=== PATIENT | male | born 1950 | race Hispanic/Latino ===

== ENCOUNTER 2016-10-18 23:03 | Emergency (ER) | payer OTHER, MEDICARE ==
[~2016-10-18] VITALS: Ht 180.3 cm; Wt 93.0 kg
[2016-10-18 23:08] VITALS: BP 147/73
--- NOTE | 2016-10-18 23:53 | RADIOLOGY REPORT ---
EXAMINATION: XR ANKLE, RIGHT CLINICAL INFORMATION: Pain. COMPARISON: None TECHNIQUE: AP, lateral, and mortise views of the right ankle. FINDINGS: There is a transverse fracture at the medial malleolus. There is no significant overlying soft tissue swelling at this location and the margins appear somewhat sclerotic, suggesting this is chronic. There is also a chronic healed fibular diaphyseal fracture noted. Ankle mortise is congruent. Significant degenerative changes are seen along the talar dome and ankle mortise with osteophyte formation. There is a prominent plantar heel spur. The soft tissues appear unremarkable. No ankle joint effusion. IMPRESSION: No definite acute fracture. Transverse fracture line of the medial malleolus has a chronic appearance. Degenerative changes along the ankle mortise. Plantar heel spur.
[2016-10-19] MEDS ORDERED: PERCOCET 5-3251 EACH PO (00:16)
--- NOTE | 2016-10-19 00:17 | ED ANKLE/FOOT INJURY COMPLAINT ---
History of Present Illness General Chief Complaint: Foot or Ankle Injury Stated Complaint: RIGHT ANKLE PAIN, Source: patient Exam Limitations: no limitations Vital Signs & Intake/Output Vital Signs & Intake/Output Vital Signs Date Time Temp Pulse Resp B/P B/P Pulse O2 O2 Flow FiO2 Mean Ox Delivery Rate 10/18 2308 98.5 82 20 147/73 97 Room Air ED Intake and Output 10/19 0000 10/18 1200 Intake Total Output Total Balance Patient 205 lb Weight Weight Reported by Patient Measurement Method Allergies Coded Allergies: No Known Allergies (10/18/16) Reconcile Medications Oxycodone HCl/Acetaminophen (Percocet 5-325 MG Tablet) 5 MG-325 MG TABLET 1-2 TAB PO Q6P PRN PAIN Triage Note: TRIAGE: PT TO ER C/C R ANKLE PAIN, ONSET THURSDAY S/P TWISTING INJURY. HAS TRIED ALEVE AND EXCEDRIN. Triage Nurses Notes Reviewed? yes Duration: day(s): (1), constant, continues in ED Timing: recent history Severity: moderate, severe Pain/Injury Location: Right: Ankle. No Modifying Factors: none HPI: 66-year-old male comes into emergency room with complaints of right ankle pain. Patient reports that the symptoms of a going on for the past day. Patient reports she slipped and twisted his ankle yesterday. History of previous fractures when he was younger and this ankle. Denies any trauma anywhere else on his body. Denies any other associated symptoms. (FCO [place]) Past History Travel History Traveled to [place] past 21 day No Medical History Any Pertinent Medical History? 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 No (FCO [place]) Review of Systems Review of Systems Constitutional: Reports: no symptoms. EENTM: Reports: no symptoms. Respiratory: Reports: no symptoms. Cardiovascular: Reports: no symptoms. GI: Reports: no symptoms. Genitourinary: Reports: no symptoms. Musculoskeletal: Reports: see HPI. Skin: Reports: no symptoms. Neurological/Psychological: Reports: no symptoms. Hematologic/Endocrine: Reports: no symptoms. Immunologic/Allergic: Reports: no symptoms. All Other Systems: Reviewed and Negative (FCO [place]) Physical Exam Physical Exam General Appearance: well developed/nourished, mild distress Head: atraumatic Eyes: Bilateral: normal appearance, EOMI. Ears, Nose, Throat: normal ENT inspection, hearing grossly normal Neck: normal inspection Cardiovascular/Respiratory: no respiratory distress Back: normal inspection Leg/Knee/Thigh Left: normal range of motion Leg/Knee/Thigh Right: normal range of motion Ankle Right: soft tissue tenderness, swelling, tenderness, limited range of motion Neuro/Vascular: normal motor function, normal sensation Psychiatric: awake, alert, oriented x 3 Skin: intact, normal color, warm/dry (FCO [place]) Progress Differential Diagnosis: fracture, dislocation, sprain, contusion, compartmental syndrome Plan of Care: 10/19/2016 12:22:53 AM Patient clinically looks well. Nontoxic-appearing. No evidence of fracture. Follow-up with orthopedic doctor. Return if any other concerns. Diagnostic Imaging: Viewed by Me: Radiology Read. Discussed w/RAD: Radiology Read. Radiology Impression: SERVICE DATE: 10/18/16 EXAM TYPE: RAD - XRY-ANKLE 3 OR MORE VIEWS R EXAMINATION: XR ANKLE, RIGHT CLINICAL INFORMATION: Pain. COMPARISON: None TECHNIQUE: AP, lateral, and mortise views of the right ankle. FINDINGS: There is a transverse fracture at the medial malleolus. There is no significant overlying soft tissue swelling at this location and the margins appear somewhat sclerotic, suggesting this is chronic. There is also a chronic healed fibular diaphyseal fracture noted. Ankle mortise is congruent. Significant degenerative changes are seen along the talar dome and ankle mortise with osteophyte formation. There is a prominent plantar heel spur. The soft tissues appear unremarkable. No ankle joint effusion. IMPRESSION: No definite acute fracture. Transverse fracture line of the medial malleolus has a chronic appearance. Degenerative changes along the ankle mortise. Plantar heel spur. DICTATED BY: FROYLAN BORJAS,KATHIE DATE/TIME DICTATED:10/18/162347 PRELOAD SUPERVISOR:ARMIN DATE/TIME TRANSCRIBED:10/18/162347 (FCO [place]) Departure Departure Disposition: HOME OR SELF CARE Condition: Stable Clinical Impression Primary Impression: Right ankle sprain Referrals: UNKNOWN (PCP/Family) Additional Instructions: Ice. Rest. Motrin for pain. Elevation. Follow-up with orthopedic doctor provided if not better in 3-5 days. If symptoms do not improve you'll require further evaluation with possible repeat x-rays as well as evaluation by automotive alignment specialist. Sprains can last anywhere from days to weeks. No high impact running or jumping if you have an ankle sprain or any type of lower extremity sprain. Return to normal activity only after symptoms have resolved. Departure Forms: Customer Survey General Discharge Information Prescriptions: Current Visit Scripts Oxycodone HCl/Acetaminophen (Percocet 5-325 MG Tablet) 1-2 TAB PO Q6P PRN PAIN #15 TAB (FCO [place]) PA/SEQUINS STRINGER Co-Sign Statement Statement: ED Attending supervision documentation- [] I saw and evaluated the patient. I have also reviewed all the pertinent lab results and diagnostic results. I agree with the findings and the plan of care as documented in the PA's/SEQUINS STRINGER's documentation. [X] I have reviewed the ED Record and agree with the PA's/SEQUINS STRINGER's documentation. [] Additions or exceptions (if any) to the PAs/SEQUINS STRINGER's note and plan are summarized below: [] (BOSTON BORJAS,SHELLEY Shine) Procedures Splinting Location: right ankle Pre-Made Type: pneumatic blue Splint Applied By: splint applied by me Pre-Proc Neuro Vasc Exam: normal Post-Proc Neuro Vasc Exam: normal (FCO [place])
== END 2016-10-19 00:42 ==
LOC: ERH 23:03
DX: S93.401A Sprain of unspecified ligament of right ankle, initial encounter (principal); W01.0XXA Fall on same level from slipping, tripping and stumbling without subsequent striking against object, initial encounter; Y92.9 Unspecified place or not applicable; Y93.9 Activity, unspecified
CPT/HCPCS: 73610-RT

== ENCOUNTER 2016-10-27 11:45 | Inpatient (IN) | payer OTHER, MEDICARE ==
[~2016-10-27] VITALS: Ht 180.3 cm; Wt 93.0 kg
[~2016-10-27 11:45] MED LIST: PERCOCET 5-3251 EACH PO
--- NOTE | 2016-10-27 11:50 | NUR ---
PT SENT IN BY . PT STATES HE SLIPPED AND HIS RIGHT ANKLE TURNED BLUE/RED/ PT WAS SENT FROM [facility] FOR EVAL TO R/O INFECTION VS GOUT. PT STATES HE WAS HERE A WEEK AGO THURSDAY AND WAS DISCHARGED WITH [facility].
[2016-10-27] MEDS ORDERED: LISINOPRIL-HCT1 EAC1 PO (12:50)
--- NOTE | 2016-10-27 13:30 | NUR ---
USMAN COATES AT BEDSIDE FOR EVAL.
--- NOTE | 2016-10-27 13:32 | ED ANKLE/FOOT INJURY COMPLAINT ---
History of Present Illness General Chief Complaint: Foot or Ankle Injury Stated Complaint: R FOOT ?INFECTED Source: patient Exam Limitations: no limitations Vital Signs & Intake/Output Vital Signs & Intake/Output Vital Signs Date Time Temp Pulse Resp B/P B/P Pulse O2 O2 Flow FiO2 Mean Ox Delivery Rate 10/27 1510 96.3 77 20 120/57 98 Room Air 10/27 1150 96.7 74 16 100/65 97 Room Air Allergies Coded Allergies: No Known Allergies (10/18/16) Reconcile Medications Amoxicillin 875 MG TABLET 1 TAB PO BID cellulitis Lisinopril/Hydrochlorothiazide (Lisinopril-Hctz 20-25 MG Tab) 20 MG-25 MG TABLET 1 TAB PO DAILY HEART (Reported) Oxycodone HCl/Acetaminophen (Percocet 5-325 MG Tablet) 5 MG-325 MG TABLET 1-2 TAB PO BID pain Sulfamethoxazole/Trimethoprim (Bactrim Ds Tablet) 800 MG-160 MG TABLET 1 TAB PO BID cellulitis Triage Note: PT SENT IN BY . PT STATES HE SLIPPED AND HIS RIGHT ANKLE TURNED BLUE/RED/ PT WAS SENT FROM [facility] FOR EVAL TO R/O INFECTION VS GOUT. Triage Nurses Notes Reviewed? yes Occurred: last week Duration: week(s): (1), constant, getting worse Timing: recent history Pain/Injury Location: Right: Ankle. Method of Injury: stubbed, twisted HPI: 66-year-old male comes into emergency room for further evaluation of swelling and pain to his right ankle. Patient was seen here week ago. Patient was given a boot and crutches and told to stay nonweightbearing to follow-up with orthopedic doctor. Patient ran out of his pain medication. Patient reports that a few days later he started to get some redness and pain to his ankle. Patient saw orthopedic doctor today who wanted to come in for further evaluation with blood work. [facility] across the street. Denies any fever chills. Complains of persistent sharp throbbing pain. (FCO [place]) Past History Travel History Traveled to [place] past 21 day No Medical History Any Pertinent Medical History? 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 No (FCO [place]) Review of Systems Review of Systems Constitutional: Reports: no symptoms. EENTM: Reports: no symptoms. Respiratory: Reports: no symptoms. Cardiovascular: Reports: no symptoms. GI: Reports: no symptoms. Genitourinary: Reports: no symptoms. Musculoskeletal: Reports: see HPI. Skin: Reports: see HPI. Neurological/Psychological: Reports: no symptoms. Hematologic/Endocrine: Reports: no symptoms. Immunologic/Allergic: Reports: no symptoms. All Other Systems: Reviewed and Negative (FCO [place]) Physical Exam Physical Exam General Appearance: well developed/nourished, mild distress Head: atraumatic Eyes: Bilateral: normal appearance. Ears, Nose, Throat: normal ENT inspection, hearing grossly normal Neck: normal inspection Cardiovascular/Respiratory: no respiratory distress Back: normal inspection Leg/Knee/Thigh Left: normal inspection Ankle Right: erythema, swelling, warm to touch, area approximately 6 cm in diameter Neuro/Vascular: normal motor function, normal sensation Psychiatric: awake, alert, oriented x 3 Skin: intact, normal color, warm/dry (FCO [place]) Progress Differential Diagnosis: DVT, CHF, arterial insufficiency, cellulitis, septic arthritis, gout, fracture, dislocation, sprain, contusion, compartmental syndrome Plan of Care: Orders Procedure Date/time Status Heart Healthy Diet 10/28 B Active Admit to inpatient 10/27 1628 Active Vital Signs 10/27 1628 Active Code Status 10/27 1628 Active Patient Data 10/27 1611 Active BLOOD CULTURE 10/27 1541 Active C-REACTIVE PROTEIN 10/27 1338 Complete CBC WITHOUT DIFFERENTIAL 10/27 1338 Complete BASIC METABOLIC PANEL 10/27 1338 Complete Current Medications Sig/Rajeev Start time Last Medication Dose Stop Time Status Admin Amoxicillin 500 MG ONCE ONE 10/27 1515 CAN (Amoxil) 10/27 1516 Trimethoprim/ 1 TAB ONCE ONE 10/27 1515 CAN Sulfamethoxazole 10/27 1516 (Bactrim DS) Laboratory Tests 10/27/16 1338: Anion Gap 18 H, Estimated GFR 38 L, BUN/Creatinine Ratio 28.3 H, Glucose 98, Calcium 9.9, C-Reactive Prot, Quant > 9.0 H, CBC w Diff NO MAN DIFF REQ, RBC 4.01 L, MCV 85.5, MCH 28.8, RDW 14.3, MPV 7.2 L, Gran % 78.4 H, Lymphocytes % 11.6 L, Monocytes % 7.7, Eosinophils % 2.1, Basophils % 0.2, Absolute Granulocytes 11.7 H, Absolute Lymphocytes 1.7, Absolute Monocytes 1.1 H, Absolute Eosinophils 0.3, Absolute Basophils 0, PUBS MCHC 33.6 Microbiology 10/27 1630 BLOOD: Blood Culture - RECD 10/27 1620 BLOOD: Blood Culture - RECD Departure Departure Disposition: HOME OR SELF CARE Condition: Stable Clinical Impression Primary Impression: Cellulitis of right ankle Referrals: ROSALIA HE APRN (PCP/Family) Departure Forms: Customer Survey General Discharge Information Prescriptions: Current Visit Scripts Sulfamethoxazole/Trimethoprim (Bactrim Ds Tablet) 1 TAB PO BID #14 TAB Amoxicillin 1 TAB PO BID #14 TAB Oxycodone HCl/Acetaminophen (Percocet 5-325 MG Tablet) 1-2 TAB PO BID #15 TAB Admission Note Spoke With: CADEN SCHULER MD Documentation of Exam: Documentation of any treatments & extenuating circumstances including Concerns Regarding Discharge (functional status, medication knowledge or non-compliance, living conditions, etc.) that warrant an admission rather than observation: Patient will require IV Unasyn. Patient has a significant cellulitis to right lower leg that will require IV meds. Orthopedic consultation. (FCO [place]) PA/COMPOSITION MOLDER Co-Sign Statement Statement: ED Attending supervision documentation- [X] I saw and evaluated the patient. I have also reviewed all the pertinent lab results and diagnostic results. I agree with the findings and the plan of care as documented in the PA's/COMPOSITION MOLDER's documentation. [] I have reviewed the ED Record and agree with the PA's/COMPOSITION MOLDER's documentation. [] Additions or exceptions (if any) to the PAs/COMPOSITION MOLDER's note and plan are summarized below: [] (MICHAEL PARMAR DO) ED Attending Observation Initial Observation Note: I have seen and personally examined ALLENANDREW ENRIQUEZ on 10/27/16 at 1352. I agree with the current emergency department documentation. The disposition (admission or discharge) is uncertain at this time, he needs a period of observation for the following reason(s): The ED Nurse caring for this patient has been personally informed as to what the patient is being observed for. (JAXON MARY,FCO)
[2016-10-27] MEDS ORDERED: BACTRIM DS TAB1 EACH PO (13:33)
[2016-10-27] MEDS ORDERED: AMOXICILLIN875 M1 PO (13:33)
[2016-10-27] MEDS ORDERED: PERCOCET 5-3251 EACH PO (13:33)
--- NOTE | 2016-10-27 14:13 | NUR ---
LABS DRAWN AND SENT BLUE, SST, LAV
[2016-10-27 14:20] LABS: ABSOLUTE BASOPHIL COUNT 0 /CUMM (0.0-0.2); ABSOLUTE EOSINOPHIL COUNT 0.3 /CUMM (0.0-0.7); ABSOLUTE GRANULOCYTE CT 11.7 /CUMM (1.4-6.5); ABSOLUTE LYMPH COUNT 1.7 /CUMM (1.2-3.4); ABSOLUTE MONOCYTE COUNT 1.1 /CUMM (0.10-0.60); BASOPHIL % 0.2 % (0.0-2.0); EOSINOPHIL % 2.1 % (0-5); HEMATOCRIT 34.3 % (42-52); MEAN CORPUSCULAR HGB 28.8 PG (27.0-31.0); MEAN CORPUSCULAR HGB CONC 33.6 G/DL (33.0-37.0); MEAN CORPUSCULAR VOLUME 85.5 FL (80.0-94.0); MEAN PLATELET VOLUME 7.2 FL (7.4-10.4); PLATELET COUNT 625 /CUMM (130-400); RBC DISTRIBUTION WIDTH 14.3 % (11.5-14.5); RED BLOOD CELL CT 4.01 /CUMM (4.70-6.10)
[2016-10-27 14:23] LABS: GRANULOCYTE % 78.4 % (42.2-75.2)
--- NOTE | 2016-10-27 16:30 | NUR ---
SECOND SET OF BLOOD CULTURES DONE AND SENT TO LAB.
--- NOTE | 2016-10-27 16:54 | History & Physical ---
LE RICO MD 10/27/16 0892: General Information and HPI MD Statement: I have seen and personally examined ANDREW ALLEN and documented this H&P. The patient is a 66 year old M who presented with a patient stated chief complaint of [right ankle pain]. Source of Information: patient Exam Limitations: agitation History of Present Illness: 66-year-old male with PMH of HTN, and right ankle fracture, came in for persistent right ankle pain, redness, and swelling. He was rather agitated during our interview (because he felt that he has been repeating himself, and being in pain - pt denies having pain meds although morphine has been given) and at times seem to be a poor historian. He reported that he slipped at work on October 17, and presented to the ER on October 18 around 1030 pm, with chief complaint of pain. No fracture was found at imaging at that time. He denies getting abx since then. He also was prescribed 15 pills of percocet which he filled on 10/19/16. Patient was given a boot and crutches and told to stay nonweightbearing to follow-up with orthopedic doctor. Patient ran out of his pain medication. He has tried aleve, excedrin, and ibuprofen, without significant relief in pain. He has seen his PCP, and orthopedic doctor, Dr. Juárez, at [facility], and he was asked to present here for gout workup. He continues to endorse 10/10 sharp pain localized to the right ankle, especially with movement, with associated redness, swelling, and warmth (area marked). Could not find his baseline labs (today's lab significant for bun/cr 51/1.8); pt reports having multiple workup done for his kidneys but he is unable to elaborate. Allergies/Medications Allergies: Coded Allergies: No Known Allergies (10/18/16) Home Med list Amoxicillin 875 MG TABLET 1 TAB PO BID cellulitis Lisinopril/Hydrochlorothiazide (Lisinopril-Hctz 20-25 MG Tab) 20 MG-25 MG TABLET 1 TAB PO DAILY HEART (Reported) Oxycodone HCl/Acetaminophen (Percocet 5-325 MG Tablet) 5 MG-325 MG TABLET 1-2 TAB PO BID pain Sulfamethoxazole/Trimethoprim (Bactrim Ds Tablet) 800 MG-160 MG TABLET 1 TAB PO BID cellulitis Past History Travel History Traveled to [place] past 21 day No Medical History Neurological: NONE EENT: NONE Cardiovascular: hypertension Respiratory: NONE Gastrointestinal: NONE Hepatic: NONE Renal: NONE Musculoskeletal: R LEG FX R ANKLE FX Psychiatric: NONE Endocrine: NONE Blood Disorders: NONE Cancer(s): NONE 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 Home Smoking Status: Former Smoker ETOH Use: occasional use Illicit Drug Use: denies illicit drug use Functional Ability ADLs Independent: dressing, eating, toileting, bathing. Ambulation: independent IADLs Independent: shopping, housework, finances, food prep, telephone, transportation , medication admin. Review of Systems Review of Systems Constitutional: Reports: chills. EENTM: Denies: visual changes. Cardiovascular: Denies: chest pain. Respiratory: Denies: cough, short of breath. GI: Denies: abdominal pain, bloating, constipation, diarrhea. Genitourinary: Denies: dysuria. Musculoskeletal: Reports: joint pain, joint swelling. Exam & Diagnostic Data Last 24 Hrs of Vital Signs/I&O Vital Signs Date Time Temp Pulse Resp B/P B/P Pulse O2 O2 Flow FiO2 Mean Ox Delivery Rate 10/27 1845 98.4 79 15 128/65 97 Room Air Room Air 10/27 1726 Room Air Room Air 10/27 1510 96.3 77 20 120/57 98 Room Air 10/27 1150 96.7 74 16 100/65 97 Room Air Intake & Output 10/27 1600 10/27 0800 10/27 0000 Intake Total Output Total Balance Patient 92.986 kg Weight Weight Reported by Patient Measurement Method Physical Exam General Appearance Alert, Oriented X3, slightly agitated Cardiovascular Regular Rate, Normal S1, Normal S2, No Murmurs Lungs Clear to Auscultation, Normal Air Movement Abdomen Normal Bowel Sounds, Soft, No Tenderness Neurological Normal Speech Extremities redness, warmth, swelling, over medial right ankle, from base of the heel up to 20 cm Vascular Normal Pulses Body Front and Back (Adult) 1) warm, red, edematous Last 24 Hrs of Labs/Delroy: Laboratory Tests 10/27/16 1338: Anion Gap 18 H, Estimated GFR 38 L, BUN/Creatinine Ratio 28.3 H, Glucose 98, Calcium 9.9, C-Reactive Prot, Quant > 9.0 H, CBC w Diff NO MAN DIFF REQ, RBC 4.01 L, MCV 85.5, MCH 28.8, RDW 14.3, MPV 7.2 L, Gran % 78.4 H, Lymphocytes % 11.6 L, Monocytes % 7.7, Eosinophils % 2.1, Basophils % 0.2, Absolute Granulocytes 11.7 H, Absolute Lymphocytes 1.7, Absolute Monocytes 1.1 H, Absolute Eosinophils 0.3, Absolute Basophils 0, PUBS MCHC 33.6 Microbiology 10/27 1630 BLOOD: Blood Culture - RECD 10/27 162 BLOOD: Blood Culture - RECD Assessment/Plan Assessment: 66-year-old male with PMH of HTN, ankle fracture, presented for persistent pain, redness, and swelling s/p trauma. # Right medial ankle cellulitis vs septic arthritis * Ortho consulted for arthrocentesis * F/U right ankle xray * f/u BCX2 * Continue unasyn * Pain control with morphine 2q4p, Percocet 2q6p, Roxicodone 5q6, acetaminophen # HTN * Continue lisinopril/hctz Diet: heart healthy DVT ppx: mech and pharm DNR/DNI As Ranked By This Provider Problem List: 1. Cellulitis of right ankle Core Measures/Miscellaneous Acute Coronary Syndrome ACS Diagnosis: No Cerebrovascular Accident CVA/TIA Diagnosis: No Congestive Heart Failure CHF Diagnosis: No Venous Thromboembolism VTE Risk Factors: Acute medical illness, Age > 40 No Mech VTE prophylaxis d/t: No contraindications No VTE Pharm Prophylaxis d/t: No contraindications VTE Diagnosis: No VTE Type: NONE VTE Confirmed by (Test): NONE Severe Sepsis Severe Sepsis Present: No Septic Shock Septic Shock Present: No Miscellaneous Documentation Attending Case Discussed With: CADEN SCHULER MD Primary Care Physician: ROSALIA HE APRN Patient sees these Specialists N/A Level of Patient Care: General Medicine Consults Needed: Consulting Specialty: Orthopedics Consulting Physician: Dr. Abbott Reason for Consult: arthrocentesis AGGIE BURNS 10/27/16 3968: Resident Review Statement Resident Statement: examined this patient, discussed with analysis internship, agreed with analysis internship Other Findings: This is a 66-year-old male with past medical history of hypertension, CKD, intermittent smoker, nonalcoholic, no illicit drug abuse, was seen on 10/18/2016 having a mechanical fall and tripping over the right ankle, at which point x-ray in the emergency department did not show any acute fracture, showed old malunioned medial mallelar fracture comes in today from home with chief complaint of persistent worsening right ankle pain and swelling. He describes the pain as sharp in nature, with restricted mobility, severe pain 10 out of 10, intermittent, does not radiate anywhere,no other joints involved.He was prescribed ibuprofen initially by the PCP which did not help. Subsequently was also prescribed Percocet but did not help either. The swelling and the redness has been there all this while, as per the patient does not seem to be worsening but constant and is in severe pain. Patient was seen by the orthopedic on 10/19, was given important crutches, asked to continue nonweightbearing, he has not been going to work since then. Vitals at the emergency department noted to be temperature of 98.4, pulse of 79, respiration 15, blood pressure 128/65, he was 95% saturating on . Room air. On physical exam he was alert oriented and in moderate distress secondary to the pain. CVS regular rate, normal S1-S2 no murmurs. Lungs clear to auscultation bilateral air entry present. Abdomen normal bowel sounds soft nontender. Neurological exam was nonfocal. Extremities the left lower extremity was completely normal however the right lower extremity had redness and warmth swelling periankle area, it was soft to hard in consistency, it was warm to touch, extremely limited range of motion at the ankle, patient could wiggle the toes fine, pulses were palpable. She was found to have a white count of 15, H/H of 11.5/34.3, platelet of 625. BUN and creatinine 51/1.8 which as per the patient he has baseline chronic kidney disease for more than 20 years now. He was found to have an anion gap of 18, C-reactive protein was greater than 9.0. Blood cultures were sent from the emergency department. He received one time of Bactrim, and amoxicillin Problem list along with assessment and plan Problem #1 right medial ankle swelling, rule out septic arthritis versus cellulitis versus severe degeneration of the ankle status post prior fracture. * Continue monitor vitals every shift. * Repeat x-ray of the right ankle. * Cultures were already sent, continue to follow blood cultures. * Continue IV antibiotics. * ortho consult * Consider medrol pack id worsening swelling * need to wear boot all the time. * leg elevation , rest and ice. Problem # 2 HTN * Ct home medications * monitor BP closely. Mild moderate and severe pain Patient is DNR/DNI. Regular diet. DVT prophylaxis with SC heparin. CADEN SCHULER MD 10/27/161811: Attending MD Review Statement Attending Statement Attending MD Statement: examined this patient, discuss w/resident/PA/READING INTERVENTION TEACHER, agreed w/resident/PA/READING INTERVENTION TEACHER, reviewed EMR data (avail), discussed with nursing, reviewed images, amended to note Attending Assessment/Plan: 66-year-old male with past medical history significant for hypertension, CAD stage III, who slipped at his workplace about 10 days ago. He came into the emergency room and was given boots, crutches and was discharged on pain medications. Pain did not improve and symptoms continued to get worse. He started noticing some redness and swelling to the right ankle. He went to his primary care doctor and was referred to an orthopedic doctor. He does not remember the name of the orthopedic doctor but due to worsening of symptoms, redness and swelling of the right ankle he has been sent back to the emergency room. In the emergency room he was diagnosed with possible cellulitis therefore medicine was called for admission. Patient complain of excruciating pain in the right ankle. He has very limited, almost 0 range of motion at the right ankle. He is able to wiggle his toes. He has good pulses. He does have leukocytosis. He does not have a fever. Vital Signs Date Time Temp Pulse Resp B/P B/P Pulse O2 O2 Flow FiO2 Mean Ox Delivery Rate 10/27 1726 Room Air Room Air 10/27 1510 96.3 77 20 120/57 98 Room Air 10/27 1150 96.7 74 16 100/65 97 Room Air on exam; aox3, nad cv; s1,s2, rrr resp; clear bad; soft, nt, bs+ ext; positive edema right ankle. skin; positive erythema and swelling on the right ankle. Muscular skeletal pain almost zero range of motion of the right ankle Laboratory Tests 10/27 1338 Chemistry Sodium (137 - 145 mmol/L) 143 Potassium (3.5 - 5.1 mmol/L) 4.1 Chloride (98 - 107 mmol/L) 101 Carbon Dioxide (22 - 30 mmol/L) 24 Anion Gap (5 - 16) 18 H BUN (9 - 20 mg/dL) 51 H Creatinine (0.7 - 1.2 mg/dL) 1.8 H Estimated GFR (>60 ml/min) 38 L BUN/Creatinine Ratio (7 - 25 %) 28.3 H Glucose (65 - 99 mg/dL) 98 Calcium (8.4 - 10.2 mg/dL) 9.9 C-Reactive Prot, Quant (<1.0 mg/dL) > 9.0 H Hematology CBC w Diff NO MAN DIFF REQ WBC (4.8 - 10.8 /CUMM) 15.0 H RBC (4.70 - 6.10 /CUMM) 4.01 L Hgb (14.0 - 18.0 G/DL) 11.5 L Hct (42 - 52 %) 34.3 L MCV (80.0 - 94.0 FL) 85.5 MCH (27.0 - 31.0 PG) 28.8 RDW (11.5 - 14.5 %) 14.3 Plt Count (130 - 400 /CUMM) 625 H MPV (7.4 - 10.4 FL) 7.2 L Gran % (42.2 - 75.2 %) 78.4 H Lymphocytes % (20.5 - 51.1 %) 11.6 L Monocytes % (1.7 - 9.3 %) 7.7 Eosinophils % (0 - 5 %) 2.1 Basophils % (0.0 - 2.0 %) 0.2 Absolute Granulocytes (1.4 - 6.5 /CUMM) 11.7 H Absolute Lymphocytes (1.2 - 3.4 /CUMM) 1.7 Absolute Monocytes (0.10 - 0.60 /CUMM) 1.1 H Absolute Eosinophils (0.0 - 0.7 /CUMM) 0.3 Absolute Basophils (0.0 - 0.2 /CUMM) 0 PUBS MCHC (33.0 - 37.0 G/DL) 33.6 A/P; 66-year-old male with history significant for hypertension, CAD stage III, recent ankle injury now getting admitted with cellulitis of the right ankle/ right lower extremity, need to rule out septic joint. Patient will be admitted to medicine floor. Please obtain right ankle x-ray. Please repeat his right ankle x-ray as the previous one was 10 days ago which did not show any definite acute fractures fractures. We will continue the antibiotics. Please obtain blood cultures. Please consult orthopedic for today. Patient does need arthrocentesis for the right ankle to rule out septic joint. Patient should be on pain pathway. DVT prophylaxis: Heparin subcutaneous.
--- NOTE | 2016-10-27 18:55 | NUR ---
PT MEDICATED PER EMAR. TOLERATED WELL.
--- NOTE | 2016-10-27 18:55 | NUR ---
PT TO ROOM 205 BED 1
--- NOTE | 2016-10-27 19:12 | NUR ---
UNABLE TO GIVE REPORT AT THIS TIME.
--- NOTE | 2016-10-27 19:50 | Cons- Orthopedic ---
General Information and HPI Consulting Request Date of Consult: 10/27/16 Requested By: CADEN SCHULER MD Reason for Consult: PAIN LEFT ANKLE History of Present Illness: PATIENT A 66 YEAR OLD MALE IN HIS USUAL STATE OF HEALTH UNTIL A SLIP AND FALL INVOLVING THE RIGHT ANKLE. HAD A PREVIOUS MEDIAL MALLEOLAR FRACTURE WITH HIGH FIBULA FRACTURE YEARS AGO NEVER TREATED WITH OPEN REDUCTION INTERNAL FIXATION . HE AT THAT TIME ALSO HAD A SYNDESMOTTIC INJURY WITH AN UNSTABLE ANKLE. HIS ANKLE SUBSEQUENTLY SHIFTED LATERALLY AND THIS HAS LED TO NONUNION OF THE MEDIAL MALLEOLUS AND END STAGE ANKLE ARTHRITIS. THIS WAS FLARED UP BY RECENT INJURY AND PROGRESSION OF HIS ARTHRITIS.HE DENIES GOUT,DIABETES. NO PRIOR INFECTIOUS HISTORY. Allergies/Medications Allergies: Coded Allergies: No Known Allergies (10/18/16) Home Med List: Amoxicillin 875 MG TABLET 1 TAB PO BID cellulitis Lisinopril/Hydrochlorothiazide (Lisinopril-Hctz 20-25 MG Tab) 20 MG-25 MG TABLET 1 TAB PO DAILY HEART (Reported) Oxycodone HCl/Acetaminophen (Percocet 5-325 MG Tablet) 5 MG-325 MG TABLET 1-2 TAB PO BID pain Sulfamethoxazole/Trimethoprim (Bactrim Ds Tablet) 800 MG-160 MG TABLET 1 TAB PO BID cellulitis Past History Medical History Neurological: NONE EENT: NONE Cardiovascular: hypertension Respiratory: NONE Gastrointestinal: NONE Hepatic: NONE Renal: NONE Musculoskeletal: R LEG FX R ANKLE FX Psychiatric: NONE Endocrine: NONE Blood Disorders: NONE Cancer(s): NONE 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 Home Smoking Status: Former Smoker ETOH Use: occasional use Illicit Drug Use: denies illicit drug use Functional Ability ADLs Independent: dressing, eating, toileting, bathing. Ambulation: independent IADLs Independent: shopping, housework, finances, food prep, telephone, transportation , medication admin. Exam & Diagnostic Data Vital Signs and I&O Vital Signs Date Time Temp Pulse Resp B/P B/P Pulse O2 O2 Flow FiO2 Mean Ox Delivery Rate 10/27 1845 98.4 79 15 128/65 97 Room Air Room Air 10/27 1726 Room Air Room Air 10/27 1510 96.3 77 20 120/57 98 Room Air 10/27 1150 96.7 74 16 100/65 97 Room Air Intake & Output 10/27 1600 10/27 0800 10/27 0000 10/26 1600 10/26 0800 10/26 0000 Intake Total Output Total Balance Patient 205 lb Weight Weight Reported by Patient Measurement Method Physical Exam General Appearance: well developed/nourished, alert, awake Head: normal appearance Extremities: normal inspection (HAS SOME ERYTHEMA MEDIAL SIDE ), normal capillary refill, inflammation, swelling, tenderness Other Physical Findings: ON PHYSICAL EXAM HAS SIGNIFICANT INFLAMMATION OVER THE MEDIAL ASPECT OF HIS ANKLE OVER THE NON UNION. PULSES NORMAL MILD INCREASED TEMP DUE TO INFLAMMATION DUE TO INSTABILITY OF ANKLE. Imaging Results: XRAYS SHOW MEDIAL MALLEOLAR NONUNION WITH LATERAL SHIFT OF ANKLE HEALED HIGH FIBULAR FRACTURE END STAGE ARTHRITIS IF ANKLE JOINT INFLAMMED DUE TO INSTABILITY AND FLARE OF END STAGE ARTHRITIS Assessment/Plan Assessment/Plan PATIENT WITH RIGHT ANKLE END STAGE ARTHRITIS CURRENTLY VERY INFLAMMED NEEDS NSAIDS ICE ELEVATION TOE TOUCH WEIGHTBEARING WITH CRUTCHES MIGHT TRY MEDROL PACK NEEDS BOOT ON AT ALL TIMES WHEN OUT OF BED WILL NEED SHORT COURSE OF PAIN MEDS. WILL REQUIRE ANKLE FUSION IN THE FUTURE. NO NEED TO TAP THE JOINT CURRENLY HAVE HIM SEE US IN OFFICE WHEN DISCHARGED. SHOULD BE AT HOME ELEVATING AND ICING UNTIL SWELLING DOWN. Consult Acknowledgment - Thank you for your consult request. Attending MD Review Statement Attending Statement Attending MD Statement: examined this patient
--- NOTE | 2016-10-27 20:34 | NUR ---
PT A/O. RESP UNLABORED. PT SEEMS TO BE RESTING COMFORTABLY.
--- NOTE | 2016-10-27 22:10 | NUR ---
PT UP TO FLOOR AT 2140. PT A/O X3,. C/O SEVERE PAIN TO R INNER ANKLE. PAIN MED GIVEN PER EMAR. ANKLE RED WARM TO TOUCH AND EDEMATOUS. NO BREAKDOWN NOTED. PT OOB W DE W APPROPRIATE TECHNIQUE. PT REFUSED BED ALARM. IV PATENT TO [facility]. WILL MONITOR
[2016-10-27 22:39] VITALS: BP 130/64
[2016-10-28 06:13] VITALS: BP 126/62
--- NOTE | 2016-10-28 07:12 | PN- Housestaff ---
TRISHA BORJAS,LE 10/28/16 0712: Subjective Follow-up For: cellulitis Subjective: pt continues to endorse 7/10 pain on the right foot. no significant improvement noted in redness and swelling. he wants the pain to be 0. orthopedic recc OP f/u for ankle fusion surgery in the future. his leukocytosis improved from 15 to 13.4 . hb 11.5 to 10, pl 625 to 574. esr pending. bun/cr 51/1.8 to 55/1.8. pain score 0-7, he received 5mg roxicodone, 2 tabs of percocet, and 8mg morphine in total since admission. ankle xray read Prominent soft tissue swelling is consistent with clinical history of cellulitis. In addition, narrowing of the tibiotalar joint has progressed since 10/18/2016 which may be an indicator of septic arthritis as questioned clinically. Consider further evaluation with MRI. A joint aspiration may be necessary to exclude a septic joint. We don't have MRI today, will re-consult ortho Review of Systems Constitutional: Reports: see HPI. Objective Last 24 Hrs of Vital Signs/I&O Vital Signs Date Time Temp Pulse Resp B/P B/P Pulse O2 O2 Flow FiO2 Mean Ox Delivery Rate 10/28 0613 98.7 75 20 126/62 96 Room Air 10/27 2239 99.6 74 20 130/64 97 Room Air 10/27 2115 98.6 82 18 134/85 95 Room Air 10/27 1845 98.4 79 15 128/65 97 Room Air Room Air 10/27 1726 Room Air Room Air 10/27 1510 96.3 77 20 120/57 98 Room Air 10/27 1150 96.7 74 16 100/65 97 Room Air Intake & Output 10/28 1600 10/28 0800 10/28 0000 Intake Total 350 100 Output Total 800 300 Balance -450 -200 Intake, IV 100 100 Intake, Oral 250 0 Output, Urine 800 300 Patient 92.986 kg Weight Weight Reported by Patient Measurement Method Physical Exam General Appearance: Alert, Oriented X3, Cooperative, No Acute Distress Cardiovascular: Regular Rate, Normal S1, Normal S2 Lungs: Clear to Auscultation, Normal Air Movement Abdomen: Normal Bowel Sounds, Soft, No Tenderness Extremities: no improvement in redness and swelling of the medial right foot Current Medications: Current Medications Sig/Rajeev Start time Last Medication Dose Route Stop Time Status Admin Acetaminophen 650 MG Q6P PRN 10/27 1730 AC PO Amoxicillin 0 .STK-MED ONE 10/27 1544 DC PO Amoxicillin 500 MG ONCE ONE 10/27 1515 CAN PO 10/27 1516 Ampicillin Sodium/ 3,000 MG Q6 10/28 1200 AC Sulbactam Sodium IV Sodium Chloride 100 ML Ampicillin Sodium/ 1,500 MG Q6 10/28 0600 DC 10/28 Sulbactam Sodium IV 0522 Sodium Chloride 100 ML Ampicillin Sodium/ 0 .STK-MED ONE 10/27 1623 DC Sulbactam Sodium .ROUTE Ampicillin Sodium/ 3,000 MG ONCE ONE 10/27 1545 DC 10/27 Sulbactam Sodium IV 10/27 1614 1630 Sodium Chloride 100 ML Ceftriaxone Sodium 1,000 MG DAILY 10/28 1000 CAN IV Heparin Sodium 0 .STK-MED ONE 10/27 1843 DC (Porcine) .ROUTE Heparin Sodium 5,000 UNIT Q8 10/27 1723 AC 10/28 (Porcine) SC 0522 Morphine Sulfate 0 .STK-MED ONE 10/27 1844 DC .ROUTE Morphine Sulfate 2 MG Q4P PRN 10/27 1815 AC 10/28 IV 0153 Morphine Sulfate 4 MG ONCE ONE 10/27 1630 DC 05 IV 10/27 1631 1852 Oxycodone HCl 5 MG Q6H 10/27 1730 DC 10/28 PO 0521 Oxycodone/ 2 TAB Q6P PRN 10/28 0930 AC 10/28 Acetaminophen PO 1008 Oxycodone/ 2 TAB Q6P PRN 10/27 1730 DC Acetaminophen PO Trimethoprim/ 0 .STK-MED ONE 10/27 1543 DC Sulfamethoxazole PO Trimethoprim/ 1 TAB ONCE ONE 10/27 1515 CAN Sulfamethoxazole PO 10/27 1516 Vancomycin HCl 1,250 MG DAILY 10/28 1000 CAN Sodium Chloride 250 ML IV Assessment/Plan Assessment: 66-year-old male with PMH of HTN, ankle fracture, presented for persistent pain, redness, and swelling s/p trauma. # Right medial ankle cellulitis vs septic arthritis - Right ankle xray: Prominent soft tissue swelling is consistent with clinical history of cellulitis. In addition, narrowing of the tibiotalar joint has progressed since 10/18/2016 which may be an indicator of septic arthritis as questioned clinically. Consider further evaluation with MRI. A joint aspiration may be necessary to exclude a septic joint. * Ortho consulted: recc NSAIDs, ice, elevation, ambulate with boot, consider medrol pack, f/u with Dr. Abbott for ankle fusion surgery. No plan for arthrocentesis * f/u BCX2 * Continue unasyn * Pain control with morphine 2q4p, Percocet 2q6p, acetaminophen. Given his CKD, would avoid NSAIDs. # HTN * Continue lisinopril/hctz Diet: heart healthy DVT ppx: mech and pharm DNR/DNI Problem List: 1. Cellulitis of right ankle Pain Ratin Pain Location: right foot Pain Goal: Pain 4 or less Pain Plan: morphine and percocet Tomorrow's Labs & Rationales: cbc for leukocytosis, cellulitis bep for ckd vs solo DVT/Prophylaxis: mechanical, pharmacological Consulting Request: Consulting Specialty: Orthopedics Consulting Physician: Dr. Abbott Reason for Consult: arthrocentesis PADDY SCHWAB 10/28/16 1232: Attending MD Review Statement Attending Statement Attending MD Statement: examined this patient, discuss w/resident/PA/CITY MAINTENANCE MANAGER, agreed w/resident/PA/CITY MAINTENANCE MANAGER, discussed with family, reviewed EMR data (avail), discussed with nursing, discussed with case mgmt, reviewed images, amended to note Attending Assessment/Plan: 66-year-old male with history significant for hypertension, CKD stage III, recent ankle injury now getting admitted with cellulitis of the right ankle/ right lower extremity, need to rule out septic joint. Patient admitted to medicine floor. xray ankle reviewed by orthopedics, doubt septic arthritis, no planned arthrocentesis as per ortho. c/w abx, f/u cultures. pain control. DVT prophylaxis: Heparin subcutaneous.
[2016-10-28 08:12] LABS: ABSOLUTE BASOPHIL COUNT 0 /CUMM (0.0-0.2); ABSOLUTE EOSINOPHIL COUNT 0.6 /CUMM (0.0-0.7); ABSOLUTE GRANULOCYTE CT 9.3 /CUMM (1.4-6.5); ABSOLUTE LYMPH COUNT 1.9 /CUMM (1.2-3.4); ABSOLUTE MONOCYTE COUNT 1.6 /CUMM (0.10-0.60); BASOPHIL % 0.4 % (0.0-2.0); EOSINOPHIL % 4.2 % (0-5); GRANULOCYTE % 69.6 % (42.2-75.2); MEAN CORPUSCULAR HGB 28.8 PG (27.0-31.0); MEAN CORPUSCULAR HGB CONC 33.2 G/DL (33.0-37.0); MEAN CORPUSCULAR VOLUME 86.6 FL (80.0-94.0); MEAN PLATELET VOLUME 7.3 FL (7.4-10.4); PLATELET COUNT 574 /CUMM (130-400); RBC DISTRIBUTION WIDTH 14.3 % (11.5-14.5); RED BLOOD CELL CT 3.47 /CUMM (4.70-6.10); WHITE BLOOD CELL COUNT 13.4 /CUMM (4.8-10.8)
--- NOTE | 2016-10-28 09:41 | NUR ---
NURSING NOTE" PT LEFT FLOOR VIA STRETCHER WITH DISTIRBUTION FOR ANKLE XRAY PT AWAKE, A/OX3, ROOM AIR, DENIES PAIN, TICKET TO RIDE COMPLETE, AWAIT RETURN TO FLOOR/
--- NOTE | 2016-10-28 10:06 | NUR ---
NURSING NOTE: PT BACK TO FLOOR VIA STRETCHER WITH DISTRIBUTION FROM Joanne MYERS/NESTOR, SETTLED INTO BED, WILL MEDICATE FOR PAIN, CONT TO MONITOR.
--- NOTE | 2016-10-28 10:20 | RADIOLOGY REPORT ---
EXAMINATION: XR ANKLE, RIGHT CLINICAL INFORMATION: Right ankle pain, cellulitis. Evaluate for septic arthritis. COMPARISON: 10/18/2016 TECHNIQUE: AP, lateral, and mortise views of the right ankle. FINDINGS: Again demonstrated is a chronic, ununited fracture of the medial malleolus. There is diffuse soft tissue swelling, prominent superficial to the medial malleolus, which is new and could represent cellulitis. In addition, tibiotalar joint space narrowing has progressed raising the suspicion of a septic joint as questioned. There is a lucency of the lateral talar dome compatible with a subchondral cyst/osteochondral lesion. There is a chronic appearing articular erosion/remodeling at the lateral aspect of the distal tibia. Remote, healed fracture of the fibula. Large heel spur. IMPRESSION: Prominent soft tissue swelling is consistent with clinical history of cellulitis. In addition, narrowing of the tibiotalar joint has progressed since 10/18/2016 which may be an indicator of septic arthritis as questioned clinically. Consider further evaluation with MRI. A joint aspiration may be necessary to exclude a septic joint.
[2016-10-28] MEDS ORDERED: AUGMENTIN 875-1 EACH PO (10:22)
[2016-10-28] MEDS ORDERED: PERCOCET 5-3251 EACH PO (10:22)
--- NOTE | 2016-10-28 10:46 | Event Note ---
Event Note Event Note: Spoke to Dr. Colton Abbott.I reviewed with him the ankle xray findings and suspicion of spetic arthritis. He still believes that its not spetic arthritis and recommended against the MRI and furthetr imaging. Also no plan of doing arthrocentesis.
--- NOTE | 2016-10-28 13:15 | Patient Discharge Instructions ---
Discharge Instructions General Discharge Information You were seen/treated for: reddness and swelling of the right foot Special Instructions: please do not put any weight on the right foot. please f/u with orthopedics in1 week Acute Coronary Syndrome Inclusion Criteria At DC or during hospital stay patient has or had the following: ACS DIAGNOSIS No Discharge Core Measures Meds if any: Prescribed or Continued at Discharge Meds if any: NOT Prescribed or Continued at Discharge Congestive Heart Failure Inclusion Criteria At DC or during hospital stay patient has or had the following: CHF DIAGNOSIS No Discharge Core Measures Meds if any: Prescribed or Continued at Discharge Meds if any: NOT Prescribed or Continued at Discharge Cerebrovascular accident Inclusion Criteria At DC or during hospital stay patient has or had the following: CVA/TIA Diagnosis No Discharge Core Measures Meds if any: Prescribed or Continued at Discharge Meds if any: NOT Prescribed or Continued at Discharge Venous thromboembolism Inclusion Criteria VTE Diagnosis No VTE Type NONE VTE Confirmed by (Test) NONE Discharge Core Measures - Per Current guidelines, there needs to be overlap - treatment for the first 5 days of Warfarin therapy. - If discharged on Warfarin prior to 5 days of - overlap therapy, the patient will need to be - assessed for post discharge needs including - *Post discharge parental anticoagulation - *Warfarin and/or parental anticoagulation education - *Follow up date to check INR post discharge At least 5 days overlap therapy as Inpatient No Meds if any: Prescribed or Continued at Discharge Note: Overlap Therapy is Warfarin and Anticoagulant Meds if any: NOT Prescribed or Continued at Discharge
[2016-10-28 14:19] VITALS: BP 110/60
[2016-10-28 22:15] VITALS: BP 106/60
--- NOTE | 2016-10-29 06:54 | PN- Housestaff ---
TRISHA BORJAS,LE 10/29/16 0654: Subjective Follow-up For: cellulitis Subjective: pt was comfortably laying in bed when seen this morning, he reports 5-6/10 pain, with sore big toe. redness seems improved, swelling persists. he does not want to go home today because he feels that no one will prescribe him percocet once he gets out of the hospital. we prescribed him 20 pills of percocet and will have him follow up with Dr. Abbott. will also dc on augmentin as unasyn seems to be effective for his cellulitis. case management will figure out his ride situation as he drove to the hospital himself and he is supposed to be non weight bearing on the right foot. Review of Systems Constitutional: Reports: see HPI. Objective Last 24 Hrs of Vital Signs/I&O Vital Signs Date Time Temp Pulse Resp B/P B/P Pulse O2 O2 Flow FiO2 Mean Ox Delivery Rate 10/29 0658 98.3 74 20 110/62 94 Room Air 10/28 2215 97.6 68 20 106/60 95 Room Air 10/28 1419 98.0 65 20 110/60 96 Room Air Intake & Output 10/29 1600 10/29 0800 10/29 0000 Intake Total 500 800 Output Total 1020 300 Balance -520 500 Intake, IV 260 Intake, Oral 240 800 Output, Urine 1020 300 Patient 92.986 kg Weight Physical Exam General Appearance: Alert, Oriented X3, Cooperative, No Acute Distress Skin: persistent swelling of medial right ankle. redness improved. Cardiovascular: Regular Rate, Normal S1, Normal S2 Lungs: Clear to Auscultation, Normal Air Movement Abdomen: Normal Bowel Sounds, Soft, No Tenderness Neurological: Normal Speech Current Medications: Current Medications Sig/Rajeev Start time Last Medication Dose Route Stop Time Status Admin Acetaminophen 650 MG Q6P PRN 10/27 1730 AC PO Ampicillin Sodium/ 3,000 MG Q6 10/28 1200 AC 10/29 Sulbactam Sodium IV 1111 Sodium Chloride 100 ML Heparin Sodium 5,000 UNIT Q8 10/27 1723 AC 10/29 (Porcine) SC 0627 Hydrochlorothiazide 25 MG DAILY 10/28 1030 AC 10/29 PO 0924 Lisinopril 20 MG DAILY 10/28 1017 AC 10/29 PO 0926 Morphine Sulfate 2 MG Q4P PRN 10/27 1815 AC 10/28 IV 0153 Oxycodone/ 2 TAB Q4P PRN 10/29 1045 AC 10/29 Acetaminophen PO 1107 Oxycodone/ 2 TAB Q6P PRN 10/28 0930 DC 10/29 Acetaminophen PO 0626 Last 24 Hrs of Lab/Delroy Results Last 24 Hrs of Labs/Mics: Laboratory Tests 10/29/16 0635: Anion Gap 13, Estimated GFR 43 L, BUN/Creatinine Ratio 35.0 H, CBC w Diff NO MAN DIFF REQ, RBC 3.48 L, MCV 86.5, MCH 28.6, RDW 14.2, MPV 7.2 L, Gran % 67.3 , Lymphocytes % 17.0 L, Monocytes % 10.9 H, Eosinophils % 4.4, Basophils % 0.4 , Absolute Granulocytes 8.3 H, Absolute Lymphocytes 2.1, Absolute Monocytes 1.3 H, Absolute Eosinophils 0.5, Absolute Basophils 0, PUBS MCHC 33.0 Assessment/Plan Assessment: 66-year-old male with PMH of HTN, ankle fracture, presented for persistent pain, redness, and swelling s/p trauma. # Right medial ankle cellulitis vs septic arthritis - Right ankle xray: Prominent soft tissue swelling is consistent with clinical history of cellulitis. In addition, narrowing of the tibiotalar joint has progressed since 10/18/2016 which may be an indicator of septic arthritis as questioned clinically. Consider further evaluation with MRI. A joint aspiration may be necessary to exclude a septic joint. * Ortho consulted: recc NSAIDs, ice, elevation, ambulate with boot, consider medrol pack, f/u with Dr. Abbott for ankle fusion surgery. No plan for arthrocentesis * f/u BCX2 * Received unasyn inpatient, discharged on augmentin to complete 7 days of abx. * Pain control with morphine 2q4p, Percocet 2q6p, acetaminophen. Given his CKD, would avoid NSAIDs. * discharged on 20 pills of percocet with walking boot, f/u with Dr. Abbott in 1 week. # HTN * Continue lisinopril/hctz Diet: heart healthy DVT ppx: mech and pharm DNR/DNI Problem List: 1. Cellulitis of right ankle Pain Ratin Pain Location: right ankle Pain Goal: Pain 7 or less Pain Plan: percocet Tomorrow's Labs & Rationales: none DVT/Prophylaxis: mechanical, pharmacological Consulting Request: Consulting Specialty: Orthopedics Consulting Physician: Dr. Abbott Reason for Consult: arthrocentesis PADDY SCHWAB 10/29/16 1118: Attending MD Review Statement Attending Statement Attending MD Statement: examined this patient, discuss w/resident/PA/RADIATOR REPAIRER, agreed w/resident/PA/RADIATOR REPAIRER, discussed with family, reviewed EMR data (avail), discussed with nursing, discussed with case mgmt, reviewed images, amended to note Attending Assessment/Plan: 66-year-old male with history significant for hypertension, CKD stage III, recent ankle injury now getting admitted with cellulitis of the right ankle/ right lower extremity, need to rule out septic joint. Patient admitted to medicine floor. xray ankle reviewed by orthopedics, doubt septic arthritis, no planned arthrocentesis as per ortho. c/w abx, f/u cultures. pain control. DVT prophylaxis: Heparin subcutaneous, conuslt case management, anticipate d/c soon.
[2016-10-29 06:58] VITALS: BP 110/62
[2016-10-29 07:40] LABS: ABSOLUTE BASOPHIL COUNT 0 /CUMM (0.0-0.2); ABSOLUTE EOSINOPHIL COUNT 0.5 /CUMM (0.0-0.7); ABSOLUTE GRANULOCYTE CT 8.3 /CUMM (1.4-6.5); ABSOLUTE LYMPH COUNT 2.1 /CUMM (1.2-3.4); ABSOLUTE MONOCYTE COUNT 1.3 /CUMM (0.10-0.60); BASOPHIL % 0.4 % (0.0-2.0); EOSINOPHIL % 4.4 % (0-5); GRANULOCYTE % 67.3 % (42.2-75.2); HEMATOCRIT 30.1 % (42-52); MEAN CORPUSCULAR HGB 28.6 PG (27.0-31.0); MEAN CORPUSCULAR VOLUME 86.5 FL (80.0-94.0); MEAN PLATELET VOLUME 7.2 FL (7.4-10.4); PLATELET COUNT 588 /CUMM (130-400); RBC DISTRIBUTION WIDTH 14.2 % (11.5-14.5); RED BLOOD CELL CT 3.48 /CUMM (4.70-6.10); WHITE BLOOD CELL COUNT 12.3 /CUMM (4.8-10.8)
[2016-10-29] MEDS ORDERED: PERCOCET 5-3251 EACH PO (09:23)
--- NOTE | 2016-10-29 10:32 | NUR ---
NURSING NOTE: DISCHARGE ORDER PLACED BY . PT WITH R ANKLE SWELLING. NWB TO RLE; HAS OWN CRUTCHES. 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
[2016-10-29] MEDS ORDERED: AUGMENTIN 875-1 EACH PO (10:55)
--- NOTE | 2016-10-29 10:56 | Discharge Summary ---
Visit Information Visit Dates Admission Date: 10/27/16 Discharge Date: 10/29/16 Hospital Course Course Attending Physician: Dr. España Primary Care Physician: ROSALIA HE APRN Consulting Request: Consulting Specialty: Orthopedics Consulting Physician: Dr. Abbott Reason for Consult: arthrocentesis Hospital Course: 66-year-old male with PMH of HTN, ankle fracture, presented for persistent pain, redness, and swelling of the medial right ankle s/p trauma. He reported that he slipped at work on October 17, and presented to the ER on October 18 around 1030 pm, with chief complaint of pain. No fracture was found at imaging at that time. He denies getting abx since then. He also was prescribed 15 pills of percocet which he filled on 10/19/16. Patient was given a boot and crutches and told to stay nonweightbearing to follow-up with orthopedic doctor. Patient ran out of his pain medication. He has tried aleve, excedrin, and ibuprofen, without significant relief in pain. He has seen his PCP, and orthopedic doctor, Dr. Juárez, at [facility], and he was asked to present to the ED for further workup. His main concern was pain. He reports that his PCP refused to refill his percocet. Due to concerns for septic arthritis, we consulted orthopedic surgery, Dr. Abbott. He does not feel that patient has septic arthritis despite having ESR of 130 and repeat right ankle xray reading of possible septic arthritis. He feels strongly that he has poorly healed old fracture that is exacerbating his recent trauma, and no arthrocentesis was indicated. Recommended walking boot, non weightbearing on the right, follow up as outpatient for ankle fusion in the future. The pain was relatively controlled on percocet. Pt was dicharged on 20 pills of percocet. Pt was reluctant to be discharged because he is afraid that he will not be getting his pain meds refilled. Pt was told to follow up with Dr. Abbott within 1 week. There was improvement noted with unasyn, so patient was discharged on augmentin to complete a total course of 7 days. Allergies: Coded Allergies: No Known Allergies (10/18/16) Pertinent Lab Results: Ankle xray: Prominent soft tissue swelling is consistent with clinical history of cellulitis. In addition, narrowing of the tibiotalar joint has progressed since 10/18/2016 which may be an indicator of septic arthritis as questioned clinically. Consider further evaluation with MRI. A joint aspiration may be necessary to exclude a septic joint. Disposition Summary Disposition Principal Diagnosis: Cellulitis of medial right ankle Additional Diagnosis: Old right ankle fracture Discharge Disposition: home or self care Discharge Instructions General Discharge Information Code Status: Do Not Resucitate/Intubat Patient's Diet: Heart healthy Patient's Activity: Non weighbearing on the right Walk with crutches and walking boot Follow-Up Instructions/Appts: General Discharge Information You were seen/treated for: reddness and swelling of the right foot Special Instructions: please do not put any weight on the right foot. please f/u with orthopedics in1 week Medications at Discharge Discharge Medications: Stop taking the following medications: Sulfamethoxazole/Trimethoprim (Bactrim Ds Tablet) 800 MG-160 MG TABLET ORAL TWICE DAILY Qty = 14 Amoxicillin (Amoxicillin) 875 MG TABLET ORAL TWICE DAILY Qty = 14 Oxycodone HCl/Acetaminophen (Percocet 5-325 MG Tablet) 5 MG-325 MG TABLET ORAL TWICE DAILY Qty = 15 Continue taking these medications: Lisinopril/Hydrochlorothiazide (Lisinopril-Hctz 20-25 MG Tab) 20 MG-25 MG TABLET 1 Tablet ORAL DAILY Qty = 90 Comments: Last Taken:10/29/16 Time: 0930AM Amoxicillin/Potassium Clav (Augmentin 875-125 Tablet) 875 MG-125 MG TABLET 1 Tablet ORAL TWICE DAILY Days = 5 Comments: NOT GIVEN IN HOSPITAL; IV ANTIBX GIVEN This prescription has been renewed Start taking the following new medications: Oxycodone HCl/Acetaminophen (Percocet 5-325 MG Tablet) 5 MG-325 MG TABLET 1 Tablet ORAL EVERY 8 HOURS NEEDED as needed for severe pain Qty = 20 No Refills Instructions: Please follow up with PCP for refill Comments: Last Taken: 10/29/16 Time: 1115AM (2 TABS GIVEN) Amoxicillin/Potassium Clav (Augmentin 875-125 Tablet) 875 MG-125 MG TABLET 1 Tablet ORAL TWICE DAILY Qty = 14 No Refills Copies To: SHAMEKA HE APRN, MD,AVELINA Campos MD Review Statement Documenting Attending: PADDY ESPAÑA MD
[2016-10-29 14:34] VITALS: BP 126/62
--- NOTE | 2016-10-30 01:32 | NUR ---
1613 PATIENT DISCHARGED. ALERT AND ORIENTED X 3. VITAL SIGNS STABLE. DENIES CHEST PAIN. + PULSES ON ROOM AIR. NO DISTRESS NOTED. IV REMOVED VERBALIZED UNDERSTANDING OF DISCHARGE INSTRUCTIONS.
== END 2016-10-29 16:13 | disposition home health service (06) | DRG 603 ==
LOC: ERH 11:45 → 2NB 16:28 → ERHI 16:28 → 2NB 16:28 → ENRESERV 18:51 → 2NB 21:29 → ENPENDDIS 10-29 09:31 → 2NB 10-29 16:13
PROVIDERS: Internal Medicine Nephrology; Physician Assistant Medical; Radiology Diagnostic Radiology; ADMIT Hospitalist
DX: L03.115 Cellulitis of right lower limb (principal); N18.3 Chronic kidney disease, stage 3 (moderate); I12.9 Hypertensive chronic kidney disease with stage 1 through stage 4 chronic kidney disease, or unspecified chronic kidney disease
CPT/HCPCS: 2NBP; 73610-RT; 82436; 87040; 96374; 96375; 97116-GO; 97161-GP; 97530-GO; J0696; J1644; J3370; J7040

== ENCOUNTER 2016-11-06 14:24 | Observation (INO) | payer OTHER, MEDICARE ==
[~2016-11-06] VITALS: Ht 180.3 cm; Wt 93.0 kg
[~2016-11-06 14:24] MED LIST changes: +AMOXICILLIN875 M1 PO; +AUGMENTIN 875-1 EACH PO; +BACTRIM DS TAB1 EACH PO; +LISINOPRIL-HCT1 EAC1 PO
--- NOTE | 2016-11-06 14:45 | NUR ---
PT STATES HE HAS NOT HAD SURGERY. HE WAS ON THE WAY TO THE DOCTOR TO FIND OUT WHAT IS WRONG WITH HIS FOOT. PT STATES HE FEELS TIRED AND WEAK. WAITING FOR MD MADDOX.
--- NOTE | 2016-11-06 14:45 | NUR ---
IV ESTABLISHED AND LABS DRAWN AND SENT (BLUE, SST X2, LAV, HERNANDEZ, PINK)
--- NOTE | 2016-11-06 14:45 | NUR ---
PT PAYTON AFTER HE BECAME WEAK WITH HIS TRANSPORTED TO PHYSIAL THERAPY. PT WAS ATTEMPTING TO GET IN THE CAR WHEN HE C/O WEAKNESS. BLOCK SEALER CALLED FOR EMS. PT STATES HE FELT WEAK AFTER GOING DOWN THE STAIRS
[2016-11-06 14:46] LABS: ABSOLUTE BASOPHIL COUNT 0.1 /CUMM (0.0-0.2); ABSOLUTE EOSINOPHIL COUNT 0.3 /CUMM (0.0-0.7); ABSOLUTE GRANULOCYTE CT 9.9 /CUMM (1.4-6.5); ABSOLUTE LYMPH COUNT 1.8 /CUMM (1.2-3.4); ABSOLUTE MONOCYTE COUNT 0.9 /CUMM (0.10-0.60); BASOPHIL % 0.5 % (0.0-2.0); EOSINOPHIL % 2.3 % (0-5); GRANULOCYTE % 76.3 % (42.2-75.2); MEAN CORPUSCULAR HGB 28.3 PG (27.0-31.0); MEAN CORPUSCULAR VOLUME 85.7 FL (80.0-94.0); MEAN PLATELET VOLUME 7.3 FL (7.4-10.4); PLATELET COUNT 830 /CUMM (130-400); RBC DISTRIBUTION WIDTH 13.8 % (11.5-14.5); RED BLOOD CELL CT 3.85 /CUMM (4.70-6.10)
--- NOTE | 2016-11-06 15:31 | NUR ---
ORTHOS DONE AND PROVIDER AWARE. PT'S NS LITER BOLUS INFUSING NOW.
--- NOTE | 2016-11-06 16:04 | NUR ---
FLUIDS COMPLETE. REMAINS STABLE AND ASYMPTOMATIC AT THIS TIME. BP 136/62 AND SINUS RATE 60'S WITHOUT ECTOPY. OFFERS NO COMPLAINTS AT THIS TIME
--- NOTE | 2016-11-06 17:00 | ED SYNCOPE COMPLAINT ---
History of Present Illness General Chief Complaint: Syncope and Near-Syncope Stated Complaint: BIBA, NEAR SYNCOPE Source: patient Exam Limitations: no limitations Vital Signs & Intake/Output Vital Signs & Intake/Output ED Intake and Output 11/09 0000 11/08 1200 Intake Total 200 Output Total 400 Balance -200 Intake, Oral 200 Output, Urine 400 Allergies Coded Allergies: No Known Allergies (10/18/16) Triage Note: PT BIBA AFTER HE BECAME WEAK WITH HIS TRANSPORTED TO PHYSIAL THERAPY. PT WAS ATTEMPTING TO GET IN THE CAR WHEN HE C/O WEAKNESS. CRYSTALIZER TENDER CALLED FOR EMS. PT STATES HE FELT WEAK AFTER GOING DOWN THE STAIRS Triage Nurses Notes Reviewed? yes Timing: single episode today Precipitating Factors: blurred vision HPI: 66-year-old male comes into emergency room for further evaluation of feeling lightheaded and dizzy like he is going to pass out. Patient was recently seen here and admitted for cellulitis to his right ankle. He was on his way to see orthopedic doctor as an outpatient today. Denies any vomiting. Denies any fever or chills. Denies any chest pain shortness of breath. Nothing seems to make symptoms better or worse. Denies any other associated symptoms. (JAXON MARY,FCO) Reconcile Medications Lisinopril/Hydrochlorothiazide (Lisinopril-Hctz 20-25 MG Tab) 20 MG-25 MG TABLET 1 TAB PO DAILY HEART (Reported) Oxycodone HCl/Acetaminophen (Percocet 5-325 MG Tablet) 5 MG-325 MG TABLET 1 TAB PO Q8P PRN severe pain Please follow up with PCP for refill (AMANDO BORJAS,MICHAEL Douglas) Past History Travel History Traveled to [place] past 21 day No Medical History Any Pertinent Medical History? see below for history Neurological: NONE EENT: NONE Cardiovascular: hypertension Respiratory: NONE Gastrointestinal: NONE Hepatic: NONE Renal: NONE Musculoskeletal: R LEG FX R ANKLE FX Psychiatric: NONE Endocrine: NONE Blood Disorders: NONE Cancer(s): NONE HAND HEEL SEAT FITTER/Reproductive: NONE History of MRSA: No History of VRE: No History of CDIFF: No Surgical History Surgical History: non-contributory Psychosocial History Who do you live with Patient/Self Services at Home None What is your primary language Azeri Tobacco Use: Quit >30 days ago ETOH Use: occasional use Illicit Drug Use: denies illicit drug use Family History Family History, If Any: Relation not specified for: *No pertinent family history Hx Contributory? No (FCO [place]) Review of Systems Review of Systems Constitutional: Reports: no symptoms. EENTM: Reports: no symptoms. Respiratory: Reports: no symptoms. Cardiovascular: Reports: see HPI. GI: Reports: no symptoms. Genitourinary: Reports: no symptoms. Musculoskeletal: Reports: no symptoms. Skin: Reports: no symptoms. Neurological/Psychological: Reports: no symptoms. All Other Systems: Reviewed and Negative (FCO [place]) Physical Exam Physical Exam General Appearance: well developed/nourished, alert, awake Head: atraumatic, normal appearance Eyes: Bilateral: normal appearance, EOMI. Ears, Nose, Throat: normal pharynx, hearing grossly normal Neck: normal inspection Respiratory: normal breath sounds, no respiratory distress Cardiovascular: regular rate/rhythm Gastrointestinal: soft, non-tender Back: normal inspection Extremities: normal inspection, normal range of motion Psychiatric: awake, alert, oriented x 3 Cranial Nerves: normal hearing, normal speech, PERRL Coordination/Gait: normal gait Motor/Sensory: no motor/sensory deficits Skin: intact, normal color Core Measures ACS in differential dx? No CVA/TIA Diagnosis: No Severe Sepsis Present: No Septic Shock Present: No (FCO [place]) Progress Differential Diagnosis: AMI, aortic dissection, aortic valve, drug induced syncope, hyperventilation, orthostatic syncope, other valvular disease, pacemaker malfunction, pericardial tamponade, pulmonary embolus, seizure, sick sinus syndrome, subarachnoid hem., TIA/CVA, vasodepressor syncope, ventricular tach/fib Plan of Care: Orders Procedure Date/time Status Heart Healthy Diet 11/[address] in observation 11/06 1706 Active Telemetry/Care Advocate 11/06 1435 Active TROPONIN LEVEL 11/06 1434 Complete COMPREHENSIVE METABOLIC PANEL 11/06 1434 Complete CBC WITHOUT DIFFERENTIAL 11/06 1434 Complete EKG 11/06 1425 Active Laboratory Tests 11/06/16 1435: Anion Gap 17 H, Estimated GFR 29 L, BUN/Creatinine Ratio 23.5, Glucose 130 H, Calcium 10.7 H, Total Bilirubin 0.6, AST 22, ALT 50, Alkaline Phosphatase 104, Troponin I < 0.01, Total Protein 7.5, Albumin 3.6, Globulin 3.9, Albumin/ Globulin Ratio 0.9 L, CBC w Diff NO MAN DIFF REQ, RBC 3.85 L, MCV 85.7, MCH 28.3, RDW 13.8, MPV 7.3 L, Gran % 76.3 H, Lymphocytes % 14.1 L, Monocytes % 6.8, Eosinophils % 2.3, Basophils % 0.5, Absolute Granulocytes 9.9 H, Absolute Lymphocytes 1.8, Absolute Monocytes 0.9 H, Absolute Eosinophils 0.3, Absolute Basophils 0.1, PUBS MCHC 33.0 Initial ED EKG: normal intervals, normal p-waves, normal QRS complex, normal sinus rhythm, rate (68), nonspecific ST T wave chg (FCO [place]) Departure Departure Disposition: STILL A PATIENT Condition: Stable Clinical Impression Primary Impression: Acute kidney injury Secondary Impressions: Near syncope Referrals: ROSALIA HE APRN (PCP/Family) Departure Forms: Customer Survey General Discharge Information Observation Note Spoke With: STEPHANIE RICHMOND MD Physician Advisor Notified: BRENDEN BORJAS,MELVIN [facility] [address] Patient In: Non-ED OBS Care Area Rationale for Observation: My rational for observation is as follows . Patient will require cardiac telemetry. IV hydration. Repeat labs. Consider orthopedic consultation. Consider nephrology consultation. (FCO [place]) Departure Prescriptions: Current Visit Scripts Oxycodone HCl/Acetaminophen (Percocet 5-325 MG Tablet) 1 TAB PO Q8P PRN severe pain #15 TAB Please follow up with PCP for refill PA/GUIDE DELEGATE Co-Sign Statement Statement: ED Attending supervision documentation- [] I saw and evaluated the patient. I have also reviewed all the pertinent lab results and diagnostic results. I agree with the findings and the plan of care as documented in the PA's/GUIDE DELEGATE's documentation. [] I have reviewed the ED Record and agree with the PA's/GUIDE DELEGATE's documentation. [] Additions or exceptions (if any) to the PAs/GUIDE DELEGATE's note and plan are summarized below: [] (AMANDO BORJAS,MICHAEL Douglas)
--- NOTE | 2016-11-06 18:27 | NUR ---
FOOD TRAY ORDERED
--- NOTE | 2016-11-06 19:42 | NUR ---
HOUSE STAFF IN TO EVAL
--- NOTE | 2016-11-06 19:51 | NUR ---
PT AWAITING INPTOBS ADMISSION. PT DENIES CP,SOB,DIZZINESS AT THIS TIME. OFFERS NO COMPLAINTS. VSS. WILL CTM.
--- NOTE | 2016-11-06 20:17 | NUR ---
PT TO ROOM 185 BED 1
--- NOTE | 2016-11-06 20:38 | NUR ---
REPORT GIVEN TO CRUZ DALE
[2016-11-06 21:00] VITALS: BP 116/58
--- NOTE | 2016-11-06 21:00 | NUR ---
REPORT RECIEVED FROM RAE ARROYO IN ED. PT ARRIVE TO FLOOR VIA DISTRIBUTION. ON ROOM AIR. DENIES PAIN AT THIS TIME. R ANKLE SLIGHTLY RED, BRUISED, AND EDEMATOUS, OUTLINED IN MARKER FROM PREVIOUS ED VISIT ON 10/27, REDNESS DOES NOT EXTEND OUTSIDE MARKER BORDER. PT IN NO APPARENT DISTRESS AT THIS TIME. REFUSES ALPS. ORIENTED TO ROOM AND CALL BUTTON. WILL CONTINUE TO MONITOR. 23 HOUR OBS.
--- NOTE | 2016-11-06 21:27 | History & Physical ---
NOELRACHIDJOSEFINACELE 11/06/162124: General Information and HPI MD Statement: I have seen and personally examined ANDREW ALLEN and documented this H&P. The patient is a 66 year old M who presented with a patient stated chief complaint of [lightheadeness, near syncope]. Source of Information: patient, old records Exam Limitations: no limitations History of Present Illness: This is a 66-year-old male with past medical history of hypertension, chronic kidney disease, intermittent smoker, nonalcoholic, no illicit drug abuse, previously seen 10/18/16 after having a mechanical fall and tripping over the right ankle, at which point right ankle did not show any acute fracture, seen again on 10/27/2016 with chief complain of right ankle swelling and severe pain with limited mobility of right ankle joint, seen by orthopedic Dr. Abbott, found to have right ankle end-stage arthritis, with severe inflammation and associated cellulitis ( r/o septic arthritis), discharged on 10/29/2016 after being treated for associated cellulitis with IV Unasyn and discharged on Augmentin for a total of 7 days with plans to follow up with orthopedic doctor as outpatient after being prescribed walking boot, non-weight bearing until further plan for ankle fusion as outpatient comes in back again today 11/06/2016 with chief complain of lightheadedness and near syncope around 1 PM on the day of admission. Apparently the patient's right ankle swelling had improved, he continued taking Percocet for pain and continued to take by mouth Augmentin, his swelling and redness reduced and he was going for his orthopedic appointment with Dr. Fu today when he got out of his house and walked into his car while using the crutches. He drove up to [place], however he continued to have severe pain in the right ankle. It was difficult for him to get out of the car in order to get in to [employer] [facility] therefore the concrete mixer truck driver of [employer] was helping him out.She noticed that the patient was very lightheaded and was very tired, and therefore she called the EMS. Patient said that he was very tired after walking out of the house into the car and felt lightheaded when he was trying to get outside from the car into [place] [facility]. He denied any chest pain, palpitations, fall, seizure like activity, loss of bowel or bladder control, weakness, recent illness, fever. He did not have any actual fall of loss of consciousness however he felt lightheaded while sitting in the car and therefore EMS CALLED. Upon arrival of the EMS he was found to be hypotensive and therefore was sent in to [facility]. At the emergency department the patient is in mild distress because of the right ankle pain however he does not feel lightheaded or dizzy. The only thing bothering him right now is his right ankle pain and he cannot bear any weight, no mobility at the right ankle, can wiggle his right toes fine. I saw the patient and admitted him on last visit 1 week ago, the redness and the swelling in the right ankle is definitely much lesser compared to 1 week ago however his significant reduction in mobility is the same. He says that he has been drinking water normally, hasn't had much of an appetite, Percocet is controlling his pain very well. He denied any urinary complaints or any diarrhea or constipation. Allergies/Medications Allergies: Coded Allergies: No Known Allergies (10/18/16) Home Med list Lisinopril/Hydrochlorothiazide (Lisinopril-Hctz 20-25 MG Tab) 20 MG-25 MG TABLET 1 TAB PO DAILY HEART (Reported) Oxycodone HCl/Acetaminophen (Percocet 5-325 MG Tablet) 5 MG-325 MG TABLET 1 TAB PO Q8P PRN severe pain Please follow up with PCP for refill Compliance With Home Meds: FAIR Past History Travel History Traveled to [place] past 21 day No Medical History Neurological: NONE EENT: NONE Cardiovascular: hypertension Respiratory: NONE Gastrointestinal: NONE Hepatic: NONE Renal: NONE Musculoskeletal: R LEG FX R ANKLE FX Psychiatric: NONE Endocrine: NONE Blood Disorders: NONE Cancer(s): NONE 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 Home Services at Home: None Smoking Status: Light Tobacco Smoker ETOH Use: occasional use Illicit Drug Use: denies illicit drug use Functional Ability ADLs Independent: dressing, eating, toileting, bathing. Ambulation: independent IADLs Independent: shopping, housework, finances, food prep, telephone, transportation , medication admin. Review of Systems Review of Systems Constitutional: Denies: chills, diaphoresis, fever, malaise, weakness, unexplained weight loss. EENTM: Denies: blurred vision, double vision, visual changes, eye pain, eye drainage. Cardiovascular: Denies: chest pain, edema, orthopena, palpitations, peripheral edema. Respiratory: Denies: cough, hemoptysis, orthopnea, short of breath, sputum production, stridor, wheezing. GI: Denies: abdominal pain, bloating, constipation, diarrhea, distention. Genitourinary: Denies: discharge, dysuria, frequency, hematuria, hesitation. Musculoskeletal: Reports: joint pain, joint swelling, muscle pain. Denies: back pain, gout, muscle stiffness, neck pain. Skin: Reports: no symptoms. Neurological/Psychological: Reports: no symptoms. Hematologic/Endocrine: Reports: no symptoms. Immunologic/Allergic: Reports: no symptoms. All Other Systems: Reviewed and Negative Exam & Diagnostic Data Last 24 Hrs of Vital Signs/I&O Vital Signs Date Time Temp Pulse Resp B/P B/P Pulse O2 O2 Flow FiO2 Mean Ox Delivery Rate 11/06 1950 96.4 75 18 111/57 96 Room Air 11/06 1803 96.0 74 12 130/73 98 Room Air 11/06 1604 97.0 68 16 136/62 96 Room Air 11/06 1505 96.7 11/06 1428 74 18 114/57 97 Room Air Intake & Output 11/06 1600 11/06 0800 11/06 0000 Intake Total 400 Output Total Balance 400 Intake, IV 400 Patient 92.986 kg Weight Weight Reported by Patient Measurement Method Physical Exam General Appearance Alert, Oriented X3, Cooperative, No Acute Distress Skin mild swelling around right ankle, no redness Skin Temp/Moisture Exam: Warm/Dry Sepsis Skin Exam (color): Normal for Ethnicity HEENT Atraumatic, PERRLA, EOMI Neck Supple, No JVD Lymphatic no lad Cardiovascular Regular Rate, Normal S1, Normal S2, No Murmurs Lungs Clear to Auscultation, Normal Air Movement Abdomen Normal Bowel Sounds, Soft, No Tenderness Neurological Normal Speech, Sensation Intact, Cranial Nerves 3-12 NL, Reflexes 2 + Extremities No Clubbing, No Cyanosis, right ankle no movement at ankle joint, can wiggle toes, sensation intact, pulses palpable. Vascular Normal Pulses Last 24 Hrs of Labs/Delroy: Laboratory Tests 11/06/16 1435: Anion Gap 17 H, Estimated GFR 29 L, BUN/Creatinine Ratio 23.5, Glucose 130 H, Calcium 10.7 H, Total Bilirubin 0.6, AST 22, ALT 50, Alkaline Phosphatase 104, Troponin I < 0.01, Total Protein 7.5, Albumin 3.6, Globulin 3.9, Albumin/ Globulin Ratio 0.9 L, CBC w Diff NO MAN DIFF REQ, RBC 3.85 L, MCV 85.7, MCH 28.3, RDW 13.8, MPV 7.3 L, Gran % 76.3 H, Lymphocytes % 14.1 L, Monocytes % 6.8, Eosinophils % 2.3, Basophils % 0.5, Absolute Granulocytes 9.9 H, Absolute Lymphocytes 1.8, Absolute Monocytes 0.9 H, Absolute Eosinophils 0.3, Absolute Basophils 0.1, PUBS MCHC 33.0 Diagnostic Data EKG Results normal Sinus rhythm, rate of 68, ND of 156, QTC of 409, incomplete right bundle branch block present on the old EKG, no acute ST-T wave changes. Assessment/Plan Assessment: In summary this is a 66-year-old male with past medical history of hypertension, chronic kidney disease, intermittent smoker, nonalcoholic, no illicit drug abuse previously seen 10/18/2016 after having a mechanical fall and pain over the right ankle with no acute ankle fracture seen again 10/27/2016 with right ankle swelling and severe pain my evaluated by orthopedic Dr. Abbott found to have endstage right ankle arthritis, discharge on IV Unasyn for associated cellulitis to follow up as outpatient for ankle fusion surgery comes back today with chief complain of lightheadedness and near syncope in the afternoon on the day of admission while he was going to see orthopedic doctor alessio. Vitals on admission : temperature of 97.0, pulse of 68 up to 75, respiration of 16-18, blood pressure of 130/73, he was 98% saturating on room air. Na 138, potassium 4.9, BUN and creatinine 54/2.3 (baseline creatinine 1.8), glucose of 130. Ca 10.7, troponin < 0.01. We Will observe that patient in tele for 24 hours. Problem #1 Dizziness/lightheadedness/near syncope. * The dizziness/lightheadedness most likely was secondary to weakness and tiredness after walking on the foot did extremely painful, he denied any chest pain, shortness of breath, loss of consciousness, any seizure like activity or any weakness. * Continue to trend troponins and EKG to rule out ACS. * Continue telemetry monitoring. * Continue IV hydration. * We'll hydrate with 1 litre of normal saline for now. * Continue to monitor intakes and outputs. * Continue to monitor vital signs. Problem #2 End-stage arthritis of the right ankle. * Patient was supposed to follow up with Dr. Fu/Dr. Abbott as outpatient. * On previous admission he was asked to follow up as outpatient for further evaluation of end-stage ankle arthritis and possible ankle fusion surgery. * We will get ortho on board as the patient is admitted inpatient now. * He was prescribed IV Augmentin for cellulitis along with the worsening ankle arthritis. * He has 1-1/2 days of total of seven-day course of Augmentin still pending. * Will give 3 more doses and complete entire course. * His ankle swelling has improved much. * Continue nonweightbearing on the ankle. * PT/OT consult. #3 history of hypertension. * Continue lisinopril daily from am , will hold for now. * Continue to monitor blood pressure closely. #4 Right ankle pain. * 2/2 to end stage arthritis. * Continue oxycodone every 12 by mouth. * If pain severe can give extra Percocet. * Tylenol for mild to moderate pain. * Patient does complain of excruciating pain in the right ankle, continue to monitor. #5 Acute on chronic renal failure. * Creatinine has bumped up to 2.3 from baseline of 1.8.,EGFR reduced, * Will get ultrasound of the kidney to rule out obstruction. * Patient did have baseline renal dysfunction since he was young, was worked up before did not find a cause. * However as his creatinine is worsening, we will get a UA. * Continue to follow urine cultures, no urinary symptoms. * Nephrology consult in a.m. * Avoid nephrotoxic drugs. * Bun/protein creatinine ratio,urine lytes. * Please hold lisinopril and HCTZ. #6 Thrombocytosis * Most likely 2/2 to inflammation * will check serum iron, tibc and ferritin * consider heme consult if needed Patient is DNR/DNI. DVT prophylaxis with heparin Heart healthy diet As Ranked By This Provider Problem List: 1. Acute kidney injury 2. Arthritis of ankle, right 3. Near syncope 4. Cellulitis of right ankle Core Measures/Miscellaneous Acute Coronary Syndrome ACS Diagnosis: No Cerebrovascular Accident CVA/TIA Diagnosis: No Congestive Heart Failure CHF Diagnosis: No Venous Thromboembolism VTE Risk Factors: Age > 40 [facility] prophylaxis d/t: No contraindications No VTE Pharm Prophylaxis d/t: No contraindications VTE Diagnosis: No VTE Type: NONE VTE Confirmed by (Test): NONE Severe Sepsis Severe Sepsis Present: No Septic Shock Septic Shock Present: No Miscellaneous Documentation Attending Case Discussed With: THUY RICHMOND [facility] Primary Care Physician: ROSALIA HE APRN Patient sees these Specialists Dr Fu Level of Patient Care: Telemetry Resident Review Statement Resident Statement: admitted by resident THUY RICHMOND MD 11/07/16 0403: Attending MD Review Statement Attending Statement Attending MD Statement: examined this patient, discuss w/resident/PA/BRANCH GENERAL MANAGER, agreed w/resident/PA/BRANCH GENERAL MANAGER Attending Assessment/Plan: 66 yo M with h/o HTN, CKD stage 3B, previous untreated right medial malleolar fracture with high fibular fracture followed by a syndesmotic injury with an unstable ankle, ankle shift laterally leading to nonunion of medial malleolus and end stage ankle arthritis. He was admitted to [facility] (October 27) for right ankle cellulitis after trauma at work. He was treated for cellulitis with Augmentin, Ortho consult was sought for concerns of septic arthritis and ?osteo given ESR > 130, however Dr. Abbott was of the opinion that this is a flare up of his arthritis and there was no concern for septic arthritis or osteo. Patient may require ankle fusion per Ortho. He uses a walking boot and crutches. Today, patient had an appointment with Dr. Fu, however, was very tired and lightheaded prompting the ER visit. Upon EMS arrival, he was noted to have a low BP (?). He denies headache, chest pain, palpitations, syncope, fall or head strike. Appetite good. No diarrhea or urinary s/s. VSS. Exam: right ankle deformed, no signs of inflammation. Pulses well felt. Labs: WBC 13, H/H 10.9/33, Plt 830, ESR > 130 (10/28), AG 17, BUN 54, creat 2.3 (Baseline 1.6 1.8), glucose 130, Ca 10.7, trop neg. EKG: SR, RBBB. Orthostats negative. 1. Lightheadedness in the setting of dehydration and pain, probable near syncope. 23 Obs on Tele, monitor for arrhythmias, serial EKG and troponin, no need for echo or cardio consult. Gentle IV hydration, recehck orthostats. 2. Acute on CKD stage 3B. Patient reports he was evaluated by nephrology at [facility] many years ago. 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 Creatinine increased from 1.6 to 2.3 Will hydrate and recheck renal functions. Check UA, urine protein-creatinine ratio, urine lytes, renal ultrasound and nephro consult. Hold lisinopril and HCTZ. 3. Thrombocytosis of unclear etiology. No evidence of bleeding or hemolysis. Check for iron deficiency, B12, check CRP ?2/2 chronic underlying infection. Essential thrombocytosis could cause vasomotor symptoms. Consider Hematology consult. 4. Chronic right ankle arthritis in the setting of previous injury and nonunion. Continue pain management, non weight bearing, complete Augmentin course, Ortho consult, eventual plan is ankle fusion surgery. Dr. Abbott did not think patient has underlying septic arthritis or osteomyelitis as assessed during previous admission. DVT ppx Hep SC. DNR/I.
[2016-11-07 00:59] VITALS: BP 104/56
[2016-11-07 05:47] LABS: ABSOLUTE BASOPHIL COUNT 0 /CUMM (0.0-0.2); ABSOLUTE EOSINOPHIL COUNT 0.4 /CUMM (0.0-0.7); ABSOLUTE GRANULOCYTE CT 7.9 /CUMM (1.4-6.5); ABSOLUTE LYMPH COUNT 2.6 /CUMM (1.2-3.4); ABSOLUTE MONOCYTE COUNT 0.8 /CUMM (0.10-0.60); BASOPHIL % 0.4 % (0.0-2.0); EOSINOPHIL % 3.5 % (0-5); GRANULOCYTE % 67.3 % (42.2-75.2); HEMATOCRIT 31.1 % (42-52); MEAN CORPUSCULAR HGB 28.2 PG (27.0-31.0); MEAN CORPUSCULAR HGB CONC 32.8 G/DL (33.0-37.0); MEAN CORPUSCULAR VOLUME 86.2 FL (80.0-94.0); MEAN PLATELET VOLUME 7.3 FL (7.4-10.4); RBC DISTRIBUTION WIDTH 14.2 % (11.5-14.5); RED BLOOD CELL CT 3.61 /CUMM (4.70-6.10); WHITE BLOOD CELL COUNT 11.7 /CUMM (4.8-10.8)
[2016-11-07 06:16] LABS: PLATELET COUNT 727 /CUMM (130-400)
[2016-11-07 08:37] VITALS: BP 118/66
--- NOTE | 2016-11-07 09:58 | PN- Housestaff ---
Subjective Follow-up For: SETH dizziness Subjective: Pt is seen and examined at bedside. He still endorses pain on his affected ankle , but reports that the medication seem to have relieved his pain. Denies any sob ,cp/palpitaiton,fever/chills,nausea/vomiting, abdominal pain or dysuria. No acute o/n event reported by nursing staff. Review of Systems Constitutional: Reports: see HPI. Objective Last 24 Hrs of Vital Signs/I&O Vital Signs Date Time Temp Pulse Resp B/P B/P Pulse O2 O2 Flow FiO2 Mean Ox Delivery Rate 11/07 0837 98.8 72 20 118/66 96 11/07 0059 98.0 76 20 104/56 94 Room Air 11/06 2100 Room Air 11/06 2100 98.3 78 16 116/58 96 Room Air 11/06 1950 96.4 75 18 111/57 96 Room Air Intake & Output 11/07 1600 11/07 0800 11/07 0000 Intake Total 1090 800 580 Output Total 600 Balance 1090 200 580 Intake, IV 450 600 100 Intake, Oral 640 200 480 Number 1 Bowel Movements Output, Urine 600 Patient 92.986 kg Weight Physical Exam General Appearance: Alert, Oriented X3, Cooperative Skin: mild erythema on right middle malleous area. Cardiovascular: Regular Rate, Normal S1, Normal S2 Lungs: Clear to Auscultation, Normal Air Movement Abdomen: Normal Bowel Sounds, Soft, No Tenderness Neurological: Normal Speech, Normal Tone, Sensation Intact Extremities: mildly erythematous swollwen medial malleoulus of right ankle. Tender to palaption, not warm to touch. decreased ROM DUE TO PAIN Vascular: Normal Pulses, Pulses Symmetrical Assessment/Plan Assessment: This is a 66 yo gentleman with a PMHX of CKD, HTN, chronic malleola/tibial fracture not reduced by surgery,chronic ankle arthritis, and a recent hospitalization for cellulitis treated with 10 day Augmentin presents for evaluation of dizziness/near syncope. Pt is also noted to have acute rise of creatine from his baseline. He is placed on 23 hr obs for cardiac montoring and evaluation of his presyncope. Impression and Plan Presyncope/dizziness. Dizziness in a patient without any chest pain/palpitation, exertional triggers, no heart valvular/conduction abnormalities or any cardiac disease is very likely to be of cardiac etiology. The unremarkable trops/ekg and no acute telemtry events further makes cardiac etiology to be less likely. As a diagnosis of exclusion, it is possible patient had a vasovagal event, he does present with clinical features suggestive of hypotension. Will await echo results and if unremarkable, then will discharge patient. #Acute on Chronic Kidney injury Acute elevation of creatine in a patinet with extensive history of CKD. Patient creatinine improved s/p hydration making prerenal azotemia most likely etiology. Obstructive componet is a possible of elevated creatinine, however patient did not report change in uronary frequency and renal U/S was unremarkable. #Swollen ankle Patient has right chronic talofibular and malleolar fractures that were not surgically reduced. He experiences acute worsening of his pain 2/2 to arthritis flare up. Eventhoug Xray suggested a narrowing of ankle joint (talo-fibular) with septic arthritis one of the possible etiology, his WBC, decreased warmth and patient report that swelling has decreased in the past few day, there is no need for aspiration as septic arthris is clinical less likely. He is s/p 10 day ABx use for cellulitis and he reports improvement in the swelling, therefore no need for ABX. Pt was able to undergo P/T with toe touch weightbearing on crutches. COnsulted with ortho who agree on our plan to discharge patient with instruction to continue boot wearing,elevation/ice and toe touch weightbearing with crutches. He is to f/u with Dr Marcial as planned prior to admission (for assesment of possible surgical repair). Problem List: 1. Acute kidney injury 2. Near syncope 3. Arthritis of ankle, right Pain Ratin Pain Location: right ankle Pain Goal: Pain 4 or less Pain Plan: per pain pathway Tomorrow's Labs & Rationales: none-discharge
--- NOTE | 2016-11-07 11:25 | Cons- Nephrology ---
General Information and HPI Consulting Request Date of Consult: 11/07/16 Requested By: CADEN SCHULER MD Reason for Consult: CKD/SETH History of Present Illness: I been asked to see this 66-year-old man because of an elevated serum creatinine. Patient has a history of kidney problems since he was a teenager. He does not remember if he underwent a kidney biopsy but apparently has not wanted any renal follow-up over the course of these many years. He knows that his kidney function is abnormal and in reviewing the data from earlier this year his baseline creatinine has been 1.8. Prior to that the only data is from 2003 through 2006 at which time his serum creatinine has generally ranged from 1.3- 1.6. He now comes in with lightheadedness (which resolved by the time he came to the emergency room) and persistent pain and swelling in his right ankle. He has been evaluated for his right ankle earlier this month with negative x-rays. Orthopedic consult of the time felt that this was related to arthritis with severe inflammation of the time associated cellulitis which was treated with antibiotics. Patient denies taking any NSAIDs or being exposed to parenteral contrast. His creatinine on admission was 2.3 prompting this consultation request but has already come down to his baseline of 1.8 with IV saline which has since been discontinued. A spot urine for protein to creatinine ratio and this admission was normal at 0.2. I am not aware of any other renal workup at this time. Past medical history is positive primarily for hypertension and his ankle problem is noted Medications: See below Allergies: No known drug allergies Family history: Negative for any known kidney disease in his parents or other family members Social history: , lives alone, stop smoking in 2013, denies history of alcohol or drug abuse. Allergies/Medications Allergies: Coded Allergies: No Known Allergies (10/18/16) Home Med List: Amoxicillin/Potassium Clav (Augmentin 875-125 Tablet) 875 MG-125 MG TABLET 1 TAB PO BID cellulitis Amoxicillin/Potassium Clav (Augmentin 875-125 Tablet) 875 MG-125 MG TABLET 1 TAB PO BID cellulitis Lisinopril/Hydrochlorothiazide (Lisinopril-Hctz 20-25 MG Tab) 20 MG-25 MG TABLET 1 TAB PO DAILY HEART (Reported) Oxycodone HCl/Acetaminophen (Percocet 5-325 MG Tablet) 5 MG-325 MG TABLET 1 TAB PO Q8P PRN severe pain Please follow up with PCP for refill Review of Systems Review of Systems: Constitutional: Denies: chills, diaphoresis, fever, malaise, weakness, unexplained weight loss. EENTM: Denies: blurred vision, double vision, visual changes, eye pain, eye drainage. Cardiovascular: Denies: chest pain, edema, orthopena, palpitations, peripheral edema. Respiratory: Denies: cough, hemoptysis, orthopnea, short of breath, sputum production, stridor, wheezing. GI: Denies: abdominal pain, bloating, constipation, diarrhea, distention. Genitourinary: Denies: discharge, dysuria, frequency, hematuria, hesitation. Musculoskeletal: Reports: joint pain, joint swelling, muscle pain. Denies: back pain, gout, muscle stiffness, neck pain. Skin: Reports: no symptoms. Neurological/Psychological: Reports: no symptoms. Hematologic/Endocrine: Reports: no symptoms. Immunologic/Allergic: Reports: no symptoms. 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 Home Services at Home: None Smoking Status: Light Tobacco Smoker ETOH Use: occasional use Illicit Drug Use: denies illicit drug use Functional Ability ADLs Independent: dressing, eating, toileting, bathing. Ambulation: independent IADLs Independent: shopping, housework, finances, food prep, telephone, transportation , medication admin. Exam & Diagnostic Data Vital Signs and I&O Vital Signs Date Time Temp Pulse Resp B/P B/P Pulse O2 O2 Flow FiO2 Mean Ox Delivery Rate 11/07 0837 98.8 72 20 118/66 96 11/07 0059 98.0 76 20 104/56 94 Room Air 11/06 2100 Room Air 11/06 2100 98.3 78 16 116/58 96 Room Air 11/06 1950 96.4 75 18 111/57 96 Room Air 11/06 1803 96.0 74 12 130/73 98 Room Air 11/06 1604 97.0 68 16 136/62 96 Room Air 11/06 1505 96.7 11/06 1428 74 18 114/57 97 Room Air Intake & Output 11/07 1600 11/07 0400 11/06 1600 11/06 0400 11/05 0400 Intake Total 800 580 400 Output Total 600 Balance 200 580 400 Intake, IV 600 100 400 Intake, Oral 200 480 Number 1 Bowel Movements Output, Urine 600 Patient 205 lb 205 lb Weight Weight Reported by Patient Measurement Method Physical Exam: General: Well-developed white male appearing to be annoyed but no acute distress Skin: No rash or jaundice HEENT: Conjunctivae pink, sclerae anicteric, mucous membranes moist Neck: Without masses or thyromegaly, no supraclavicular or cervical adenopathy Chest: Clear to P&A Heart: Regular rate and rhythm without S3 or rub Abdomen: Soft and nontender without palpable masses or organomegaly Extremities: Without cyanosis or edema; the right ankle is swollen especially over the medial malleolus, tender with no significant erythema Neuro: No focal findings, no asterixis or myoclonus Assessment/Plan Assessment/Recommendations Assessment: 66-year-old man with long-standing chronic kidney disease apparently first diagnosed when he was a teenager. Details of his evaluation at that time are not available. At this time he was admitted with a serum creatinine that was above his baseline but which rapidly return to his previous levels with some fluid suggesting an element of dehydration. Unfortunately, the patient does not appear to be interested in pursuing any further renal evaluation. He does not have a protein losing nephropathy based on his spot urine for protein to creatinine ratio. I think a renal ultrasound is indicated to get a baseline look at his renal anatomy and to be certain that there is no obstructive component. Other than that, no other evaluation indicated at this time. Recommendations: 1. Renal ultrasound 2. No other renal evaluation 3. Maintain good hydration Thank you for asking us to see Mr. Taylor.
--- NOTE | 2016-11-07 12:05 | PN- Att Addend ---
Attending Addendum Attending Brief Note Patient seen and examined, feels okay. Denies any worsening of pain in his right ankle. Denies feeling dizzy. Patient did walk the physical therapist this morning on nonweightbearing status on right ankle and denies feeling dizzy at that time. Vital Signs Date Time Temp Pulse Resp B/P B/P Pulse O2 O2 Flow FiO2 Mean Ox Delivery Rate 11/07 0837 98.8 72 20 118/66 96 11/07 0059 98.0 76 20 104/56 94 Room Air 11/06 2100 Room Air 11/06 2100 98.3 78 16 116/58 96 Room Air 11/06 1950 96.4 75 18 111/57 96 Room Air 11/06 1803 96.0 74 12 130/73 98 Room Air 11/06 1604 97.0 68 16 136/62 96 Room Air 11/06 1505 96.7 11/06 1428 74 18 114/57 97 Room Air on exam; aox3, nad. cv; s1,s2, rrr resp; clear abd; soft, nt, bs+ ext; no edema. ms: + swelling of right ankle which is chronic. Laboratory Tests 11/07 11/07 11/07 1000 0910 0910 Chemistry Troponin I (<0.11 ng/ml) < 0.01 Urines Urine Color (YEL,AMB,STR) YEL Urine Clarity (CLEAR) CLEAR Urine pH (5.0 - 8.0) 7.5 Ur Specific [place] (1.001 - 1.035) 1.015 Urine Protein (NEG,<30 MG/DL) NEG Urine Ketones (NEG) NEG Urine Nitrite (NEG) NEG Urine Bilirubin (NEG) NEG Urine Urobilinogen (0.1 - 1.0 EU/dl) 0.2 Ur Leukocyte Esterase (NEG) NEG Ur Microscopic SEDIMENT EXAMINED Urine RBC (0 - 5 /HPF) 3-5 Urine WBC (0 - 2 /HPF) 1-3 H Ur Epithelial Cells (NONE,FEW) FEW Urine Crystals 1+ TRIP PHOS H Hyaline Casts (0/LPF) RARE H Urine Hemoglobin (NEG) TRACE-INTACT H Ur Random Creatinine (mg/dL) 66.9 U Random Total Protein (0 - 12 mg/dL) 14 H Protein/Creatinin Ratio (< 0.2) 0.2 Urine Glucose (N MG/DL) NEG 11/07 11/07 11/07 0600 0600 0500 Chemistry Sodium (137 - 145 mmol/L) Cancelled 138 Potassium (3.5 - 5.1 mmol/L) Cancelled 4.9 Chloride (98 - 107 mmol/L) Cancelled 97 L Carbon Dioxide (22 - 30 mmol/L) Cancelled 29 Anion Gap (5 - 16) Cancelled 12 BUN (9 - 20 mg/dL) Cancelled 46 H Creatinine (0.7 - 1.2 mg/dL) Cancelled 1.8 H Estimated GFR (>60 ml/min) 38 L BUN/Creatinine Ratio (7 - 25 %) Cancelled 25.6 H Troponin I (<0.11 ng/ml) 0.02 Vitamin B12 Cancelled Hematology CBC w Diff Cancelled NO MAN DIFF REQ WBC (4.8 - 10.8 /CUMM) Cancelled 11.7 H RBC (4.70 - 6.10 /CUMM) Cancelled 3.61 L Hgb (14.0 - 18.0 G/DL) Cancelled 10.2 L Hct (42 - 52 %) Cancelled 31.1 L MCV (80.0 - 94.0 FL) Cancelled 86.2 MCH (27.0 - 31.0 PG) Cancelled 28.2 RDW (11.5 - 14.5 %) Cancelled 14.2 Plt Count (130 - 400 /CUMM) Cancelled 727 H MPV (7.4 - 10.4 FL) Cancelled 7.3 L Gran % (42.2 - 75.2 %) 67.3 Lymphocytes % (20.5 - 51.1 %) 22.0 Monocytes % (1.7 - 9.3 %) 6.8 Eosinophils % (0 - 5 %) 3.5 Basophils % (0.0 - 2.0 %) 0.4 Absolute Granulocytes (1.4 - 6.5 /CUMM) 7.9 H Absolute Lymphocytes (1.2 - 3.4 /CUMM) 2.6 Absolute Monocytes (0.10 - 0.60 /CUMM) 0.8 H Absolute Eosinophils (0.0 - 0.7 /CUMM) 0.4 Absolute Basophils (0.0 - 0.2 /CUMM) 0 PUBS MCHC (33.0 - 37.0 G/DL) Cancelled 32.8 L 05/11 1435 Chemistry Sodium (137 - 145 mmol/L) 138 Potassium (3.5 - 5.1 mmol/L) 4.9 Chloride (98 - 107 mmol/L) 97 L Carbon Dioxide (22 - 30 mmol/L) 25 Anion Gap (5 - 16) 17 H BUN (9 - 20 mg/dL) 54 H Creatinine (0.7 - 1.2 mg/dL) 2.3 H Estimated GFR (>60 ml/min) 29 L BUN/Creatinine Ratio (7 - 25 %) 23.5 Glucose (65 - 99 mg/dL) 130 H Calcium (8.4 - 10.2 mg/dL) 10.7 H Iron (49 - 181 ug/dL) 34 L TIBC (261 - 462 ug/dL) 259 L Ferritin (17.9 - 464 ng/mL) 196.0 Total Bilirubin (0.2 - 1.3 mg/dL) 0.6 AST (17 - 59 U/L) 22 ALT (21 - 72 U/L) 50 Alkaline Phosphatase (< 127 U/L) 104 Troponin I (<0.11 ng/ml) < 0.01 C-Reactive Prot, Quant (<1.0 mg/dL) 6.7 H Total Protein (6.3 - 8.2 g/dL) 7.5 Albumin (3.5 - 5.0 g/dL) 3.6 Globulin (1.9 - 4.2 gm/dL) 3.9 Albumin/Globulin Ratio (1.1 - 2.2 %) 0.9 L Vitamin B12 (239 - 931 pg/mL) > 1000 H Hematology CBC w Diff NO MAN DIFF REQ WBC (4.8 - 10.8 /CUMM) 13.0 H RBC (4.70 - 6.10 /CUMM) 3.85 L Hgb (14.0 - 18.0 G/DL) 10.9 L Hct (42 - 52 %) 33.0 L MCV (80.0 - 94.0 FL) 85.7 MCH (27.0 - 31.0 PG) 28.3 RDW (11.5 - 14.5 %) 13.8 Plt Count (130 - 400 /CUMM) 830 H MPV (7.4 - 10.4 FL) 7.3 L Gran % (42.2 - 75.2 %) 76.3 H Lymphocytes % (20.5 - 51.1 %) 14.1 L Monocytes % (1.7 - 9.3 %) 6.8 Eosinophils % (0 - 5 %) 2.3 Basophils % (0.0 - 2.0 %) 0.5 Absolute Granulocytes (1.4 - 6.5 /CUMM) 9.9 H Absolute Lymphocytes (1.2 - 3.4 /CUMM) 1.8 Absolute Monocytes (0.10 - 0.60 /CUMM) 0.9 H Absolute Eosinophils (0.0 - 0.7 /CUMM) 0.3 Absolute Basophils (0.0 - 0.2 /CUMM) 0.1 PUBS MCHC (33.0 - 37.0 G/DL) 33.0 A/P; 66 y/o M with pmh sig for hypertension, chronic kidney disease, recent admission for cellulitis and also has malfunctioning right ankle which needs orthopedic evaluation who is placed on telemetry observation with some dizziness and near syncope. Patient also had mild acute kidney injury. This could be related to vasovagal or dehydration. Patient has received IV fluids. Creatinine has improved. Patient did walk with physical therapy today and dizziness has improved significantly. Renal ultrasound is pending as recommended by nephrology. Echocardiogram pending. Once those studies are done and they're okay, patient can be discharged today. He does not need any further course of antibiotics as he has just finished the abx. He can see orthopedic as an outpatient. DVT px; hep sq.
--- NOTE | 2016-11-07 14:04 | Patient Discharge Instructions ---
Discharge Instructions General Discharge Information Special Instructions: Please seek medical attention if you develope more dizziness spells If ankle has increased swelling/redness or you develop fevers, please seek medical attention Please follow up with your primary care within 1 week WEAR BOOT ON AT ALL TIMES WHEN OUT OF BED Ice and elavate affected foot as needed. Please ambulate with crutches using toe touch weight bearing on the affected foot Pleae follow up with Dr Marcial (Orthopedics) as directed please follow up with nephrology within one week Diet Continue normal diet: Yes Acute Coronary Syndrome Inclusion Criteria At DC or during hospital stay patient has or had the following: ACS DIAGNOSIS No Discharge Core Measures Meds if any: Prescribed or Continued at Discharge Meds if any: NOT Prescribed or Continued at Discharge Congestive Heart Failure Inclusion Criteria At DC or during hospital stay patient has or had the following: CHF DIAGNOSIS No Discharge Core Measures Meds if any: Prescribed or Continued at Discharge Meds if any: NOT Prescribed or Continued at Discharge Cerebrovascular accident Inclusion Criteria At DC or during hospital stay patient has or had the following: CVA/TIA Diagnosis No Discharge Core Measures Meds if any: Prescribed or Continued at Discharge Meds if any: NOT Prescribed or Continued at Discharge Venous thromboembolism Inclusion Criteria VTE Diagnosis No VTE Type NONE VTE Confirmed by (Test) NONE Discharge Core Measures - Per Current guidelines, there needs to be overlap - treatment for the first 5 days of Warfarin therapy. - If discharged on Warfarin prior to 5 days of - overlap therapy, the patient will need to be - assessed for post discharge needs including - *Post discharge parental anticoagulation - *Warfarin and/or parental anticoagulation education - *Follow up date to check INR post discharge At least 5 days overlap therapy as Inpatient No Meds if any: Prescribed or Continued at Discharge Note: Overlap Therapy is Warfarin and Anticoagulant Meds if any: NOT Prescribed or Continued at Discharge
--- NOTE | 2016-11-07 17:23 | ULTRASOUND REPORT ---
EXAMINATION: US RETROPERITONEAL COMPLETE (RENAL) CLINICAL INFORMATION: Acute on chronic renal failure. Evaluate for obstruction. COMPARISON: Ultrasound abdomen dated 09/05/2005 TECHNIQUE: Real-time imaging of the kidneys and bladder. FINDINGS: RIGHT KIDNEY: 10.5 x 5.1 x 5.6 cm (SAG x AP x TRV). No suspicious cortical abnormality. No calculi or focal parenchymal lesions. No hydronephrosis. LEFT KIDNEY: 9.9 x 5.2 x 4.4 cm (SAG x AP x TRV). Small and atrophied left kidney cortical thinning. Increased cortical echogenicity. No definite evidence of stones or hydronephrosis. BLADDER: Well-distended and normal. Bilateral ureteral jets are demonstrated. IMPRESSION: Small and atrophied left kidney. Unremarkable right kidney. No evidence of stones or hydronephrosis.
[2016-11-07 20:23] VITALS: BP 136/60
[2016-11-07 20:38] VITALS: BP 122/70
[2016-11-08 01:21] VITALS: BP 118/68
[2016-11-08 08:25] VITALS: BP 126/60
--- NOTE | 2016-11-08 08:38 | PN- Housestaff ---
SHA BORJAS,KIMBERLY 11/08/16 0838: Subjective Follow-up For: SETH Dizziness Tele-Events Since Last Visit: SR 63-73, BBB Subjective: Pt is seen and examined at bedside. He is lying comfortably in bed with no complaints. He feels well at his baseline. No recurrente episodes of dizziness since the admission. Waiting to be discharged after echo is read. Denies any dyspnea, chest pain, palpitations, lightheadedness, dizziness, abdominal pain, n /v/c/d. No acute events reported overnight. Review of Systems Constitutional: Reports: see HPI. Objective Last 24 Hrs of Vital Signs/I&O Vital Signs Date Time Temp Pulse Resp B/P B/P Pulse O2 O2 Flow FiO2 Mean Ox Delivery Rate 11/08 824 98.8 69 15 126/60 93 Room Air 11/08 012 98.4 70 20 118/68 94 Room Air 11/07 2037 98.8 92 22 122/70 96 Nasal 2.0L Cannula 11/07 2022 98.3 86 20 136/60 95 Room Air Intake & Output 11/08 1600 11/08 0800 11/08 0000 Intake Total 200 560 Output Total 400 625 Balance -200 -65 Intake, Oral 200 560 Output, Urine 400 625 Physical Exam General Appearance: Alert, Cooperative, No Acute Distress Other Physical Findings: Skin: mild erythema on right middle malleous area. Cardiovascular: Regular Rate, Normal S1, Normal S2 Lungs: Clear to Auscultation, Normal Air Movement Abdomen: Normal Bowel Sounds, Soft, No Tenderness Neurological: Normal Speech, Normal Tone, Sensation Intact Extremities: mildly erythematous swollwen medial malleoulus of right ankle. Tender to palaption, not warm to touch. decreased ROM DUE TO PAIN Vascular: Normal Pulses, Pulses Symmetrical Current Medications: Current Medications Sig/Rajeev Start time Last Medication Dose Route Stop Time Status Admin Acetaminophen 650 MG Q6P PRN 11/06 2129 AC PO Amoxicillin/ 875 MG Q12 11/06 2199 DC 11/07 Clavulanate Potassium PO 11/07 2200 0901 Heparin Sodium 5,000 UNIT Q8 11/06 2199 AC 11/08 (Porcine) SC 0641 Oxycodone/ 1 TAB Q12 11/06 2199 AC 11/07 Acetaminophen PO 1512 Oxycodone/ 2 TAB Q6P PRN 11/06 2129 AC 11/08 Acetaminophen PO 0641 Phenylephrine HCl 10 MG .STK-MED ONE 11/07 1508 DC IM 11/07 1509 Sodium Chloride 1,000 ML Q13H 11/06 2129 DC 11/06 IV 11/07 1029 2212 Last 24 Hrs of Lab/Delroy Results Last 24 Hrs of Labs/Mics: Laboratory Tests 11/07/16 1000: Troponin I < 0.01 11/07/16 0910: Ur Random Creatinine 66.9, U Random Total Protein 14 H, Protein/Creatinin Ratio 0.2 11/07/16 0910: Urine Color YEL, Urine Clarity CLEAR, Urine pH 7.5, Ur Specific [place] 1.015, Urine Protein NEG, Urine Ketones NEG, Urine Nitrite NEG, Urine Bilirubin NEG, Urine Urobilinogen 0.2, Ur Leukocyte Esterase NEG, Ur Microscopic SEDIMENT EXAMINED, Urine RBC 3-5, Urine WBC 1-3 H, Ur Epithelial Cells FEW, Urine Crystals 1+ TRIP PHOS H, Hyaline Casts RARE H, Urine Hemoglobin TRACE-INTACT H, Urine Glucose NEG Assessment/Plan Assessment: This is a 66 yo gentleman with a PMHX of CKD, HTN, chronic malleola/tibial fracture not reduced by surgery,chronic ankle arthritis, and a recent hospitalization for cellulitis treated with 10 day Augmentin presents for evaluation of dizziness/near syncope. Pt is also noted to have acute rise of creatine from his baseline. He is placed on 23 hr obs for cardiac montoring and evaluation of his presyncope. # Presyncope/dizziness. Dizziness in a patient without any chest pain/palpitation, exertional triggers, no heart valvular/conduction abnormalities or any cardiac disease is very unlikely to be of cardiac etiology. The unremarkable trops/ekg and no acute telemtry events further makes cardiac etiology to be less likely. As a diagnosis of exclusion, it is possible patient had a vasovagal event, he does present with clinical features suggestive of hypotension. * Awaiting echo results. If unremarkable, then discharge patient. #Acute on Chronic Kidney injury Acute elevation of creatine in a patinet with extensive history of CKD. Patient creatinine improved s/p hydration making prerenal azotemia most likely etiology. Obstructive componet is a possible of elevated creatinine, however patient did not report change in uronary frequency and renal U/S was unremarkable. #Swollen ankle Patient has right chronic talofibular and malleolar fractures that were not surgically reduced. He experiences acute worsening of his pain 2/2 to arthritis flare up. Eventhoug Xray suggested a narrowing of ankle joint (talo-fibular) with septic arthritis one of the possible etiology, his WBC, decreased warmth and patient report that swelling has decreased in the past few day, there is no need for aspiration as septic arthris is clinical less likely. He is s/p 10 day ABx use for cellulitis and he reports improvement in the swelling, therefore no need for ABX. Pt was able to undergo P/T with toe touch weightbearing on crutches. COnsulted with ortho who agree on our plan to discharge patient with instruction to continue boot wearing,elevation/ice and toe touch weightbearing with crutches. He is to f/u with Dr Marcial as planned prior to admission (for assesment of possible surgical repair). Problem List: 1. Right ankle sprain 2. Cellulitis of right ankle 3. Acute kidney injury 4. Near syncope 5. Arthritis of ankle, right Pain Ratin Pain Location: 0 Pain Goal: Remain pain free Pain Plan: Mild pathway Tomorrow's Labs & Rationales: None HARINI BORJAS,[facility] 11/08/16 1326: Attending MD Review Statement Attending Statement Attending MD Statement: examined this patient, discuss w/resident/PA/POWER SHOVEL OPERATOR HELPER, agreed w/resident/PA/POWER SHOVEL OPERATOR HELPER, reviewed EMR data (avail), discussed with nursing, reviewed images, amended to note Attending Assessment/Plan: Patient seen and examined, feels okay. Denies any further dizziness. Vital signs remained stable. Echocardiogram came back and does not show any significant abnormality. Ejection fraction is good. Medically stable for discharge home today. Patient to follow-up with primary care doctor as well as orthopedic as an outpatient.
--- NOTE | 2016-11-08 12:09 | ECHOCARDIOGRAM REPORT ---
ANDREW ALLEN Age: 66 : 1950 Gender: M Exam Date: 11/07/2016 12:00 Exam Location: [address] Ht (in): 71 Wt (lb): 205 BSA: 2.18 BP: 118 / 66 Ordering Physician: KELLY SANTOS MD Referring Physician: KELLY SANTOS MD Technologist: Braden Villar [facility] Room Number: 185-1 Indications: LIGHTHEADEDNESS Rhythm: Sinus Technical Quality: good FINDINGS Left Ventricle Normal left ventricular size, wall thickness and systolic function with no obvious regional wall motion abnormalities. Normal left ventricular diastolic filling pattern for age. The ejection fraction is visually estimated at 75%. Right Ventricle The right ventricle is mildly enlarged with normal function. Right Atrium The right atrium is normal in size. Left Atrium The left atrium is normal in size. The interatrial septum is intact. Mitral Valve The mitral valve is normal in structure and function. There is trace mitral regurgitation. Aortic Valve Structurally normal aortic valve without significant sclerosis or stenosis. There is trace aortic regurgitation. Tricuspid Valve The tricuspid valve is normal in structure and function. There is trace tricuspid regurgitation. Pulmonary artery systolic pressure is mildly elevated to 39.8mmHg. Pulmonic Valve Structurally normal pulmonic valve. There is trace pulmonic regurgitation. Pericardium Normal pericardium without effusion. No pleural effusion. Great Vessels Normal aortic root dimension. The aortic arch and great vessels are well seen and are normal. CONCLUSIONS 1. Normal EF of 75%. 2. Mild right ventricular enlargement. 3. Trace mitral regurgitation. 4. Trace tricuspid regurgitation. 5. Trace pulmonic regurgitation. 6. Trace aortic regurgitation. 7. Mild pulmonary hypertension. Jack Hunter M.D. (Electronically Signed) Final Date: 08 Nov 2016 12:08 MEASUREMENTS (Male / Female) Normal Values 2D ECHO LV Diastolic Diameter PLAX 5.3 cm 4.2 - 5.9 / 3.9 - 5.3 cm LV Systolic Diameter PLAX 2.8 cm 2.1 - 4.0 cm LV Fractional Shortening PLAX 47.2 % 25 - 46 % LV Ejection Fraction 2D Teich 78.2 % IVS Diastolic Thickness 0.9 cm LVPW Diastolic Thickness 0.9 cm LV Relative Wall Thickness 0.3 RV Internal Dim ED PLAX 3.8 cm 1.9 - 3.8 cm LVOT Diameter 2.1 cm Aortic Root Diameter 2.9 cm LA Systolic Diameter LX 3.4 cm 3.0 - 4.0 / 2.7 - 3.8 cm Ascending Aorta Diameter 3.1 cm DOPPLER AV Peak Velocity 165.0 cm/s AV Peak Gradient 10.9 mmHg AV Mean Velocity 95.4 cm/s AV Mean Gradient 5.0 mmHg AV Velocity Time Integral 36.6 cm AI Deceleration [place] 205.0 cm/s AI Peak Velocity 330.0 cm/s AI Pressure Half Time 470.0 ms AI Peak Gradient 43.6 mmHg LVOT Peak Velocity 132.0 cm/s LVOT Peak Gradient 7.0 mmHg LVOT Mean Velocity 67.8 cm/s LVOT Mean Gradient 2.0 mmHg LVOT Velocity Time Integral 24.5 cm LVOT Stroke Volume 84.9 cm AV Area Cont Eq vti 2.3 cm AV Area Cont Eq pk 2.8 cm MV Peak Velocity 102.0 cm/s MV Peak Gradient 4.2 mmHg MV Mean Velocity 63.7 cm/s MV Mean Gradient 2.0 mmHg Mitral E Point Velocity 84.9 cm/s Mitral A Point Velocity 87.4 cm/s Mitral E to A Ratio 1.0 MV PHT Velocity 105.0 cm/s MV Deceleration [place] 305.0 cm/s MV Pressure Half Time 103.3 ms MV Area PHT 2.1 cm MV Deceleration Time 261.0 ms TR Peak Velocity 273.0 cm/s TR Peak Gradient 29.8 mmHg Right Atrial Pressure 10.0 mmHg Pulmonary Artery Systolic Pressu 39.8 mmHg Right Ventricular Systolic Press 39.8 mmHg PV Peak Velocity 112.0 cm/s PV Peak Gradient 5.0 mmHg PV Mean Velocity 74.3 cm/s PV Mean Gradient 3.0 mmHg PV Velocity Time Integral 23.5 cm LV E' Lateral Velocity 10.0 cm/s Mitral E to LV E' Lateral Ratio 8.5 LV E' Septal Velocity 6.7 cm/s Mitral E to LV E' Septal Ratio 12.6
[2016-11-08] MEDS ORDERED: PERCOCET 5-3251 EACH PO ×2 (14:51→14:52)
== END 2016-11-08 15:40 ==
LOC: ERH 14:24 → 1NO 17:06 → ERHI 17:06 → ENRESERV 20:14 → 1NO 20:59 → ENPENDDIS 11-08 13:43 → 1NO 11-08 15:40
PROVIDERS: Internal Medicine; Physician Assistant Medical; ADMIT Student in an Organized Health Care Education/Training Program
DX: R55 Syncope and collapse (principal); I12.9 Hypertensive chronic kidney disease with stage 1 through stage 4 chronic kidney disease, or unspecified chronic kidney disease; N18.3 Chronic kidney disease, stage 3 (moderate); N17.9 Acute kidney failure, unspecified; S82.891K Other fracture of right lower leg, subsequent encounter for closed fracture with nonunion; M19.171 Post-traumatic osteoarthritis, right ankle and foot; D47.3 Essential (hemorrhagic) thrombocythemia; Z66 Do not resuscitate
CPT/HCPCS: 2000; 36415; 76775; 81001; 82436; 82570; 87040; 93005; 93010; 93306; 96360; 96372; 97116-GP; 97161-GP; 97530-GP; G0378; G8978-GP; G8979-GP; G8980-GP; J1644

== ENCOUNTER 2016-11-17 09:57 | Inpatient (IN) | payer OTHER, MEDICARE ==
[~2016-11-17] VITALS: Ht 180.3 cm; Wt 93.0 kg
--- NOTE | 2016-11-17 10:15 | ED UPPER/LOWER EXTREMITY COMPL ---
History of Present Illness General Chief Complaint: Lower Extremity Injury Stated Complaint: ANKLE INFECTION Source: patient, old records Exam Limitations: no limitations Vital Signs & Intake/Output Vital Signs & Intake/Output Vital Signs Date Time Temp Pulse Resp B/P B/P Pulse O2 O2 Flow FiO2 Mean Ox Delivery Rate 11/179 98.8 76 20 104/64 93 Room Air 11/17 1757 98.6 74 20 130/62 97 Room Air 11/17 1634 98.0 70 16 122/62 98 Room Air 11/17 1317 98.2 68 18 129/66 98 Room Air 11/17 1054 76 18 109/56 11/17 1023 80 76/42 11/17 1003 97.0 84 20 86/60 97 Room Air ED Intake and Output 11/18 0000 11/17 1200 Intake Total 780 2000 Output Total 700 Balance 80 2000 Intake, IV 300 2000 Intake, Oral 480 Output, Urine 700 Patient 205 lb 205 lb Weight Weight Reported by Patient Measurement Method Allergies Coded Allergies: No Known Allergies (10/18/16) Reconcile Medications Lisinopril/Hydrochlorothiazide (Lisinopril-Hctz 20-25 MG Tab) 20 MG-25 MG TABLET 1 TAB PO DAILY HEART (Reported) Oxycodone HCl/Acetaminophen (Percocet 5-325 MG Tablet) 5 MG-325 MG TABLET 1 TAB PO Q8P PRN severe pain Please follow up with PCP for refill Triage Note: SIB DR CABRERA FROM [facility] FOR RIGHT ANKLE INFECTION S/P SPRAINED ANKLE AT WORK Triage Nurses Notes Reviewed? yes Onset: Abrupt Duration: 1 MONTH Severity: moderate, severe Pain/Injury Location: Right: Ankle. Method of Injury: TWISTED Modifying Factors: Worsens With: movement. Associated Symptoms: swelling HPI: This is a 66-year-old male with history of hypertension, previous ankle fracture with multiple recent visits to the ER including 2 patient admissions for cellulitis and near syncope who presents to the ER from [facility] sent for evaluation of right ankle with MRI. He agrees the patient he was seeing his primary care doctor who had an orthopedic doctor evaluate the patient. He was sent here and they told him that he needed an MRI and further evaluation. Patient was due to follow up with orthopedic surgery after discharge for right ankle fusion. 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 Had an elevated sedimentation rate in the hospital but Dr. Duran felt that it was secondary to poorly healed fracture and not due to septic arthritis. Patient denies any fever or chills. He states it is less swollen and red than before but is still painful. He hasn't been eating and drinking very much because he has a hard time standing. Past History Travel History Traveled to [place] past 21 day No Medical History Any Pertinent Medical History? see below for history Neurological: NONE EENT: NONE Cardiovascular: hypertension Respiratory: NONE Gastrointestinal: NONE Hepatic: NONE Renal: NONE Musculoskeletal: R LEG FX R ANKLE FX Psychiatric: NONE Endocrine: NONE Blood Disorders: NONE Cancer(s): NONE CLINICAL REHAB LIAISON/Reproductive: NONE History of MRSA: No History of VRE: No History of CDIFF: No Surgical History Surgical History: non-contributory Psychosocial History Who do you live with Patient/Self Services at Home None What is your primary language Belarusian Tobacco Use: Quit >30 days ago ETOH Use: occasional use Illicit Drug Use: denies illicit drug use Family History Family History, If Any: Relation not specified for: *No pertinent family history Hx Contributory? No Review of Systems Review of Systems Constitutional: Reports: weakness. Denies: chills, fever. EENTM: Reports: no symptoms. Respiratory: Denies: cough, short of breath. Cardiovascular: Denies: chest pain, palpitations. Gastrointestinal/Abdominal: Denies: abdominal pain. Genitourinary: Reports: no symptoms. Musculoskeletal: Reports: joint pain, joint swelling. Skin: Reports: no symptoms. Neurological/Psychological: Denies: confusion. Hematologic/Endocrine: Denies: bruising, bleeding, polyuria, polydipsia. Immunological: Reports: no symptoms. All Other Systems: Reviewed and Negative Physical Exam Physical Exam General Appearance: well developed/nourished, alert, awake, mild distress Head: atraumatic Eyes: Bilateral: PERRL, EOMI. Ears, Nose, Throat: normal pharynx, normal ENT inspection, hearing grossly normal Neck: normal inspection, supple Cardiovascular/Respiratory: regular rate/rhythm Peripheral Pulses: 1+ radial (R), 2+ radial (L) Gastrointestinal: SOFT NONTENDER Back: normal inspection Leg Left: normal range of motion, normal inspection Leg Right: normal range of motion, normal inspection Hip Left: normal range of motion, normal inspection Hip Right: normal range of motion, normal inspection Knee Left: normal range of motion, normal inspection Knee Right: normal range of motion, normal inspection Foot Left: normal inspection, normal range of motion Foot Right: swelling, RIGHT ANKLE EDEMATOUS, TENDER TO PALPATION Neurologic/Tendon: normal sensation, normal tendon functions Skin: intact, normal color, warm/dry Lymphatic: no anterior cervical león Progress Differential Diagnosis: cellulitis, ARTHRITIS, OSTEOMYELITIS, ABSCESS, SETH, DEHYDRATION, CHRONIC ANKLE PAIN Plan of Care: Orders Procedure Date/time Status Heart Healthy Diet 11/18 B Active CBC WITHOUT DIFFERENTIAL 11/18 06 Active BASIC ELECTROLYTES PLUS BUN&CR 11/18 06 Active Heart Healthy Diet 11/17 D Complete CMS- Neurovascular Checks 11/17 2056 Active Skin/Pressure Ulcer Assess (Sk 11/17 1832 Active Vital Signs 11/17 1746 Complete Teach/Educate 11/17 174 Active Pain Treatment and Response 11/17 174 Active Nutritional Intake, Monitor 11/17 174 Active Isolation 11/17 174 Active Intake & Output 11/17 174 Complete Patient Care Conference 11/17 1746 Active Activity/Ambulation 11/17 1746 Active Pathway - chart 11/17 1621 Active PT Evaluate & Treat 11/17 1620 Active Pathway - chart 11/17 1620 Active House Staff 11/17 1620 Active Code Status 11/17 1620 Active Patient Data 11/17 1314 Active Admit to inpatient 11/17 1249 Active Vital Signs 11/17 1249 Active Code Status 11/17 1249 Complete WESTERGREN SED RATE 11/17 1031 Complete Intake & Output 11/17 1023 Active BLOOD CULTURE 11/17 1020 Active TROPONIN LEVEL 11/17 1020 Complete PARTIAL THROMBOPLASTIN TIME 11/17 1020 Complete PROTHROMBIN TIME 11/17 1020 Complete LACTIC ACID 11/17 1020 Complete COMPREHENSIVE METABOLIC PANEL 11/17 1020 Complete CBC WITHOUT DIFFERENTIAL 11/17 1020 Complete EKG 11/17 1020 Active VTE Mechanical Prophylaxis 11/17 UNK Active Current Medications Sig/Rajeev Start time Last Medication Dose Stop Time Status Admin Polyethylene Glycol 17 GM DAILY 11/18 1000 AC (Miralax) Heparin Sodium 5,000 UNIT Q8 11/170 AC 11/17 (Porcine) 2049 Senna/Docusate Sodium 1 TAB BID 11/17 220 AC 11/17 (Senokot S) 2049 Acetaminophen 650 MG Q6P PRN 11/17 1630 AC (Tylenol) Acetaminophen 1,000 MG Q6P PRN 11/17 1630 AC (Ofirmev) Oxycodone/ 2 TAB Q6P PRN 11/17 1630 AC 11/18 Acetaminophen 0249 (Percocet) Sodium Chloride 1,000 ML .Q8H 11/17 1630 AC 11/17 (Normal Saline 0.9%) 1949 Laboratory Tests 11/17/16 1320: Lactic Acid Cancelled 11/17/16 1120: Anion Gap 14, Estimated GFR 23 L, BUN/Creatinine Ratio 22.5, Glucose 93, Lactic Acid 1.5, Calcium 9.4, Total Bilirubin 0.4, AST 17, ALT 33, Alkaline Phosphatase 92, Troponin I < 0.01, Total Protein 6.8, Albumin 3.1 L, Globulin 3.7, Albumin/ Globulin Ratio 0.8 L, PT 14.4 H, INR 1.38 H, APTT 26, ESR Westergren > 130 H 11/17/16 1027: CBC w Diff MAN DIFF ORDERED, RBC 3.78 L, MCV 83.8, MCH 28.4, RDW 13.9, MPV 8.1, Gran % 83.7 H, Lymphocytes % 12.6 L, Monocytes % 2.7, Eosinophils % 0.8, Basophils % 0.2, Absolute Granulocytes 14.2 H, Absolute Lymphocytes 2.1, Absolute Monocytes 0.5, Absolute Eosinophils 0.1, Absolute Basophils 0, Platelet Estimate INCREASED, Anisocytosis 1+, PUBS MCHC 33.9 Microbiology 11/17 1120 BLOOD: Blood Culture - RECD 11/17 1027 BLOOD: Blood Culture - RECD LABS, FLUID BOLUS, LABS ORDERED. REPEAT FLUID BOLUS ORDERED. MRI called, no availability until late afternoon at this time. Elevated white blood cell count of 17,000. Improved blood pressure. Chemistries are pending. Patient family updated regarding results. (MOOSE BORJAS,KELLY) Diagnostic Imaging: Viewed by Me: Radiology Read, MRI. Discussed w/RAD: Radiology Read, MRI. Radiology Impression: PATIENT: ANDREW ALLEN PRESENT AGE: 66 PATIENT ACCOUNT NO: [id number] : 49 LOCATION: [facility] ORDERING PHYSICIAN: KELLY VIRK MD SERVICE DATE: 11/17/16 EXAM TYPE: RAD - XRY -EYE,DETECTION-FOREIGN BODY EXAMINATION: XR ORBITS, FOREIGN BODY SCREENING CLINICAL INFORMATION: Pre-MRI screening. COMPARISON: None TECHNIQUE: 3 views of the orbits were obtained. FINDINGS: 3 views demonstrate no radiopaque foreign bodies. IMPRESSION: No metallic foreign body identified. DICTATED BY: TYLER CHOWDHURY MD DATE/TIME DICTATED:11/17/161437 MEDICAL RECORD SPECIALIST:ARMIN DATE/ TIME TRANSCRIBED:11/17/161437 CONFIDENTIAL, DO NOT COPY WITHOUT APPROPRIATE AUTHORIZATION. <Electronically signed in Other Vendor System> SIGNED BY: TYLER CHOWDHURY MD 11/17/16 1443, PATIENT: ANDREW ALLEN PRESENT AGE: 66 PATIENT ACCOUNT NO: [id number] : [birth year] LOCATION: [facility] ORDERING PHYSICIAN: KELLY VIRK MD SERVICE DATE: 11/17/16 EXAM TYPE: MRI - MRI-RT ANKLE W/O PATRICE EXAMINATION: MR ANKLE WITHOUT CONTRAST, RIGHT CLINICAL INFORMATION: Right ankle pain and swelling. Previous cellulitis. Rule out osteomyelitis or abscess. COMPARISON: Radiograph from 10/28/2016. TECHNIQUE: Multiplanar MR imaging was performed through the right ankle on a 1.5T scanner without intravenous contrast. FINDINGS: There is significant bone marrow signal abnormality seen along the ankle mortise, involving the tibial plafond, the medial malleolus, the lateral malleolus, and a large portion of the talus. There is decreased signal on T1-weighted imaging with increased signal on T2-weighted imaging. Single changes are also seen within the posterior lateral calcaneus. There is marked joint space narrowing at the tibiotalar articulation, with essential loss of the cartilage. Subchondral cyst formation seen in the navicular at the talonavicular joint. Alignment is maintained throughout the ankle and hindfoot. There is linear transverse low signal at the medial malleolus suggesting a fracture, of uncertain chronicity. This is likely chronic and is seen on the prior radiograph. Small joint effusion is present. Diffuse edema throughout the deep musculature of the foot is noted. Edema throughout the soft tissues surrounding the ankle joint. There is an abnormal appearance of the flexor digitorum longus, with multiple separate tendons noted. While there is edema in the adjacent soft tissues, there is no significant fluid surrounding the tendons to suggest tenosynovitis. The tendon signal is maintained. The remaining ankle tendons are unremarkable. Given the extensive edema in the soft tissues surrounding the ankle, evaluation of the ankle ligaments is limited. The talofibular and tibiofibular ligaments are not well seen. The calcaneofibular ligament is not well seen. A majority of the deltoid ligament is likely chronically torn with minimal fibers remaining intact. The Lisfranc ligament is intact. There is circumferential soft tissue swelling. No fluid collections seen. The Achilles tendon is intact. The plantar fascia is intact. Plantar heel spur noted. IMPRESSION: Diffuse marrow edema surrounding the ankle mortise as detailed above, affecting the distal tibia and fibula, the talus, and the calcaneus. This appearance is nonspecific. A joint effusion is present and this could represent septic arthritis with associated osteomyelitis. Neuropathic or degenerative changes could have this appearance. Similarly, edema throughout the deep musculature of the foot could be reactive for neuropathic in nature. No evidence for abscess. DICTATED BY: KATHIE GALEANO MD DATE/TIME DICTATED:1629 MEDICAL RECORD SPECIALIST:ARMIN DATE/TIME TRANSCRIBED:11/17/161629 CONFIDENTIAL, DO NOT COPY WITHOUT APPROPRIATE AUTHORIZATION. <Electronically signed in Other Vendor System> SIGNED BY: FROYLAN BORJAS,KATHIE 11/17/16 1642 Initial ED EKG: NSR Departure Departure Disposition: STILL A PATIENT Condition: Stable Clinical Impression Primary Impression: SETH (acute kidney injury) Secondary Impressions: Hypotension Referrals: ROSALIA HE APRN (PCP/Family) Departure Forms: Customer Survey General Discharge Information Admission Note Spoke With: OMAR OLIVEIRA MD Documentation of Exam: Documentation of any treatments & extenuating circumstances including Concerns Regarding Discharge (functional status, medication knowledge or non-compliance, living conditions, etc.) that warrant an admission rather than observation: [MRI ANKLE, ORTHOPEDIC CONSULT, FLUID RESUSSCIATION, MONITOR RENAL FUNCTION, F/U CULTURES] Critical Care Note Critical Care Note Critical Care Time: 30-74 min
[2016-11-17 10:41] LABS: ABSOLUTE BASOPHIL COUNT 0 /CUMM (0.0-0.2); ABSOLUTE EOSINOPHIL COUNT 0.1 /CUMM (0.0-0.7); ABSOLUTE GRANULOCYTE CT 14.2 /CUMM (1.4-6.5); ABSOLUTE LYMPH COUNT 2.1 /CUMM (1.2-3.4); ABSOLUTE MONOCYTE COUNT 0.5 /CUMM (0.10-0.60); BASOPHIL % 0.2 % (0.0-2.0); EOSINOPHIL % 0.8 % (0-5); GRANULOCYTE % 83.7 % (42.2-75.2); HEMATOCRIT 31.7 % (42-52); MEAN CORPUSCULAR HGB 28.4 PG (27.0-31.0); MEAN CORPUSCULAR HGB CONC 33.9 G/DL (33.0-37.0); MEAN CORPUSCULAR VOLUME 83.8 FL (80.0-94.0); MEAN PLATELET VOLUME 8.1 FL (7.4-10.4); PLATELET COUNT 652 /CUMM (130-400); RBC DISTRIBUTION WIDTH 13.9 % (11.5-14.5); RED BLOOD CELL CT 3.78 /CUMM (4.70-6.10)
[2016-11-17 11:51] LABS: PT 14.4 SEC (9.4-12.5); PTT 26 SEC (25-37)
--- NOTE | 2016-11-17 13:23 | History & Physical ---
DEXTER BORJAS,[facility] 11/17/16 1323: General Information and HPI MD Statement: I have seen and personally examined ANDREW ALLEN and documented this H&P. The patient is a 66 year old M who was refered from doctor's office (?Dr Carlisle) for concerns about possible infection at Right ankle. Source of Information: patient Exam Limitations: no limitations History of Present Illness: 66-year-old male with PMH of HTN, CKD, medial malleolar fracture with high fibula fracture not treated with ORIF, syndesmotic injury with unstable ankle all leading to end-stage ankle arthritis, had recent slip and fall injury on , had ED visit for the same, discharged and later presented with redness, pain , and swelling of same ankle at which point, he was admitted to rule out septic arthritis, and other pathologies from 10/27-10/29. He had received IV Unasyn initially and later discharged on PO Augmentin for a total of seven days antibiotics for cellulitis. He was supposed to follow up with Orthopedics as outpatient but was missing appointments, and today on outpatient follow up clinic, he was evaluated and refered to the ED to rule out septic arthritis, osteomyelitis, abscess, and to be managed accordingly. According to the patient, he does not have increased redness, swelling. Pain is only present when he moves the ankle or upon pressure. He has been compliant with medication. No new trauma noted. He denies any fever, chills, open wound around the ankle area. In fact, he thinks the swelling and inflammation is getting better. Blood pressure in the emergency department was initially low at 86/60, rest of the vital signs were within normal limits. He received 2 L of IV fluids normal saline in the ED, which responded well with a blood pressure of 109/56. Allergies/Medications Allergies: Coded Allergies: No Known Allergies (10/18/16) Home Med list Lisinopril/Hydrochlorothiazide (Lisinopril-Hctz 20-25 MG Tab) 20 MG-25 MG TABLET 1 TAB PO DAILY HEART (Reported) Oxycodone HCl/Acetaminophen (Percocet 5-325 MG Tablet) 5 MG-325 MG TABLET 1 TAB PO Q8P PRN severe pain Please follow up with PCP for refill Past History Travel History Traveled to [place] past 21 day No Medical History Neurological: NONE EENT: NONE Cardiovascular: hypertension Respiratory: NONE Gastrointestinal: NONE Hepatic: NONE Renal: NONE Musculoskeletal: R LEG FX R ANKLE FX Psychiatric: NONE Endocrine: NONE Blood Disorders: NONE 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 Ambulation: independent IADLs Independent: shopping, housework, finances, food prep, telephone, transportation , medication admin. Review of Systems Review of Systems Constitutional: Reports: see HPI. EENTM: Reports: no symptoms. Cardiovascular: Reports: no symptoms. Respiratory: Reports: no symptoms. GI: Reports: no symptoms. Genitourinary: Reports: no symptoms. Musculoskeletal: Reports: see HPI. Skin: Reports: no symptoms. Neurological/Psychological: Reports: no symptoms. Hematologic/Endocrine: Reports: no symptoms. All Other Systems: Reviewed and Negative Exam & Diagnostic Data Last 24 Hrs of Vital Signs/I&O Vital Signs Date Time Temp Pulse Resp B/P B/P Pulse O2 O2 Flow FiO2 Mean Ox Delivery Rate 11/17 1757 98.6 74 20 130/62 97 Room Air 11/17 1634 98.0 70 16 122/62 98 Room Air 11/17 1317 98.2 68 18 129/66 98 Room Air 11/17 1054 76 18 109/56 11/17 1023 80 76/42 11/17 1003 97.0 84 20 86/60 97 Room Air Intake & Output 11/17 1600 11/17 0800 11/17 0000 Intake Total 2000 Output Total Balance 2000 Intake, IV 2000 Patient 92.986 kg Weight Weight Reported by Patient Measurement Method Physical Exam General Appearance Alert, Oriented X3, Cooperative, No Acute Distress Sepsis Peripheral Pulse Location: Dorsalis Pedis Sepsis Peripheral Pulse Exam: Normal Sepsis Cap Refill Exam: <2 Sec Last 24 Hrs of Labs/Delroy: Laboratory Tests 11/17/16 1120: Anion Gap 14, Estimated GFR 23 L, BUN/Creatinine Ratio 22.5, Glucose 93, Lactic Acid 1.5, Calcium 9.4, Total Bilirubin 0.4, AST 17, ALT 33, Alkaline Phosphatase 92, Troponin I < 0.01, Total Protein 6.8, Albumin 3.1 L, Globulin 3.7, Albumin/ Globulin Ratio 0.8 L, PT 14.4 H, INR 1.38 H, APTT 26, ESR Westergren > 130 H 11/17/16 1027: CBC w Diff MAN DIFF ORDERED, RBC 3.78 L, MCV 83.8, MCH 28.4, RDW 13.9, MPV 8.1, Gran % 83.7 H, Lymphocytes % 12.6 L, Monocytes % 2.7, Eosinophils % 0.8, Basophils % 0.2, Absolute Granulocytes 14.2 H, Absolute Lymphocytes 2.1, Absolute Monocytes 0.5, Absolute Eosinophils 0.1, Absolute Basophils 0, Platelet Estimate INCREASED, Anisocytosis 1+, PUBS MCHC 33.9 Microbiology 11/17 1120 BLOOD: Blood Culture - RECD 11/17 1027 BLOOD: Blood Culture - RECD Diagnostic Data EKG Results EKG shows normal sinus rhythm at rate 63, QTC is 426, no abnormal ST-T changes, previous EKG compared. Other Results Right ankle MRI shows diffuse marrow edema surrounding the ankle mortise, affecting tibia, fibula, talus, calcaneus. Joint effusion present. Cannot rule out septic arthritis or associated osteomyelitis. Degenerative or neuropathic changes present. Edema present throughout the deep musculature of the foot that could be reactive. Physical examnination: General: well nourished patient, not in distress Head: Normocephalic, atraumatic Eyes: Pupils normal in size, regular, reacting to light and accommodation, EOM normal Throat/mouth: Dry mucosa Neck: Supple, full range of motion, no thyromegaly Heart: Regular rate, regular rhythm Lung: Normal breath sound bilaterally Added sound not heard Abd: Soft, non-tender, no distention appreciated Back: Normal range of motion Extremities: Normal knee exam bilaterally, no pedal edema, Distal neurovascular intact. RIGHT ANKLE HAS PERMANENT VALGUS DEFORMITY WITH SWELLING AT ANKLE JOINT AND SOME DISCOLORATION OVER THE MEDICAL MALLEOLUS WITH LOSS OF NORMAL SUPERFICIAL ANATOMY, TENDER ON PALPATION, SAYS ITS GETTING BETTER THAN BEFORE, DISTAL NEURO VASCULATURE INTACT. Neurologic: Alert, oriented x3, Cranial exam grossly intact, Speech is clear and coherent Skin: Warm and dry, except discoloration as mentioned above for right ankle Psychiatric: Calm, cooperative, coherant Assessment/Plan Assessment: 66-year-old male with PMH of HTN, CKD, medial malleolar fracture with high fibula fracture not treated with ORIF, syndesmotic injury with unstable ankle all leading to end-stage ankle arthritis, had recent slip and fall injury on , seen in Ed and later admitted at , was referred from outpatient clinic earlier today with a concern of osteomyelitis/septic arthritis of his right ankle joint. ED presentation and course as mentioned above in HPI. Patient is currently admitted to the general medical floor for the management of following issues: #Right ankle injury, status post slip and fall injury on 10/17/2016 Patient sustained a fall injury on 10/17/2016, was seen by physicians in the emergency department, orthopedics, also admitted once for syncope afterwards, was referred from outpatient clinic with concerns of swelling, redness, pain over right ankle joint. Off note, patient denies worsening of his swelling, pain, or redness. He has missed outpatient orthopedic clinic appointments, thus it is hard to tell about the course he had after he was discharged. He does have fever, but he still has right ankle swelling, pain, low blood pressure on presentation and amenable to IV fluid resuscitation, and a white count of 17,000 , which makes septic arthritis or possible differential diagnosis, among others. MRI of right ankle joint has been sent, awaiting reports, and orthopedic evaluation has been requested, until which, patient is being followed off antibiotics. #History of hypertension on meds Patient's blood pressure was in the lower range when he initially presented to the emergency department, is now getting better, thus will hold his antihypertensive medications for now. We will reassess the situation again in the morning. #Acute kidney injury on chronic kidney disease Patient has a long-standing history of chronic kidney disease and was following Dr. Barreto per EMR. His lowest creatinine level in the EMR is 1.8 on 2016, and he presented today with creatinine of 2.8. He appeared dry on presentation, received 2 L normal saline bolus, and has a BUN of 63 making prerenal failure most likely. We will avoid nephrotoxic drugs, and he doesn't have any urologic obstruction, thus ruling out other forms of renal failure. #Diet: Heart healthy diet #DVT prophylaxis with subcutaneous heparin #CODE STATUS is DNR/DNI As Ranked By This Provider Problem List: 1. Arthritis of ankle, right 2. Acute kidney injury 3. CKD (chronic kidney disease) Core Measures/Miscellaneous Acute Coronary Syndrome ACS Diagnosis: No Cerebrovascular Accident CVA/TIA Diagnosis: No Congestive Heart Failure CHF Diagnosis: No Venous Thromboembolism VTE Risk Factors: Age > 40, Obesity No [facility] VTE prophylaxis d/t: No contraindications No VTE Pharm Prophylaxis d/t: Renal impairment VTE Diagnosis: No VTE Type: NONE VTE Confirmed by (Test): NONE Severe Sepsis Severe Sepsis Present: No Septic Shock Septic Shock Present: No Miscellaneous Documentation Attending Case Discussed With: MIREYA BRAUN M.D Primary Care Physician: ROSALIA HE APRN Patient sees these Specialists Orthopedics Level of Patient Care: General Medicine JANEL CADET 11/17/16 1530: Resident Review Statement Resident Statement: discussed with food and beverage intern Other Findings: This is a 66-year-old male with past medical history of hypertension, chronic kidney disease, intermittent smoker, nonalcoholic, no illicit drug abuse, previously seen 10/18/16 after having a mechanical fall and tripping over the right ankle, at which point right ankle did not show any acute fracture, seen again on 10/27/2016 with chief complain of right ankle swelling and severe pain with limited mobility of right ankle joint, seen by orthopedic Dr. Abbott, found to have right ankle end-stage arthritis, with severe inflammation and associated cellulitis ( r/o septic arthritis), discharged on 10/29/2016 after being treated for associated cellulitis with IV Unasyn and discharged on Augmentin for a total of 7 days with plans to follow up with orthopedic doctor as outpatient after being prescribed walking boot, non-weight bearing until further plan for ankle fusion as outpatient, last seen in [facility] on November 06 when he presented with lightheadedness and near syncope and he stayed to November 08. Patient is presenting today after being sent in by an outside physician for workup for suspicion of infection on the right ankle. Patient denies any fevers or chills, he denies any excessive swelling or pain on the right ankle joint, he reports that the redness and the swelling has significantly decreased. Patient denies any chest pain palpitations shortness of breath, abdominal pain urinary symptoms, nausea vomiting or abdominal pain. He has not been taking enough due to reduced movement but this has not changed recently. Vital signs on arrival afebrile 97.0 heart rate of 84 respiration of 20 blood pressure 86/60, saturation 97% on room air after bolus of fluids systolic increased to 110's Physical exam: Seated comfortably on the bed not in any acute distress and the patient does not appear to be in pain. Extremities: There is OLD skin changes on the right ankle medial side mostly back with old skin marking showing improvement on the skin changes, tenderness on deep palpation, palpable peripheral pulses the left ankle is completely normal Heart: RRR, Normal S1-S2 no murmurs Chest: Clear lungs bilaterally Abdomen: Normal contour, with the respiration no palpable mass normal bowel sounds Assessment and plan This is a 66 years old man who is presenting to [facility] after being sent by his outside physician for imaging of ankle which he injured around September and was seen in [facility] around first during which he received IV Unasyn and discharged on Augmentin and completed a total of 10 days of antibiotic. The patient denies pain out of proportion or new swelling of the ankle joint but rather volunteers improvement of the ankle joint. MRI shows small joint effusion with underlying edema of soft tissues. He was hypotensive on arrival but improved with fluid bolus. He has SETH on his underlying chronic CKD with creatinine increasing to 2.8 from baseline of 1.8 Admit patient to general medicine floor Vital signs every shift Continue to monitor blood pressure closely while patient is off antibiotic in case blood pressure crushers would consider starting vancomycin IV normal saline 125 mL per hour Orthopedic review Pain control through pathway with Tylenol and Percocet Patient is DNR/DNI Heparin for DVT prophylaxis TATIANA BORJAS,BA 11/17/16 1652: Attending MD Review Statement Attending Statement Attending MD Statement: examined this patient, discuss w/resident/PA/MORTUARY BEAUTICIAN, agreed w/resident/PA/MORTUARY BEAUTICIAN, reviewed EMR data (avail), reviewed images Attending Assessment/Plan: 66-year-old male past medical history of chronic kidney disease and hypertension. He was here from October 27 to October 29 and then again from November 06 to November 08. He has a history of fall and trauma and chronic fracture in his medial malleoli and high fibular area. When he was here from October 27 to October 29 he had a lot of swelling and redness and they treated him with a course of antibiotics for presumed cellulitis. At that point they consulted orthopedics involved and orthopedics felt that this is a chronic fracture non union that has led to some kind of anatomical deformity with severe end-stage arthritis and felt that for now we should control the inflammation and he would need to be seen in the office for ultimate fusion. He came again on November [address] to the orthopedics [facility] when he developed dizziness and presyncope. He was worked up for the syncope, treated for SETH on CKD. Watched off antibiotics and again discharged with orthopedic follow-up. I spoke to the orthopedic doctor's office and apparently he had 3 appointments, 2 of which he no showed and 1 he cancelled. He returned today after he was seen by the doctor at [facility] who was concerned for ongoing ankle swelling and osteomyelitis. In the ER he was found to be hypotensive with SETH and profoundly dehydrated. He has had an MRI and I reviewed the results of the MRI. At this point my biggest concern is obviously what's going on in the right ankle. The MRI is reassuring in that it's a very small effusion and most of the swelling is within the soft tissue structures although they cannot rule out the possibility of a septic arthritis versus an osteomyelitis. I requested an urgent ortho consult and I've spoken to Abelardo Singer MD's office that the patient needs to be seen today. Abelardo Singer MD is in the OR right now and I have left my cell phone number for him to call me. Given that clinically pt says it's gotten better and the area marked looks more extensive than the swelling right now and given that it's not as red as it was before as per the patient I think we'll watch him off antibiotics and follow-up closely on what ortho says. The SETH and the hypotension I believe is all hypovolemic with ongoing lisinopril and hydrochlorothiazide use and will hold all of that for now hydrate him and follow his numbers closely.
--- NOTE | 2016-11-17 14:43 | RADIOLOGY REPORT ---
EXAMINATION: XR ORBITS, FOREIGN BODY SCREENING CLINICAL INFORMATION: Pre-MRI screening. COMPARISON: None TECHNIQUE: 3 views of the orbits were obtained. FINDINGS: 3 views demonstrate no radiopaque foreign bodies. IMPRESSION: No metallic foreign body identified.
--- NOTE | 2016-11-17 15:26 | Admission Certification ---
Admission Certification Certification Statement - As attending physician, I certify that at the time of - admission, based on clinical presentation, severity of - symptoms, need for further diagnostic testing and - therapeutic interventions, and risk of adverse outcomes - without in-hospital treatment, in my clinical assessment, - this patient requires an acute hospital stay for a minimum - of two nights or longer. I have also considered psychsocial - factors such as support system, advanced age, financial - issues, cognitive issues, and failed out-patient treatments, - past re-admission history, safety of patient, and lack of - compliance as applicable. Specific rationale supporting this admission is: Hypovolemic shock with SETH and right ankle pain and swelling, questionable osteomyelitis.
--- NOTE | 2016-11-17 16:42 | MRI REPORT ---
EXAMINATION: MR ANKLE WITHOUT CONTRAST, RIGHT CLINICAL INFORMATION: Right ankle pain and swelling. Previous cellulitis. Rule out osteomyelitis or abscess. COMPARISON: Radiograph from 10/28/2016. TECHNIQUE: Multiplanar MR imaging was performed through the right ankle on a 1.5T scanner without intravenous contrast. FINDINGS: There is significant bone marrow signal abnormality seen along the ankle mortise, involving the tibial plafond, the medial malleolus, the lateral malleolus, and a large portion of the talus. There is decreased signal on T1-weighted imaging with increased signal on T2-weighted imaging. Single changes are also seen within the posterior lateral calcaneus. There is marked joint space narrowing at the tibiotalar articulation, with essential loss of the cartilage. Subchondral cyst formation seen in the navicular at the talonavicular joint. Alignment is maintained throughout the ankle and hindfoot. There is linear transverse low signal at the medial malleolus suggesting a fracture, of uncertain chronicity. This is likely chronic and is seen on the prior radiograph. Small joint effusion is present. Diffuse edema throughout the deep musculature of the foot is noted. Edema throughout the soft tissues surrounding the ankle joint. There is an abnormal appearance of the flexor digitorum longus, with multiple separate tendons noted. While there is edema in the adjacent soft tissues, there is no significant fluid surrounding the tendons to suggest tenosynovitis. The tendon signal is maintained. The remaining ankle tendons are unremarkable. Given the extensive edema in the soft tissues surrounding the ankle, evaluation of the ankle ligaments is limited. The talofibular and tibiofibular ligaments are not well seen. The calcaneofibular ligament is not well seen. A majority of the deltoid ligament is likely chronically torn with minimal fibers remaining intact. The Lisfranc ligament is intact. There is circumferential soft tissue swelling. No fluid collections seen. The Achilles tendon is intact. The plantar fascia is intact. Plantar heel spur noted. IMPRESSION: Diffuse marrow edema surrounding the ankle mortise as detailed above, affecting the distal tibia and fibula, the talus, and the calcaneus. This appearance is nonspecific. A joint effusion is present and this could represent septic arthritis with associated osteomyelitis. Neuropathic or degenerative changes could have this appearance. Similarly, edema throughout the deep musculature of the foot could be reactive for neuropathic in nature. No evidence for abscess.
--- NOTE | 2016-11-17 17:43 | Cons- Orthopedic ---
General Information and HPI Consulting Request Date of Consult: 11/17/16 Requested By: MIREYA BRAUN M.D Reason for Consult: Right ankle pain Rule out septic joint Source of Information: patient, old records Exam Limitations: no limitations History of Present Illness: Patient is a 66-year-old man who had an injury to his right ankle on 10/18/2016. He was diagnosed with fibular fracture and medial malleolus fracture. He developed significant swelling erythema following this injury and was treated with antibiotics for presumed cellulitis. Patient has multiple medical problems and was admitted on 2 separate occasions this month. No recent fevers. Patient describes improvement recently with the swelling and the erythema. Still has medial ankle pain. 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 Ambulation: independent IADLs Independent: shopping, housework, finances, food prep, telephone, transportation , medication admin. Exam & Diagnostic Data Vital Signs and I&O Vital Signs Date Time Temp Pulse Resp B/P B/P Pulse O2 O2 Flow FiO2 Mean Ox Delivery Rate 11/17 1634 98.0 70 16 122/62 98 Room Air 11/17 1317 98.2 68 18 129/66 98 Room Air 11/17 1054 76 18 109/56 11/17 1023 80 76/42 11/17 1003 97.0 84 20 86/60 97 Room Air Intake & Output 11/17 1600 11/17 0800 11/17 0000 11/16 1600 11/16 0800 11/16 0000 Intake Total 2000 Output Total Balance 2000 Intake, IV 2000 Patient 205 lb Weight Weight Reported by Patient Measurement Method Physical Exam: Patient was examined in the emergency room. He was alert and appropriate and the emergency room. He answered questions concerning his right ankle. He reiterated that his ankle is much improved. Examination of the ankle revealed mild tenderness along the medial malleolus. Possible joint effusion on exam. Moderate diffuse swelling. No erythema. There are some chronic skin changes medially consistent with previous inflammation. Calf is soft and nontender. No specific tenderness over the fibula. Ankle range of motion was abnormal. Dorsiflexion to 10. Plantar flexion to 20. Imaging Results: I reviewed x-rays that were done previously and I reviewed a recent MRI of the ankle. These studies revealed severe degenerative changes of the right ankle. The fibular fracture appears to be healed. There is fracture line and chronic changes along the medial malleolus. There were severe osteophyte formations consistent with osteoarthritis. There is edema throughout the ankle surrounding structures. Assessment/Plan Assessment/Plan Osteoarthritis right ankle/recent ankle fracture--the exam today is relatively benign with the exception of the changes consistent with osteoarthritis. However, patient has been on antibiotics and therefore the exam may be compromised to some degree. Patient should be left off of antibiotics and monitor clinical status. If he has recurrence of his pain or has increased swelling or develops erythema, then further evaluation can be done including aspiration. Due to the severe osteoarthritic changes may be best to obtain the aspiration of the ankle with interventional radiology. Based on my exam today and patient's reported improvement of his symptoms, Aspiration is not necessary. His clinical progress will dictate future need for intervention Consult Acknowledgment - Thank you for your consult request. Attending MD Review Statement Attending Statement Attending MD Statement: examined this patient, I left voice mail message with Dr Garcia
[2016-11-17 17:57] VITALS: BP 130/62
[2016-11-17 22:09] VITALS: BP 104/64
[2016-11-18 06:19] VITALS: BP 112/62
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
[2016-11-18 09:06] LABS: ABSOLUTE BASOPHIL COUNT 0 /CUMM (0.0-0.2); ABSOLUTE EOSINOPHIL COUNT 0.5 /CUMM (0.0-0.7); ABSOLUTE GRANULOCYTE CT 6.5 /CUMM (1.4-6.5); ABSOLUTE LYMPH COUNT 2.5 /CUMM (1.2-3.4); ABSOLUTE MONOCYTE COUNT 0.8 /CUMM (0.10-0.60); BASOPHIL % 0.4 % (0.0-2.0); EOSINOPHIL % 4.8 % (0-5); GRANULOCYTE % 62.9 % (42.2-75.2); HEMATOCRIT 27.3 % (42-52); MEAN CORPUSCULAR HGB 27.9 PG (27.0-31.0); MEAN CORPUSCULAR HGB CONC 32.5 G/DL (33.0-37.0); MEAN CORPUSCULAR VOLUME 85.7 FL (80.0-94.0); PLATELET COUNT 394 /CUMM (130-400); RBC DISTRIBUTION WIDTH 14.2 % (11.5-14.5); RED BLOOD CELL CT 3.19 /CUMM (4.70-6.10); WHITE BLOOD CELL COUNT 10.4 /CUMM (4.8-10.8)
[2016-11-18 13:57] VITALS: BP 114/64
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
[2016-11-18 23:09] VITALS: BP 119/61
[2016-11-19 07:42] VITALS: BP 116/56
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
[2016-11-19 13:32] VITALS: BP 112/56
--- NOTE | 2016-11-19 14:06 | PN- Att Addend ---
Attending MD Review Statement Attending Statement Attending MD Statement: examined this patient, discuss w/resident/PA/SCHOOL LIBRARY MEDIA PROGRAM DIRECTOR, agreed w/resident/PA/SCHOOL LIBRARY MEDIA PROGRAM DIRECTOR, reviewed EMR data (avail), discussed w/nursing Attending Assessment/Plan: Vital Signs Date Time Temp Pulse Resp B/P B/P Pulse O2 O2 Flow FiO2 Mean Ox Delivery Rate 11/19 1332 98.7 84 18 112/56 97 Room Air 11/19 0742 98.2 68 20 116/56 95 Room Air 11/18 2309 98.3 62 18 119/61 95 Room Air Patient seen and examined at bedside. Discussed with patient the care plan. Patient is going to have IR guided aspiration/ biopsy of his right ankle swelling. Patient's hemoglobin dropped to 8.9 yesterday from 10.8 with patient did receive IV fluids since admission. We will repeat his CBC tomorrow to make sure his hemoglobin is staying stable. We will also follow-up on his culture results from the aspiration/biopsy today.
--- NOTE | 2016-11-19 14:11 | PN- Infect Dx ---
Subjective Subjective: Afebrile. He notes occasional discomfort in the right ankle. Objective Last 24 Hrs of Vital Signs/I&O Vital Signs Date Time Temp Pulse Resp B/P B/P Pulse O2 O2 Flow FiO2 Mean Ox Delivery Rate 11/19 1332 98.7 84 18 112/56 97 Room Air 11/19 0742 98.2 68 20 116/56 95 Room Air 11/18 2309 98.3 62 18 119/61 95 Room Air Intake & Output 11/19 1600 11/19 0800 11/19 0000 Intake Total 1500 Output Total 502 383 8877 Balance -200 -800 500 Intake, Oral 1500 Output, Urine 944 620 0532 Physical Exam Other Physical Findings: He appears comfortable in no acute distress Extremities right ankle swelling, warmth and tenderness, with no erythema, and with decreased range of motion Results Last 24 Hours of Lab Results: No labs from today Last 24 Hours of Delroy Results: Blood cultures November 17 negative Assessment/Plan Impression: Stable off antibiotics with temperatures and white blood cell count normal. His MRI of the right ankle suggests the possibility of a septic arthritis and osteomyelitis, and he is awaiting aspiration of the right ankle joint by IR to rule out a septic arthritis. Suggestion: 1. Await aspiration of the right ankle joint by IR later today 2. Follow-up culture from the above aspiration 3. Continue to follow off antibiotics pending above
--- NOTE | 2016-11-19 16:18 | INTERVENTIONAL RADIOLOGY RPT ---
EXAMINATION: Fluoroscopic guided aspiration of right ankle joint CLINICAL INFORMATION: Right ankle arthritis. Concern for infected joint. Aspiration requested. COMPARISON: Right ankle radiographs 10/28/2016 and right ankle MRI 11/17/2016 TECHNIQUE: Informed consent was obtained from the patient prior to the procedure. During this process, the procedure and potential alternatives were explained along with the intended outcome and benefits. The risks of the procedure including the possibility of an unsuccessful procedure, as well as the risk of not doing the procedure was discussed. The patient was given the opportunity to ask questions regarding the procedure and appeared competent to make decisions. The signed informed consent form was placed in the medical record. Following informed consent the patient was placed in the right side down lateral decubitus position on fluoroscopic table. A time out procedure was performed. The right ankle region was prepped and draped in usual sterile fashion. 1% lidocaine was infiltrated into the skin and subcutaneous tissues. A 25-gauge needle was introduced into the ankle joint under fluoroscopic guidance, however, no fluid could be aspirated. For this reason, A 21-gauge needle was introduced into the ankle joint under fluoroscopic guidance. Only approximately 1 mL of blood-tinged fluid could be aspirated until aspiration ceased. At this time 2cc of Optiray contrast was injected to insure intra-articular position within the ankle joint. This was followed by attempted lavage of the ankle joint by injecting 5 mL of preservative-free normal saline with repeat aspiration of only approximately 3 mL. Both aspirated samples were sent for culture as requested. Maximum sterile technique was utilized throughout. The needle was removed. Good hemostasis was achieved. A sterile dressing was placed. The patient tolerated the procedure well and was discharged from the room in good condition and monitored with instructions. No complications. FLUOROSCOPY TIME: 1.7 minutes IMPRESSION: Successful fluoroscopic guided aspiration of the right ankle joint.
[2016-11-19 22:49] VITALS: BP 100/61
--- NOTE | 2016-11-20 06:33 | PN- Housestaff ---
DEXTER BORJAS,RAMESH 11/20/16 0633: Subjective Follow-up For: Right ankle arthritis, ?OM Complaints: no complaints Subjective: I followed up and examined the patient today. He is resting comfortably in his bed, offers no complaints, vitals have been stable, no overnight issues. Review of Systems Constitutional: Reports: no symptoms. Objective Last 24 Hrs of Vital Signs/I&O Vital Signs Date Time Temp Pulse Resp B/P B/P Pulse O2 O2 Flow FiO2 Mean Ox Delivery Rate 11/20 1420 97.9 74 18 110/70 97 Room Air 11/20 0800 95 Room Air Room Air 11/20 0741 98.1 70 18 98/65 96 Room Air 11/19 2249 98.2 72 18 100/61 96 Room Air Intake & Output 11/20 1600 11/20 0800 11/20 0000 Intake Total 720 Output Total 1150 250 Balance -430 -250 Intake, Oral 720 Output, Urine 1150 250 Physical Exam General Appearance: Alert, Oriented X3, Cooperative, No Acute Distress Other Physical Findings: General: well nourished patient, not in distress Head: Normocephalic, atraumatic Eyes: Pupils normal in size, regular, reacting to light and accommodation, EOM normal Neck: Supple, full range of motion, no thyromegaly Heart: Regular rate, regular rhythm Lung: Normal breath sound bilaterally Added sound not heard Abd: Soft, non-tender, no distention appreciated Back: Normal range of motion Extremities: Normal knee exam bilaterally, no pedal edema, Distal neurovascular intact. RIGHT ANKLE HAS PERMANENT VALGUS DEFORMITY WITH SWELLING AT ANKLE JOINT AND SOME DISCOLORATION OVER THE MEDICAL MALLEOLUS WITH LOSS OF NORMAL SUPERFICIAL ANATOMY, TENDER ON PALPATION, SAYS ITS GETTING BETTER THAN BEFORE, DISTAL NEURO VASCULATURE INTACT. A 1x1 tape is over the IR guided aspiration site. No leakage, not tender. Neurologic: Alert, oriented x3, Cranial exam grossly intact, Speech is clear and coherent Skin: Warm and dry, except discoloration as mentioned above for right ankle Psychiatric: Calm, cooperative, coherant Current Medications: Current Medications Sig/Rajeev Start time Last Medication Dose Route Stop Time Status Admin Acetaminophen 650 MG Q6P PRN 11/17 1630 AC PO Acetaminophen 1,000 MG Q6P PRN 11/17 1630 AC IV Heparin Sodium 5,000 UNIT Q8 11/20 1400 AC 11/20 (Porcine) SC 1529 Oxycodone/ 2 TAB Q6P PRN 11/17 1630 AC 11/19 Acetaminophen PO 204 Polyethylene Glycol 17 GM DAILY 11/18 1000 AC 11/20 PO 1130 Senna/Docusate Sodium 1 TAB BID 11/17 2200 AC 11/20 PO 1129 Last 24 Hrs of Lab/Delroy Results Last 24 Hrs of Labs/Mics: Laboratory Tests 11/20/16 0610: CBC w Diff NO MAN DIFF REQ, RBC 3.42 L, MCV 85.4, MCH 28.2, RDW 13.9, MPV 7.6, Gran % 58.7, Lymphocytes % 26.8, Monocytes % 9.4 H, Eosinophils % 4.7, Basophils % 0.4, Absolute Granulocytes 5.9, Absolute Lymphocytes 2.7, Absolute Monocytes 0.9 H, Absolute Eosinophils 0.5, Absolute Basophils 0, PUBS MCHC 33.0 Assessment/Plan Assessment: 66-year-old male with PMH of HTN, CKD, medial malleolar fracture with high fibula fracture not treated with ORIF, syndesmotic injury with unstable ankle all leading to end-stage ankle arthritis, had recent slip and fall injury on , seen in ED and later admitted at , was referred from outpatient clinic on 11/17/16 with a concern of osteomyelitis/septic arthritis/abscess of his right ankle joint. Patient is currently admitted to the general medical floor for the management of following issues: # Right ankle injury, status post slip and fall injury on 10/17/2016 Patient has had multiple trauma in his right ankle. He was not following up regularly with orthopedic service. However, he mentionedthat his right ankle is slowly getting better and not worse. His clinical evaluation done by a provider at [facility] to rule out osteomyelitis/septic arthritis/abscess brought him to the emergency department. * At this point, his joint does not look like he has septic arthritis or an abscess, given his WBC count has trended down to normal, IR guided aspiration was negative, and he remains afebrile, off antibiotic. * Orthopedic evaluation suggested to keep him off antibiotic, while we rule out possible osteomyelitis. Orthopedic service service appreciated. * Infectious disease service consult appreciated. We want to rule out osteomyelitis completely at this setup, as the patient is poor at following-up as scheduled. Chronic osteomyelitis is the next differential that comes up as septic arthritis is now ruled out. Bone scan can be done tomorrow to assess further. #History of hypertension on meds Patient's blood pressure was in the lower range when he initially presented to the emergency department, is now getting better, thus will hold his antihypertensive medications for now. We will reassess the situation again in the morning. #Acute kidney injury on chronic kidney disease Patient has a long-standing history of chronic kidney disease and was following Dr. Barreto per EMR. His creatinine has come down from 2.8-1.8, which appears to be his baseline at 10/27/2016, after fluid resuscitation, thus confirming the diagnosis of prerenal failure. We will avoid nephrotoxic drugs, and he doesn't have any urologic obstruction, thus ruling out other forms of renal failure. Will repeat BEp tomorrow. #Diet: Heart healthy diet #DVT prophylaxis with subcutaneous heparin #CODE STATUS is DNR/DNI Problem List: 1. Arthritis of ankle, right 2. Acute kidney injury 3. CKD (chronic kidney disease) Pain Ratin Pain Location: rt ankle, on pressing medially Pain Goal: Pain 4 or less Pain Plan: prn Tomorrow's Labs & Rationales: 3 phase bone scan to r/o osteomyelitis. TATIANA BORJAS,BA 11/20/16 1309: Attending MD Review Statement Attending Statement Attending MD Statement: examined this patient, discuss w/resident/PA/GRITTING MACHINE OPERATOR, agreed w/resident/PA/GRITTING MACHINE OPERATOR, reviewed EMR data (avail), discussed with nursing, discussed with case mgmt Attending Assessment/Plan: IR notes that they could get only 1 mL before they lavaged the ankle joint and then got 3 mL that was sent for micro-alone. Cell count could not be performed. Micro-is showing white cells but no growth to date. At this point I am reassured that this is not a septic arthritis but certainly chronic osteo remains a concern. At this point I'll talk to ID about the best way to pursue a bone biopsy. He is normotensive off his blood pressure medicines and his CKD appears stable. I think the anemia is all chronic disease from his underlying renal disease and probable osteo and will need to follow that.
[2016-11-20 07:41] VITALS: BP 98/65
[2016-11-20 08:15] LABS: ABSOLUTE BASOPHIL COUNT 0 /CUMM (0.0-0.2); ABSOLUTE EOSINOPHIL COUNT 0.5 /CUMM (0.0-0.7); ABSOLUTE GRANULOCYTE CT 5.9 /CUMM (1.4-6.5); ABSOLUTE LYMPH COUNT 2.7 /CUMM (1.2-3.4); ABSOLUTE MONOCYTE COUNT 0.9 /CUMM (0.10-0.60); BASOPHIL % 0.4 % (0.0-2.0); EOSINOPHIL % 4.7 % (0-5); GRANULOCYTE % 58.7 % (42.2-75.2); HEMATOCRIT 29.2 % (42-52); MEAN CORPUSCULAR HGB 28.2 PG (27.0-31.0); MEAN CORPUSCULAR VOLUME 85.4 FL (80.0-94.0); MEAN PLATELET VOLUME 7.6 FL (7.4-10.4); PLATELET COUNT 389 /CUMM (130-400); RBC DISTRIBUTION WIDTH 13.9 % (11.5-14.5); RED BLOOD CELL CT 3.42 /CUMM (4.70-6.10); WHITE BLOOD CELL COUNT 10.1 /CUMM (4.8-10.8)
[2016-11-20 14:20] VITALS: BP 110/70
--- NOTE | 2016-11-20 15:07 | PN- Infect Dx ---
Subjective Subjective: Afebrile without complaints Objective Last 24 Hrs of Vital Signs/I&O Vital Signs Date Time Temp Pulse Resp B/P B/P Pulse O2 O2 Flow FiO2 Mean Ox Delivery Rate 11/20 1420 97.9 74 18 110/70 97 Room Air 11/20 0800 95 Room Air Room Air 11/20 0741 98.1 70 18 98/65 96 Room Air 11/19 2249 98.2 72 18 100/61 96 Room Air Intake & Output 11/20 1600 11/20 0800 11/20 0000 Intake Total Output Total 800 250 Balance -800 -250 Output, Urine 800 250 Physical Exam Other Physical Findings: He appears comfortable in no acute distress Extremities right ankle swelling and slight warmth, with no erythema, tender with extension with slight improved range of motion compared to last exam Results Last 24 Hours of Lab Results: Laboratory Tests 11/20 0610 Hematology CBC w Diff NO MAN DIFF REQ WBC (4.8 - 10.8 /CUMM) 10.1 RBC (4.70 - 6.10 /CUMM) 3.42 L Hgb (14.0 - 18.0 G/DL) 9.6 L Hct (42 - 52 %) 29.2 L MCV (80.0 - 94.0 FL) 85.4 MCH (27.0 - 31.0 PG) 28.2 RDW (11.5 - 14.5 %) 13.9 Plt Count (130 - 400 /CUMM) 389 MPV (7.4 - 10.4 FL) 7.6 Gran % (42.2 - 75.2 %) 58.7 Lymphocytes % (20.5 - 51.1 %) 26.8 Monocytes % (1.7 - 9.3 %) 9.4 H Eosinophils % (0 - 5 %) 4.7 Basophils % (0.0 - 2.0 %) 0.4 Absolute Granulocytes (1.4 - 6.5 /CUMM) 5.9 Absolute Lymphocytes (1.2 - 3.4 /CUMM) 2.7 Absolute Monocytes (0.10 - 0.60 /CUMM) 0.9 H Absolute Eosinophils (0.0 - 0.7 /CUMM) 0.5 Absolute Basophils (0.0 - 0.2 /CUMM) 0 PUBS MCHC (33.0 - 37.0 G/DL) 33.0 Last 24 Hours of Delroy Results: Right ankle aspiration November 19 negative Blood cultures 2 November 17 negative Assessment/Plan Impression: Stable off antibiotics with temperatures and white blood cell count remaining normal. He underwent aspiration of the right ankle joint yesterday, with cultures so far negative. Have reviewed his MRI with IR with consideration of a bone biopsy, and the recommendation was to obtain a 3-phase bone scan first, with consideration of a white blood cell scan based on these results. Suggestion: 1. Follow-up the right ankle synovial fluid culture 2. Would order a 3 phase (triple phase) bone scan (as discussed with IR) 3. Continue to follow off antibiotics pending above
[2016-11-20 21:29] VITALS: BP 122/68
[2016-11-21 06:45] VITALS: BP 123/70
--- NOTE | 2016-11-21 08:32 | PN- Housestaff ---
DEXTER BORJAS,RAMESH 11/21/16 0831: Subjective Follow-up For: Right ankle arthritis, ?OM Subjective: Patient followed up by me today. He is resting comfortably in bed, not in distress, vital signs have been stable, offers no complaints, no overnight issues. Review of Systems Constitutional: Reports: no symptoms. Objective Last 24 Hrs of Vital Signs/I&O Vital Signs Date Time Temp Pulse Resp B/P B/P Pulse O2 O2 Flow FiO2 Mean Ox Delivery Rate 11/21 1429 99.1 83 20 138/72 99 Room Air 11/21 0645 98.3 76 18 123/70 93 Room Air Intake & Output 11/21 1600 11/21 0800 11/21 0000 Intake Total 800 480 480 Output Total 800 400 700 Balance 0 80 -220 Intake, Oral 800 480 480 Output, Urine 800 400 700 Physical Exam General Appearance: Alert, Oriented X3, Cooperative, No Acute Distress Other Physical Findings: General: well nourished patient, not in distress Head: Normocephalic, atraumatic Eyes: Pupils normal in size, regular, reacting to light and accommodation, EOM normal Neck: Supple, full range of motion, no thyromegaly Heart: Regular rate, regular rhythm Lung: Normal breath sound bilaterally Added sound not heard Abd: Soft, non-tender, no distention appreciated Back: Normal range of motion Extremities: Normal knee exam bilaterally, no pedal edema, Distal neurovascular intact. RIGHT ANKLE HAS PERMANENT VALGUS DEFORMITY WITH SWELLING AT ANKLE JOINT AND SOME DISCOLORATION OVER THE MEDICAL MALLEOLUS WITH LOSS OF NORMAL SUPERFICIAL ANATOMY, TENDER ON PALPATION, DISTAL NEURO VASCULATURE INTACT. Neurologic: Alert, oriented x3, Cranial exam grossly intact, Speech is clear and coherent Skin: Warm and dry, except discoloration as mentioned above for right ankle Psychiatric: Calm, cooperative, coherant Current Medications: Current Medications Sig/Rajeev Start time Last Medication Dose Route Stop Time Status Admin Acetaminophen 650 MG Q6P PRN 11/17 1630 AC PO Acetaminophen 1,000 MG Q6P PRN 11/17 1630 AC IV Heparin Sodium 5,000 UNIT Q8 11/20 1400 AC 11/21 (Porcine) SC 2110 Oxycodone/ 2 TAB Q6P PRN 11/17 1630 AC 11/21 Acetaminophen PO 2110 Patient Medication 1 ED .STK-MED ONE 11/21 1316 DC Teaching ED 11/21 1317 Polyethylene Glycol 17 GM DAILY 11/18 1000 AC 11/21 PO 0740 Senna/Docusate Sodium 1 TAB BID 11/170 AC 11/21 PO 9 Last 24 Hrs of Lab/Delroy Results Last 24 Hrs of Labs/Mics: Laboratory Tests 11/21/16 1012: Anion Gap 13, Estimated GFR 51 L, BUN/Creatinine Ratio 17.9 Assessment/Plan Assessment: 66-year-old male with PMH of HTN, CKD, medial malleolar fracture with high fibula fracture not treated with ORIF, syndesmotic injury with unstable ankle all leading to end-stage ankle arthritis, had recent slip and fall injury on , seen in ED and later admitted at , was referred from outpatient clinic on 11/17/16 with a concern of osteomyelitis/septic arthritis/abscess of his right ankle joint. Patient is currently admitted to the general medical floor for the management of following issues: # Right ankle injury, status post slip and fall injury on 10/17/2016 Patient has had multiple trauma in his right ankle. He was not following up regularly with orthopedic service. However, he mentionedthat his right ankle is slowly getting better and not worse. His clinical evaluation done by a provider at [facility] to rule out osteomyelitis/septic arthritis/abscess brought him to the emergency department. * At this point, his joint does not look like he has septic arthritis or an abscess, given his WBC count has trended down to normal, IR guided aspiration was negative, and he remains afebrile, off antibiotic. * Orthopedic evaluation suggested to keep him off antibiotic, while we rule out possible osteomyelitis. Orthopedic service service appreciated. * Infectious disease service consult appreciated. We want to rule out osteomyelitis completely at this setup, as the patient is poor at following-up as scheduled. Chronic osteomyelitis is possible, so a 3-phase bone scan was ordered today, the results of which came out later during the day confirming high suspicion for osteomyelitis. The next step would be to get a biopsy and culture of the tissue for proper treatment/management of osteomyelitis. #History of hypertension on meds Patient's blood pressure was in the lower range when he initially presented to the emergency department, is now getting better, thus will hold his antihypertensive medications for now. We will reassess the situation again in the morning. #Acute kidney injury on chronic kidney disease Patient has a long-standing history of chronic kidney disease and was following Dr. Barreto per EMR. His creatinine has come down from 2.8 to 1.8 and now at 1.4, after fluid resuscitation, thus confirming the diagnosis of prerenal failure. We will avoid nephrotoxic drugs, and he doesn't have any urologic obstruction, thus ruling out other forms of renal failure. Will repeat BEP tomorrow. #Diet: Heart healthy diet #DVT prophylaxis with subcutaneous heparin #CODE STATUS is DNR/DNI Problem List: 1. Ankle osteomyelitis, right 2. CKD (chronic kidney disease) 3. Arthritis of ankle, right Pain Ratin Pain Location: rt ankle Pain Goal: Pain 4 or less Pain Plan: prn Tomorrow's Labs & Rationales: BA LANE MD 11/21/16 1407: Attending MD Review Statement Attending Statement Attending MD Statement: examined this patient, discuss w/resident/PA/PRINTING ROLLER POLISHER, agreed w/resident/PA/PRINTING ROLLER POLISHER, reviewed EMR data (avail), discussed with nursing, discussed with case mgmt, reviewed images Attending Assessment/Plan: Patient is scheduled to have a bone scan today per IDs recommendations. 66-year-old male past medical history of chronic kidney disease with baseline creatinine of about 1.8. He also has a history of a chronic nonhealing fracture of his ankle that was then complicated by a fall in September. He's had 2 admissions now October 27 to October 3 and November 06 to November 08 both with ankle pain and swelling and associated dizziness and lightheadedness. On this admission we got an MRI which couldn't rule out osteo-or septic arthritis and we got IR to tap the joint but the fluid was too little to send for cell count and the micro-is pending. We have Dr. Urban on board for the consult who has recommended a bone scan to rule out osteo-and if the bone scan is unrevealing likely a white cell scan. If it is positive for osteo-we will need tissue diagnosis and a biopsy for the bug for osteomyelitis. Patient has had difficulty keeping orthopedic appointment and has no showed for 3 appointments outside secondary to transport issues. His pressures been stable off all antihypertensives at this point.
[2016-11-21] MEDS ORDERED: MIRALAX119 GM PO (08:35)
[2016-11-21] MEDS ORDERED: SENNA PLUS TAB1 EACH PO (08:36)
--- NOTE | 2016-11-21 08:39 | Patient Discharge Instructions ---
Discharge Instructions General Discharge Information You were seen/treated for: Arthritis of right ankle, r/o osteomyelitis You had these procedures: Bone biopsy of rt ankle Watch for these problems: pain, discharge, redness, swelling of the Rt ankle Special Instructions: Your blood pressure medication has been held because you were having a low to normal blood pressure while not on it. Please monitor your blood pressure regularly. Please f/u with your primary care physician to reassess the need to restart your blood pressure medications. Please follow up with the tank assembler Dr. Fly Vincent on Thursday at 12.45pm [facility] to follow up results of your bone biopsy as you may need mcfp antibiotics if it is positive for bone infection (osteomyelitis) Please return to emergency if symptoms worsen. Repeat CBC on thursday to watch Diet Continue normal diet: Yes Recommended Diet: Heart Healthy Activity Full Activity/No Limits: No Activity Self Limited: Yes Acute Coronary Syndrome Inclusion Criteria At DC or during hospital stay patient has or had the following: ACS DIAGNOSIS No Discharge Core Measures Meds if any: Prescribed or Continued at Discharge Meds if any: NOT Prescribed or Continued at Discharge Congestive Heart Failure Inclusion Criteria At DC or during hospital stay patient has or had the following: CHF DIAGNOSIS No Discharge Core Measures Meds if any: Prescribed or Continued at Discharge Meds if any: NOT Prescribed or Continued at Discharge Cerebrovascular accident Inclusion Criteria At DC or during hospital stay patient has or had the following: CVA/TIA Diagnosis No Discharge Core Measures Meds if any: Prescribed or Continued at Discharge Meds if any: NOT Prescribed or Continued at Discharge Venous thromboembolism Inclusion Criteria VTE Diagnosis No VTE Type NONE VTE Confirmed by (Test) NONE Discharge Core Measures - Per Current guidelines, there needs to be overlap - treatment for the first 5 days of Warfarin therapy. - If discharged on Warfarin prior to 5 days of - overlap therapy, the patient will need to be - assessed for post discharge needs including - *Post discharge parental anticoagulation - *Warfarin and/or parental anticoagulation education - *Follow up date to check INR post discharge At least 5 days overlap therapy as Inpatient No Meds if any: Prescribed or Continued at Discharge Note: Overlap Therapy is Warfarin and Anticoagulant Meds if any: NOT Prescribed or Continued at Discharge
--- NOTE | 2016-11-21 11:57 | PN- Infect Dx ---
Subjective Subjective: Afebrile without complaints Objective Last 24 Hrs of Vital Signs/I&O Vital Signs Date Time Temp Pulse Resp B/P B/P Pulse O2 O2 Flow FiO2 Mean Ox Delivery Rate 11/21 0645 98.3 76 18 123/70 93 Room Air 11/20 2129 98.8 79 20 122/68 96 11/20 1420 97.9 74 18 110/70 97 Room Air Intake & Output 11/21 1600 11/21 0800 11/21 0000 Intake Total 480 480 Output Total 400 400 700 Balance -400 80 -220 Intake, Oral 480 480 Output, Urine 400 400 700 Physical Exam Other Physical Findings: He is comfortable in no acute distress Extremities right ankle swelling and mild warmth, with decreased range of motion , tender on extension of the ankle, not changed from previous exam Results Last 24 Hours of Lab Results: Laboratory Tests 11/21 1012 Chemistry Sodium (137 - 145 mmol/L) 142 Potassium (3.5 - 5.1 mmol/L) 4.6 Chloride (98 - 107 mmol/L) 100 Carbon Dioxide (22 - 30 mmol/L) 28 Anion Gap (5 - 16) 13 BUN (9 - 20 mg/dL) 25 H Creatinine (0.7 - 1.2 mg/dL) 1.4 H Estimated GFR (>60 ml/min) 51 L BUN/Creatinine Ratio (7 - 25 %) 17.9 Last 24 Hours of Delroy Results: Right ankle fluid cultures November 19 negative Blood cultures 2 November 17 remaining negative Assessment/Plan Impression: Stable off antibiotics with temperatures and white blood cell count remaining normal. The cultures from the recent aspiration remain negative, suggesting he does not have a septic arthritis. He is scheduled for a bone scan today to further evaluate the right ankle, specifically to help rule out osteomyelitis. Suggestion: 1. Follow-up the final right ankle synovial fluid cultures 2. Await bone scan 3. Further evaluation, possibly with a white blood cell scan, based on above 4. Continue to follow off antibiotics pending above
[2016-11-21 14:29] VITALS: BP 138/72
--- NOTE | 2016-11-21 16:51 | NUCLEAR MEDICINE REPORT ---
EXAMINATION: NM BONE SCAN 3 PHASE CLINICAL INFORMATION: Rule out osteomyelitis, right ankle multiple injuries, redness and swelling. COMPARISON: No previous bone scan is available for comparison. MRI of the right ankle dated 11/17/2016 is available for comparison. TECHNIQUE: Initial rapid sequence images were obtained over the ankles in the anterior and posterior projections during the bolus injection of 32.6 mCi Tc-99m HDP. Static images of the knees to the feet were then obtained 2 hours post injection. FINDINGS: Initial rapid sequence images show diffuse increase in flow of moderate severity to the right ankle. Blood pool images obtained immediately following the flow study also show diffuse increase in blood pool activity in the right ankle. The delayed static images show intense abnormally increased activity in the right ankle at the tibiotalar articulation involving both the distal right tibia and the adjacent talar bone. Additional very mild foci of increased activity are present laterally in the mid right foot in the first metatarsophalangeal joints bilaterally. In the left ankle minimally increased activity is present in a small focus at the medial malleolus. In the other visualized bones there is minimally increased activity in small foci in the patellae bilaterally. IMPRESSION: Marked abnormalities are noted in all 3 phases, strongly suspicious for osteomyelitis. Severe degenerative changes at the sites of old fractures might be responsible for these abnormalities, but the severity of the flow abnormality suggests that active inflammation/infection is present.
[2016-11-21 22:41] VITALS: BP 132/80
[2016-11-22 07:16] VITALS: BP 124/60
--- NOTE | 2016-11-22 08:09 | PN- Housestaff ---
DEXTER BORJAS,RAMESH 11/22/16 0809: Subjective Follow-up For: Right ankle arthritis, ?OM Complaints: no complaints Subjective: Patient followed up by me today. He is resting comfortably in bed, not in distress, vital signs have been stable, offers no complaints, no overnight issues. Review of Systems Constitutional: Reports: no symptoms. Objective Last 24 Hrs of Vital Signs/I&O Vital Signs Date Time Temp Pulse Resp B/P B/P Pulse O2 O2 Flow FiO2 Mean Ox Delivery Rate 11/22 0716 98.3 72 18 124/60 96 Room Air 11/21 2241 99.0 80 20 132/80 96 Room Air 11/21 1429 99.1 83 20 138/72 99 Room Air Intake & Output 11/22 1600 11/22 0800 11/22 0000 Intake Total 600 Output Total 625 Balance -25 Intake, Oral 600 Output, Urine 625 Physical Exam General Appearance: Alert, Oriented X3, Cooperative, No Acute Distress Other Physical Findings: General: well nourished patient, not in distress Head: Normocephalic, atraumatic Eyes: Pupils normal in size, regular, reacting to light and accommodation, EOM normal Neck: Supple, full range of motion, no thyromegaly Heart: Regular rate, regular rhythm Lung: Normal breath sound bilaterally Added sound not heard Abd: Soft, non-tender, no distention appreciated Back: Normal range of motion Extremities: Normal knee exam bilaterally, no pedal edema, Distal neurovascular intact. RIGHT ANKLE HAS PERMANENT VALGUS DEFORMITY WITH SWELLING AT ANKLE JOINT AND SOME DISCOLORATION OVER THE MEDICAL MALLEOLUS WITH LOSS OF NORMAL SUPERFICIAL ANATOMY, TENDER ON PALPATION, DISTAL NEURO VASCULATURE INTACT. Neurologic: Alert, oriented x3, Cranial exam grossly intact, Speech is clear and coherent Skin: Warm and dry, except discoloration as mentioned above for right ankle Psychiatric: Calm, cooperative, coherant. Current Medications: Current Medications Sig/Rajeev Start time Last Medication Dose Route Stop Time Status Admin Acetaminophen 650 MG Q6P PRN 11/17 1630 AC PO Acetaminophen 1,000 MG Q6P PRN 11/17 1630 AC IV Heparin Sodium 5,000 UNIT Q8 11/20 1400 AC 11/22 (Porcine) SC 0606 Oxycodone/ 2 TAB Q6P PRN 11/17 1630 AC 11/21 Acetaminophen PO 2110 Patient Medication 1 ED .STK-MED ONE 11/21 1316 [facility] ED 11/21 1317 Polyethylene Glycol 17 GM DAILY 11/18 1000 AC 11/21 PO 0740 Senna/Docusate Sodium 1 TAB BID 11/17 2199 AC 11/21 PO 2109 Last 24 Hrs of Lab/Delroy Results Last 24 Hrs of Labs/Mics: Laboratory Tests 11/22/16 0620: Sodium Pending, Potassium Pending, Chloride Pending, Carbon Dioxide Pending, Anion Gap Pending, BUN Pending, Creatinine Pending, BUN/Creatinine Ratio Pending 11/21/16 1012: Anion Gap 13, Estimated GFR 51 L, BUN/Creatinine Ratio 17.9 Assessment/Plan Assessment: 66-year-old male with PMH of HTN, CKD, medial malleolar fracture with high fibula fracture not treated with ORIF, syndesmotic injury with unstable ankle all leading to end-stage ankle arthritis, had recent slip and fall injury on , seen in ED and later admitted at , was referred from outpatient clinic on 11/17/16 with a concern of osteomyelitis/septic arthritis/abscess of his right ankle joint. Patient is currently admitted to the general medical floor for the management of following issues: # Right ankle injury, status post slip and fall injury on 10/17/2016 Patient has had multiple trauma in his right ankle. He was not following up regularly with orthopedic service. However, he mentionedthat his right ankle is slowly getting better and not worse. His clinical evaluation done by a provider at [facility] to rule out osteomyelitis/septic arthritis/abscess brought him to the emergency department. * At this point, his joint does not look like he has septic arthritis or an abscess, given his WBC count has trended down to normal, IR guided aspiration was negative, and he remains afebrile, off antibiotic. * Orthopedic evaluation suggested to keep him off antibiotic, while we rule out possible osteomyelitis. Orthopedic service service appreciated. * Infectious disease service consult appreciated. We want to rule out osteomyelitis completely at this setup, as the patient is poor at following-up as scheduled. Chronic osteomyelitis is possible, so a 3-phase bone scan was done yesterday, confirming high suspicion for osteomyelitis. The next step would be to get a biopsy and culture of the tissue for proper treatment/management of osteomyelitis. * Podiatry service was requested for consult today. Will follow. #History of hypertension on meds Patient's blood pressure was in the lower range when he initially presented to the emergency department, is now getting better, thus were held his blood pressure has regularly been under control, thus not requiring medications at all. #Acute kidney injury on chronic kidney disease Patient has a long-standing history of chronic kidney disease and was following Dr. Barreto per EMR. His creatinine has come down from 2.8 to 1.8 and now at 1.3, after fluid resuscitation, thus confirming the diagnosis of prerenal failure. We will avoid nephrotoxic drugs, and he doesn't have any urologic obstruction, thus ruling out other forms of renal failure. Will repeat BEP tomorrow. #Diet: Heart healthy diet #DVT prophylaxis with subcutaneous heparin #CODE STATUS is DNR/DNI Problem List: 1. Ankle osteomyelitis, right 2. CKD (chronic kidney disease) 3. Near syncope 4. Acute kidney injury Pain Ratin Pain Location: rt ankle Pain Goal: Pain 4 or less Pain Plan: prn Tomorrow's Labs & Rationales: BEP, INR, CBC for possible Podiatry procedure. PADDY SCHWAB 11/22/16 1050: Attending MD Review Statement Attending Statement Attending MD Statement: examined this patient, discuss w/resident/PA/LATHE OPERATOR, agreed w/resident/PA/LATHE OPERATOR, discussed with family, reviewed EMR data (avail), discussed with nursing, discussed with case mgmt, reviewed images, amended to note Attending Assessment/Plan: cont current care, no new complaints, f/u bone scan results with ID, monitor off abx as per ID. plan is to get biopsy. consider podaitry consult.
[2016-11-22 14:59] VITALS: BP 108/63
[2016-11-23 07:22] VITALS: BP 114/70
[2016-11-23 07:57] LABS: ABSOLUTE BASOPHIL COUNT 0.1 /CUMM (0.0-0.2); ABSOLUTE EOSINOPHIL COUNT 0.4 /CUMM (0.0-0.7); ABSOLUTE GRANULOCYTE CT 6.8 /CUMM (1.4-6.5); ABSOLUTE LYMPH COUNT 2.9 /CUMM (1.2-3.4); ABSOLUTE MONOCYTE COUNT 1.1 /CUMM (0.10-0.60); BASOPHIL % 0.5 % (0.0-2.0); EOSINOPHIL % 3.9 % (0-5); HEMATOCRIT 28.2 % (42-52); MEAN CORPUSCULAR HGB 28.1 PG (27.0-31.0); MEAN CORPUSCULAR HGB CONC 32.8 G/DL (33.0-37.0); MEAN CORPUSCULAR VOLUME 85.9 FL (80.0-94.0); MEAN PLATELET VOLUME 7.6 FL (7.4-10.4); PLATELET COUNT 389 /CUMM (130-400); RBC DISTRIBUTION WIDTH 14.1 % (11.5-14.5); RED BLOOD CELL CT 3.28 /CUMM (4.70-6.10); WHITE BLOOD CELL COUNT 11.4 /CUMM (4.8-10.8)
--- NOTE | 2016-11-23 08:41 | PN- Housestaff ---
YUMIKO BORJAS,UNRULY 11/23/16 0840: Subjective Follow-up For: ??right ankle osteomyelitis Subjective: I saw and examined the patient today morning He is doing well today, reports 4/10 pain in the right ankle region. slept well. updated plan. Review of Systems Constitutional: Reports: see HPI. Comments: ROS negative except the above. Objective Last 24 Hrs of Vital Signs/I&O Vital Signs Date Time Temp Pulse Resp B/P B/P Pulse O2 O2 Flow FiO2 Mean Ox Delivery Rate 11/23 0722 98.6 80 18 114/70 96 Room Air 11/22 1459 98.8 83 20 108/63 96 Room Air Intake & Output 11/23 1600 11/23 0800 11/23 0000 Intake Total 120 Output Total 400 Balance -280 Intake, Oral 120 Output, Urine 400 Physical Exam General Appearance: Alert, Oriented X3, Cooperative Skin: No Rashes, No Breakdown, swelling and pain in the right ankle region, tender to palpation HEENT: Atraumatic, PERRLA Neck: Supple Cardiovascular: Normal S1, Normal S2, systolic murmur present Lungs: Clear to Auscultation, Normal Air Movement Abdomen: Normal Bowel Sounds, Soft, No Tenderness Neurological: Normal Speech, Normal Tone, Sensation Intact Extremities: No Clubbing, No Cyanosis, swelling and pain in the right ankle region Assessment/Plan Assessment: 66-year-old male with PMH of HTN, CKD, medial malleolar fracture with high fibula fracture not treated with ORIF, syndesmotic injury with unstable ankle all leading to end-stage ankle arthritis, had recent slip and fall injury on , seen in ED and later admitted at , was referred from outpatient clinic on 11/17/16 with a concern of osteomyelitis/septic arthritis/abscess of his right ankle joint. Patient is currently admitted to the general medical floor for the management of following issues: # Right ankle injury, status post slip and fall injury on 10/17/2016 Patient has had multiple trauma in his right ankle. He was not following up regularly with orthopedic service. However, he mentionedthat his right ankle is slowly getting better and not worse. His clinical evaluation done by a provider at [facility] to rule out osteomyelitis/septic arthritis/abscess brought him to the emergency department. * At this point, his joint does not look like he has septic arthritis or an abscess, given his WBC count has trended down to normal, IR guided aspiration was negative, and he remains afebrile, off antibiotic. * Orthopedic evaluation suggested to keep him off antibiotic, while we rule out possible osteomyelitis. Orthopedic service service appreciated. * Infectious disease service consult appreciated. We want to rule out osteomyelitis completely at this setup, as the patient is poor at following-up as scheduled. Chronic osteomyelitis is possible, so a 3-phase bone scan was done yesterday, confirming high suspicion for osteomyelitis. The next step would be to get a biopsy and culture of the tissue for proper treatment/management of osteomyelitis. * Scheduled for OR on thursday with podiatry service recommendations. #History of hypertension on meds Patient's blood pressure was in the lower range when he initially presented to the emergency department, is now getting better, thus were held his blood pressure has regularly been under control, thus not requiring medications at all. * Currently off antihypertensives. #Acute kidney injury on chronic kidney disease Patient has a long-standing history of chronic kidney disease and was following Dr. Barreto per EMR. His creatinine has come down from 2.8 to 1.8 and now at 1.3, after fluid resuscitation, thus confirming the diagnosis of prerenal failure. We will avoid nephrotoxic drugs, and he doesn't have any urologic obstruction, thus ruling out other forms of renal failure. Getting better every day. Cr - 1.2 today. #Diet: Heart healthy diet #DVT prophylaxis with subcutaneous heparin #CODE STATUS is DNR/DNI Problem List: 1. Ankle osteomyelitis, right 2. Arthritis of ankle, right Pain Ratin Pain Location: right ankle Pain Goal: Pain 4 or less Pain Plan: tylenol prn Tomorrow's Labs & Rationales: none PADDY SCHWAB 11/23/16 1124: Attending MD Review Statement Attending Statement Attending MD Statement: examined this patient, discuss w/resident/PA/HAND MEXICAN FOOD MAKER, agreed w/resident/PA/HAND MEXICAN FOOD MAKER, discussed with family, reviewed EMR data (avail), discussed with nursing, discussed with case mgmt, reviewed images, amended to note Attending Assessment/Plan: cont current care, no new complaints, f/u bone scan results with ID, monitor off abx as per ID. plan is to get biopsy. consider podiatry consult.
--- NOTE | 2016-11-23 10:55 | PN- Infect Dx ---
Subjective Subjective: Afebrile without complaints Objective Last 24 Hrs of Vital Signs/I&O Vital Signs Date Time Temp Pulse Resp B/P B/P Pulse O2 O2 Flow FiO2 Mean Ox Delivery Rate 11/23 0722 98.6 80 18 114/70 96 Room Air 11/22 1459 98.8 83 20 108/63 96 Room Air Intake & Output 11/23 1600 11/23 0800 11/23 0000 Intake Total 120 Output Total 400 Balance -280 Intake, Oral 120 Output, Urine 400 Physical Exam Other Physical Findings: He appears comfortable in no acute distress Extremities right ankle swelling unchanged, with no erythema, tender with movement, particularly extension, which is limited Results Last 24 Hours of Lab Results: Laboratory Tests 11/23 0515 Chemistry Sodium (137 - 145 mmol/L) 141 Potassium (3.5 - 5.1 mmol/L) 4.6 Chloride (98 - 107 mmol/L) 101 Carbon Dioxide (22 - 30 mmol/L) 26 Anion Gap (5 - 16) 13 BUN (9 - 20 mg/dL) 24 H Creatinine (0.7 - 1.2 mg/dL) 1.2 Estimated GFR (>60 ml/min) > 60 BUN/Creatinine Ratio (7 - 25 %) 20.0 Coagulation PT (9.4 - 12.5 SEC) 13.0 H INR (0.90 - 1.17) 1.24 H Hematology CBC w Diff NO MAN DIFF REQ WBC (4.8 - 10.8 /CUMM) 11.4 H RBC (4.70 - 6.10 /CUMM) 3.28 L Hgb (14.0 - 18.0 G/DL) 9.2 L Hct (42 - 52 %) 28.2 L MCV (80.0 - 94.0 FL) 85.9 MCH (27.0 - 31.0 PG) 28.1 RDW (11.5 - 14.5 %) 14.1 Plt Count (130 - 400 /CUMM) 389 MPV (7.4 - 10.4 FL) 7.6 Gran % (42.2 - 75.2 %) 60.0 Lymphocytes % (20.5 - 51.1 %) 25.8 Monocytes % (1.7 - 9.3 %) 9.8 H Eosinophils % (0 - 5 %) 3.9 Basophils % (0.0 - 2.0 %) 0.5 Absolute Granulocytes (1.4 - 6.5 /CUMM) 6.8 H Absolute Lymphocytes (1.2 - 3.4 /CUMM) 2.9 Absolute Monocytes (0.10 - 0.60 /CUMM) 1.1 H Absolute Eosinophils (0.0 - 0.7 /CUMM) 0.4 Absolute Basophils (0.0 - 0.2 /CUMM) 0.1 PUBS MCHC (33.0 - 37.0 G/DL) 32.8 L Last 24 Hours of Delroy Results: Right ankle fluid aspirates November 19 negative Recent Imaging Studies: Bone scan November 21 reveals marked abnormalities in the right ankle in all 3 phases , felt to be strongly suspicious for osteomyelitis Assessment/Plan Impression: Stable off antibiotics with temperatures and white blood cell count remaining normal. The cultures from the recent aspiration are negative, suggesting he does not have a septic arthritis. The bone scan, however, does suggest osteomyelitis and further evaluation, for example bone biopsy, may be necessary. Suggestion: 1. Would consider a bone biopsy, either by Podiatry or IR 2. Continue to follow off antibiotics pending above
[2016-11-23 15:06] VITALS: BP 130/72
[2016-11-23 23:29] VITALS: BP 125/63
--- NOTE | 2016-11-24 07:26 | PN- Housestaff ---
YUMIKO BORJAS,UNRULY 11/24/16 0725: Subjective Follow-up For: Chronic right heel osteomyelitis Subjective: I saw and examined the patient today morning He is lying in the bed, doing well. He is a little frustated about staying in hospital for longer time. Review of Systems Constitutional: Reports: see HPI. Objective Last 24 Hrs of Vital Signs/I&O Vital Signs Date Time Temp Pulse Resp B/P B/P Pulse O2 O2 Flow FiO2 Mean Ox Delivery Rate 11/24 1446 98.0 80 18 136/74 97 Room Air 11/24 0746 98.1 75 20 136/76 95 Room Air 11/23 2329 97.9 76 18 125/63 93 Room Air Intake & Output 11/24 1600 11/24 0800 11/24 0000 Intake Total 800 120 240 Output Total 500 750 500 Balance 300 -630 -260 Intake, Oral 800 120 240 Output, Urine 500 750 500 Physical Exam General Appearance: Alert, Oriented X3, Cooperative Skin: No Rashes, No Breakdown HEENT: Atraumatic Neck: Supple Cardiovascular: Normal S1, Normal S2 Lungs: Clear to Auscultation, Normal Air Movement Abdomen: Normal Bowel Sounds, Soft, No Tenderness Extremities: No Clubbing, No Cyanosis, evident swelling in the left andres region - mild tenderness present Vascular: Normal Pulses Current Medications: Current Medications Sig/Rajeev Start time Last Medication Dose Route Stop Time Status Admin Acetaminophen 650 MG Q6P PRN 11/17 1630 AC PO Heparin Sodium 5,000 UNIT Q8 11/20 1400 AC 11/24 (Porcine) SC 1426 Oxycodone/ 1 TAB Q6P PRN 11/23 0315 AC 11/23 Acetaminophen PO 1225 Oxycodone/ 2 TAB Q6P PRN 11/17 1630 AC 11/24 Acetaminophen PO 1430 Polyethylene Glycol 17 GM DAILY 11/18 1000 AC 11/24 PO 1426 Senna/Docusate Sodium 1 TAB BID 11/17 2200 AC 11/24 PO 1426 Assessment/Plan Assessment: 66-year-old male with PMH of HTN, CKD, medial malleolar fracture with high fibula fracture not treated with ORIF, syndesmotic injury with unstable ankle all leading to end-stage ankle arthritis, had recent slip and fall injury on , seen in ED and later admitted at , was referred from outpatient clinic on 11/17/16 with a concern of osteomyelitis/septic arthritis/abscess of his right ankle joint. Patient is currently admitted to the general medical floor for the management of following issues: # Right ankle injury, status post slip and fall injury on 10/17/2016 Patient has had multiple trauma in his right ankle. He was not following up regularly with orthopedic service. However, he mentionedthat his right ankle is slowly getting better and not worse. His clinical evaluation done by a provider at [facility] to rule out osteomyelitis/septic arthritis/abscess brought him to the emergency department. * At this point, his joint does not look like he has septic arthritis or an abscess, given his WBC count has trended down to normal, IR guided aspiration was negative, and he remains afebrile, off antibiotic. * Orthopedic evaluation suggested to keep him off antibiotic, while we rule out possible osteomyelitis. Orthopedic service service appreciated. * Infectious disease service consult appreciated. We want to rule out osteomyelitis completely at this setup, as the patient is poor at following-up as scheduled. Chronic osteomyelitis is possible, so a 3-phase bone scan was done yesterday, confirming high suspicion for osteomyelitis. The next step would be to get a biopsy and culture of the tissue for proper treatment/management of osteomyelitis. * Scheduled for OR on thursday with podiatry service recommendations. * NPO overnight. #History of hypertension on meds Patient's blood pressure was in the lower range when he initially presented to the emergency department, is now getting better, thus were held his blood pressure has regularly been under control, thus not requiring medications at all. * Currently off antihypertensives. #Acute kidney injury on chronic kidney disease Patient has a long-standing history of chronic kidney disease and was following Dr. Barreto per EMR. His creatinine has come down from 2.8 to 1.8 and now at 1.3, after fluid resuscitation, thus confirming the diagnosis of prerenal failure. We will avoid nephrotoxic drugs, and he doesn't have any urologic obstruction, thus ruling out other forms of renal failure. Getting better every day. * back to baseline. #Diet: Heart healthy diet #DVT prophylaxis with subcutaneous heparin #CODE STATUS is DNR/DNI Problem List: 1. Ankle osteomyelitis, right 2. Acute kidney injury Pain Ratin Pain Location: right ankle region Pain Goal: Pain 4 or less Pain Plan: tylenol prn oxycodon Tomorrow's Labs & Rationales: NONE PADDY SCHWAB 11/24/16 1141: Attending MD Review Statement Attending Statement Attending MD Statement: examined this patient, discuss w/resident/PA/ADMINISTRATIVE SUPPORT TECHNICIAN, agreed w/resident/PA/ADMINISTRATIVE SUPPORT TECHNICIAN, discussed with family, reviewed EMR data (avail), discussed with nursing, discussed with case mgmt, reviewed images, amended to note Attending Assessment/Plan: cont current care, no new complaints, f/u bone scan results with ID, monitor off abx as per ID. plan is to get biopsy. awaiting podiatry for biopsy tomorrow.
[2016-11-24 07:46] VITALS: BP 136/76
[2016-11-24 14:46] VITALS: BP 136/74
[2016-11-24 22:48] VITALS: BP 122/72
--- NOTE | 2016-11-25 07:04 | PN- Housestaff ---
DEXTER BORJAS,RAMESH 11/25/16 0703: Subjective Follow-up For: Right ankle arthritis, likely OM Complaints: no complaints Subjective: Patient followed up by me today. He is resting comfortably in bed, not in distress, vital signs have been stable, offers no complaints, no overnight issues. He is awaiting right ankle biopsy today. Review of Systems Constitutional: Reports: no symptoms. Objective Last 24 Hrs of Vital Signs/I&O Vital Signs Date Time Temp Pulse Resp B/P B/P Pulse O2 O2 Flow FiO2 Mean Ox Delivery Rate 11/25 0717 98.2 73 18 124/74 96 Room Air 11/24 2248 98.5 75 19 122/72 99 Room Air 11/24 1446 98.0 80 18 136/74 97 Room Air Intake & Output 11/25 1600 11/25 0800 11/25 0000 Intake Total 240 Output Total 550 400 Balance -550 -160 Intake, Oral 240 Output, Urine 550 400 Physical Exam General Appearance: Alert, Oriented X3, Cooperative, No Acute Distress Other Physical Findings: General: well nourished patient, not in distress Head: Normocephalic, atraumatic Eyes: Pupils normal in size, regular, reacting to light and accommodation, EOM normal Neck: Supple, full range of motion, no thyromegaly Heart: Regular rate, regular rhythm Lung: Normal breath sound bilaterally Added sound not heard Abd: Soft, non-tender, no distention appreciated Back: Normal range of motion Extremities: Normal knee exam bilaterally, no pedal edema, Distal neurovascular intact. RIGHT ANKLE HAS PERMANENT VALGUS DEFORMITY WITH SWELLING AT ANKLE JOINT AND SOME DISCOLORATION (hyperpigmentation) OVER THE MEDICAL MALLEOLUS WITH LOSS OF NORMAL SUPERFICIAL ANATOMY, mildly TENDER ON PALPATION, DISTAL NEURO VASCULATURE INTACT. Neurologic: Alert, oriented x3, Cranial exam grossly intact, Speech is clear and coherent Skin: Warm and dry, except discoloration as mentioned above for right ankle Psychiatric: Calm, cooperative, coherant. Current Medications: Current Medications Sig/Rajeev Start time Last Medication Dose Route Stop Time Status Admin Acetaminophen 650 MG Q6P PRN 11/17 1630 AC PO Docusate Sodium 100 MG BID PRN 11/25 0745 AC PO Heparin Sodium 5,000 UNIT Q8 11/20 1400 AC 11/25 (Porcine) SC 0633 Oxycodone/ 1 TAB Q6P PRN 11/23 0315 AC 11/25 Acetaminophen PO 0634 Oxycodone/ 2 TAB Q6P PRN 11/17 1630 AC 11/24 Acetaminophen PO 1430 Patient Medication 1 ED .STK-MED ONE 11/25 1345 DC Teaching ED 11/25 1346 Polyethylene Glycol 17 GM DAILY 11/18 1000 AC 11/25 PO 1318 Senna/Docusate Sodium 1 TAB BID 11/17 2200 AC 11/25 PO 1318 Last 24 Hrs of Lab/Delroy Results Last 24 Hrs of Labs/Mics: Laboratory Tests 11/25/16 0737: Anion Gap 10, Estimated GFR > 60, BUN/Creatinine Ratio 18.3, Magnesium 1.8, PT 12.7 H, INR 1.21 H, CBC w Diff NO MAN DIFF REQ, RBC 3.46 L, MCV 85.2, MCH 28.3, RDW 14.0, MPV 6.8 L, Gran % 62.6, Lymphocytes % 24.4, Monocytes % 8.5, Eosinophils % 4.2, Basophils % 0.3, Absolute Granulocytes 6.3, Absolute Lymphocytes 2.5, Absolute Monocytes 0.9 H, Absolute Eosinophils 0.4, Absolute Basophils 0, PUBS MCHC 33.2 Microbiology 11/25 1139 EXTREMITIE: Gross Specimen Examination - RECD 11/25 113 EXTREMITIE: Gram Stain - RECD Assessment/Plan Assessment: 66-year-old male with PMH of HTN, CKD, medial malleolar fracture with high fibula fracture not treated with ORIF, syndesmotic injury with unstable ankle all leading to end-stage ankle arthritis, had recent slip and fall injury on , seen in ED and later admitted at , was referred from outpatient clinic on 11/17/16 with a concern of osteomyelitis/septic arthritis/abscess of his right ankle joint. Patient is currently admitted to the general medical floor for the management of following issues: # Right ankle injury, status post slip and fall injury on 10/17/2016 Patient has had multiple trauma in his right ankle. He was not following up regularly with orthopedic service. However, he mentionedthat his right ankle is slowly getting better and not worse. His clinical evaluation done by a provider at [facility] to rule out osteomyelitis/septic arthritis/abscess brought him to the emergency department. * At this point, his joint does not look like septic arthritis or an abscess, given his WBC count has trended down to normal, IR guided aspiration was negative, and he remains afebrile, off antibiotic. * Orthopedic evaluation suggested to keep him off antibiotic, while we rule out possible osteomyelitis. Orthopedic service service appreciated. * Infectious disease service consult appreciated. We want to rule out osteomyelitis completely at this setup, as the patient is poor at following-up as scheduled. A 3-phase bone scan done demostrated high suspicion lesion for osteomyelitis. * The patient underwent debridement and bone biopsy with culture. Awaiting results. #History of hypertension on meds Patient's blood pressure was in the lower range when he initially presented to the emergency department, and has been asymptomatic. Patient's lisinopril was held during admission because creatinine was 2.8, significantly higher than his baseline of 1.2. During this admission, patient's blood pressure has remained within normal limit without requiring any additional antihypertensive medication , thus still on hold. Plan to restart his antihypertensive medication as an outpatient after following his serial blood pressures at home, by his PCP. * Continue off antihypertensives for now. #Acute kidney injury on chronic kidney disease Patient has a long-standing history of chronic kidney disease and was following Dr. Barreto per EMR. His creatinine has come down from 2.8 now at 1.2, after fluid resuscitation, thus confirming the diagnosis of prerenal failure. We will avoid nephrotoxic drugs, and he doesn't have any urologic obstruction, thus ruling out other forms of renal failure. Getting better every day. * Back to baseline, which is 1.2 today, as we do not have his baseline creatinine level. He always had higher Creatinine level in his past admission. #Diet: Heart healthy diet #DVT prophylaxis with subcutaneous heparin #CODE STATUS is DNR/DNI Problem List: 1. Ankle osteomyelitis, right 2. Arthritis of ankle, right 3. CKD (chronic kidney disease) Pain Ratin Pain Location: rt ankle Pain Goal: Pain 4 or less Pain Plan: prn Tomorrow's Labs & Rationales: CBC, BEP as post-operative check MIREYA BRAUN MD 11/25/16 1404: Attending Review Statement Attending Statement Attending Statement: examined this patient, discuss w/resident/PA/EDITOR, agreed w/resident/PA/EDITOR, reviewed EMR data (avail), discussed with nursing, discussed with case mgmt, amended to note Attending Assessment/Plan: Patient seen and examined. Resting comfortably limits in any acute distress. No issues overnight reported by nursing staff. Blood pressure remains well- controlled of antihypertensive medications. He underwent ankle biopsy earlier on today. On examination he is not in any acute distress. He offers no complaints. Problems: 1. Right ankle swelling: Elevated ESR, MRI and bone scan findings raise concern for osteomyelitis. 2. Acute kidney injury; resolved 3. Hypertension; blood pressure has been acceptable off antihypertensive medications since admission. Plan: - Follow-up results of bone biopsy. If positive patient will require long-term antibiotic therapy. - His blood pressure remains acceptable off his lisinopril/hydrochlorothiazide. Renal function has improved. Continue to monitor off his regimen. Further recommendations at the time of discharge. -Mobilize patient as tolerated. -Continue current pain regimen.
[2016-11-25 07:17] VITALS: BP 124/74
[2016-11-25 08:08] LABS: ABSOLUTE BASOPHIL COUNT 0 /CUMM (0.0-0.2); ABSOLUTE EOSINOPHIL COUNT 0.4 /CUMM (0.0-0.7); ABSOLUTE GRANULOCYTE CT 6.3 /CUMM (1.4-6.5); ABSOLUTE LYMPH COUNT 2.5 /CUMM (1.2-3.4); ABSOLUTE MONOCYTE COUNT 0.9 /CUMM (0.10-0.60); BASOPHIL % 0.3 % (0.0-2.0); EOSINOPHIL % 4.2 % (0-5); GRANULOCYTE % 62.6 % (42.2-75.2); HEMATOCRIT 29.5 % (42-52); MEAN CORPUSCULAR HGB 28.3 PG (27.0-31.0); MEAN CORPUSCULAR HGB CONC 33.2 G/DL (33.0-37.0); MEAN CORPUSCULAR VOLUME 85.2 FL (80.0-94.0); MEAN PLATELET VOLUME 6.8 FL (7.4-10.4); PLATELET COUNT 361 /CUMM (130-400); RED BLOOD CELL CT 3.46 /CUMM (4.70-6.10); WHITE BLOOD CELL COUNT 10.1 /CUMM (4.8-10.8)
[2016-11-25 08:12] LABS: PT 12.7 SEC (9.4-12.5)
--- NOTE | 2016-11-25 12:41 | Operative Report ---
Operative/Inv Procedure Report Surgery Date: 11/25/16 Name of Procedure: 1 open ankle arthrotomy right 2 bone biopsy right ankle 3 intraoperative administration of ankle block anesthesia 4 excisional debridement Pre-Operative Diagnosis: 1 septic right ankle 2 osteomyelitis right ankle Post-Operative Diagnosis: The same Estimated Blood Loss: scant Surgeon/Yarn Hauler: DEREK SHEPPARD DPM Anesthesia: moderate sedation, block Operative/Procedure Note Note: After obtaining informed consent the patient was brought to the operating room and placed on the operating table in the supine position. The patient isn't securely fastened to the operating table utilizing safety belt. After administration of IV sedation, 10 mL of 0.5% Marcaine plain was infiltrated about the patient's right ankle. Right foot and ankle within scrubbed prepped and draped in usual aseptic manner. Attention directed to the dorsal medial right ankle, where a 4 cm linear incision was made overlying the distal medial gutter. The dissection was then carried down through the soft tissues to the capture structures, which were incised. The periosteum overlying the medial malleolus was incised reflected, and specimen was harvested for both microbiologic and pathologic inspection. Any debris identified was debrided with curettage and rongeur. The open wound was then irrigated 3 L normal sterile saline infused with 50,000 to bacitracin following this, the foot was redraped and the surgeon's top of gestation clean gloves. Any bleeding vessels identified were cauterized or ligated as encountered. The capture structures were then reapproximated 3-0 Vicryl and the subtenons tissues reapproximated 4-0 Vicryl. The skin is reapproximated 3-0 nylon. Incision was dressed with Xeroform 4 x 4's Kerlix and Shravan wrap. The patient was noted tolerate both procedure and anesthesia well and the patient was transported from the operating room to recovery with vital signs stable.
[2016-11-25 16:30] VITALS: BP 140/68
[2016-11-25 22:13] VITALS: BP 150/80
[2016-11-26 06:33] VITALS: BP 144/72
--- NOTE | 2016-11-26 07:34 | PN- Housestaff ---
DEXTER BORJAS,RAMESH 11/26/16 0734: Subjective Follow-up For: Right ankle arthritis, ruling out osteomyelitis Subjective: I followed up and examined the patient today. He is resting comfortably in bed, does not offer any complaints, dressing is in place with the toes slightly swollen, to which I suggested to keep moving them if it does not that painful. Patient agreed to it. Vitals signs have been stable, no overnight issues. Review of Systems Constitutional: Reports: no symptoms. Objective Last 24 Hrs of Vital Signs/I&O Vital Signs Date Time Temp Pulse Resp B/P B/P Pulse O2 O2 Flow FiO2 Mean Ox Delivery Rate 11/26 1428 98.0 78 18 130/76 94 Room Air 11/26 0633 98.1 71 18 144/72 98 Room Air 11/25 2213 98.3 74 20 150/80 96 Intake & Output 11/26 1600 11/26 0800 11/26 0000 Intake Total 490 120 800 Output Total 500 500 600 Balance -10 -380 200 Intake, IV 10 Intake, Oral 480 120 800 Number 1 Bowel Movements Output, Urine 500 500 600 Physical Exam General Appearance: Alert, Oriented X3, Cooperative, No Acute Distress Other Physical Findings: General: well nourished patient, not in distress Head: Normocephalic, atraumatic Eyes: Pupils normal in size, regular, reacting to light and accommodation, EOM normal Neck: Supple, full range of motion, no thyromegaly Heart: Regular rate, regular rhythm Lung: Normal breath sound bilaterally Added sound not heard Abd: Soft, non-tender, no distention appreciated Back: Normal range of motion Extremities: Normal knee exam bilaterally, no pedal edema, Distal neurovascular intact. RIGHT ANKLE HAS PERMANENT VALGUS DEFORMITY, dressing in place with no soakage or leakage, DISTAL NEURO VASCULATURE INTACT, distally, the toes are swollen but have SERVICE COUNTER CASHIER<2 sec, and the patient can sense the touch, and can move toes, no signs of compromised blood supply. Neurologic: Alert, oriented x3, Cranial exam grossly intact, Speech is clear and coherent Skin: Warm and dry, except discoloration as mentioned above for right ankle Psychiatric: Calm, cooperative, coherant. Current Medications: Current Medications Sig/Rajeev Start time Last Medication Dose Route Stop Time Status Admin Acetaminophen 650 MG Q6P PRN 11/17 1630 AC PO Dexamethasone 4 MG .STK-MED ONE 11/25 1116 DC IM 11/25 1117 Docusate Sodium 100 MG BID PRN 11/25 0745 AC PO Fentanyl Citrate 100 MCG .STK-MED ONE 11/25 1115 DC IM 11/25 1116 Heparin Sodium 5,000 UNIT Q8 11/20 1400 AC 11/26 (Porcine) SC 0549 Midazolam HCl 2 MG .STK-MED ONE 11/25 1115 DC IM 11/25 1116 Ondansetron HCl 4 MG .STK-MED ONE 11/25 1115 DC IM 11/25 1116 Oxycodone/ 1 TAB Q6P PRN 11/23 0315 AC 11/25 Acetaminophen PO 205 Oxycodone/ 2 TAB Q6P PRN 11/17 1630 AC 11/24 Acetaminophen PO 1430 Patient Medication 1 ED .STK-MED ONE 11/25 1345 DC Teaching ED 11/25 1346 Polyethylene Glycol 17 GM DAILY 11/18 1000 AC 11/25 PO 1318 Senna/Docusate Sodium 1 TAB BID 11/17 2200 AC 11/25 PO 2050 Last 24 Hrs of Lab/Delroy Results Last 24 Hrs of Labs/Mics: Laboratory Tests 11/26/16 0605: Sodium Pending, Potassium Pending, Chloride Pending, Carbon Dioxide Pending, Anion Gap Pending, BUN Pending, Creatinine Pending, BUN/Creatinine Ratio Pending , CBC w Diff Pending, WBC Pending, RBC Pending, Hgb Pending, Hct Pending, MCV Pending, MCH Pending, RDW Pending, Plt Count Pending, MPV Pending, PUBS MCHC Pending 11/25/16 0737: Anion Gap 10, Estimated GFR > 60, BUN/Creatinine Ratio 18.3, Magnesium 1.8, PT 12.7 H, INR 1.21 H, CBC w Diff NO MAN DIFF REQ, RBC 3.46 L, MCV 85.2, MCH 28.3, RDW 14.0, MPV 6.8 L, Gran % 62.6, Lymphocytes % 24.4, Monocytes % 8.5, Eosinophils % 4.2, Basophils % 0.3, Absolute Granulocytes 6.3, Absolute Lymphocytes 2.5, Absolute Monocytes 0.9 H, Absolute Eosinophils 0.4, Absolute Basophils 0, PUBS MCHC 33.2 Microbiology 11/25 1139 EXTREMITIE: Gross Specimen Examination - RECD 11/25 113 EXTREMITIE: Gram Stain - RECD Assessment/Plan Assessment: 66-year-old male with PMH of HTN, CKD, medial malleolar fracture with high fibula fracture not treated with ORIF, syndesmotic injury with unstable ankle all leading to end-stage ankle arthritis, had recent slip and fall injury on , seen in ED and later admitted at , was referred from outpatient clinic on 11/17/16 with a concern of osteomyelitis/septic arthritis/abscess of his right ankle joint. Patient is currently admitted to the general medical floor for the management of following issues: # Right ankle injury, status post slip and fall injury on 10/17/2016 Patient has had multiple trauma in his right ankle. He was not following up regularly with orthopedic service. However, he mentionedthat his right ankle is slowly getting better and not worse. His clinical evaluation done by a provider at [facility] to rule out osteomyelitis/septic arthritis/abscess brought him to the emergency department. * Patient underwent right ankle biopsy and culture yesterday, pending culture reports, and is still stable with afebrile and normal labs. At this point, patient can be safely discharged home with health services, but requires follow- up with orthopedic services, podiatry services and his primary care physician. This was explained to the patient and he agrees to the plan. * Of note, patient has been off antibiotic, and is stable. He will be followed up for the culture and biopsy reports for possible IV/by mouth antibiotics and/ or further intervention. * Infectious disease service consult appreciated. #History of hypertension on meds Patient's blood pressure was in the lower range when he initially presented to the emergency department, and has been asymptomatic. Patient's lisinopril was held during admission because creatinine was 2.8, significantly higher than his baseline of 1.2. During this admission, patient's blood pressure has remained within normal limit without requiring any additional antihypertensive medication , thus still on hold. Plan to restart his antihypertensive medication as an outpatient after following his serial blood pressures at home, by his PCP. * Continue off antihypertensives for now. #Acute kidney injury on chronic kidney disease Patient has a long-standing history of chronic kidney disease and was following Dr. Barreto per EMR. His creatinine has come down from 2.8 now at 1.2, after fluid resuscitation, thus confirming the diagnosis of prerenal failure. We will avoid nephrotoxic drugs, and he doesn't have any urologic obstruction, thus ruling out other forms of renal failure. Getting better every day. * Back to baseline, which is 1.2 today, as we do not have his baseline creatinine level. He always had higher Creatinine level in his past admission. #Diet: Heart healthy diet #DVT prophylaxis with subcutaneous heparin #CODE STATUS is DNR/DNI Problem List: 1. Ankle osteomyelitis, right 2. Acute kidney injury Pain Ratin Pain Location: - Pain Goal: Pain 4 or less Pain Plan: prn, PO Tomorrow's Labs & Rationales: - MIREYA BRAUN MD 11/26/16 1426: Attending MD Review Statement Attending Statement Attending MD Statement: examined this patient, discuss w/resident/PA/GRANITE CUTTER, agreed w/resident/PA/GRANITE CUTTER, reviewed EMR data (avail), discussed with nursing, discussed with case mgmt, amended to note Attending Assessment/Plan: Patient seen and examined. Resting comfortably and not in any acute distress. No issues overnight. He remains afebrile and hemodynamically stable. He underwent biopsy yesterday. Culture reports before is negative. His pain is controlled on current regimen. Problems: 1. Right ankle swelling: Elevated ESR, MRI and bone scan findings raise concern for osteomyelitis. 2. Acute kidney injury; resolved 3. Hypertension; blood pressure has been acceptable off antihypertensive medications since admission. 4. Leukocytosis. Plan: -His leukocytosis is likely reactive. He has no clinical evidence of infection at present. Blood cultures are currently negative. -Final results of the bone culture and pathology, be followed up in the podiatry clinic as an outpatient. Further recommendations will be made at that time. -We will continue to hold his antihypertensive medications on discharge. This has been discussed with the patient. He has been advised to follow-up with his primary care provider as an outpatient.
[2016-11-26 08:06] LABS: ABSOLUTE BASOPHIL COUNT 0 /CUMM (0.0-0.2); ABSOLUTE EOSINOPHIL COUNT 0 /CUMM (0.0-0.7); ABSOLUTE GRANULOCYTE CT 11.1 /CUMM (1.4-6.5); ABSOLUTE LYMPH COUNT 2.2 /CUMM (1.2-3.4); ABSOLUTE MONOCYTE COUNT 0.8 /CUMM (0.10-0.60); BASOPHIL % 0.3 % (0.0-2.0); EOSINOPHIL % 0.3 % (0-5); GRANULOCYTE % 78.5 % (42.2-75.2); HEMATOCRIT 28.7 % (42-52); MEAN CORPUSCULAR HGB 28.2 PG (27.0-31.0); MEAN CORPUSCULAR VOLUME 85.5 FL (80.0-94.0); MEAN PLATELET VOLUME 7.5 FL (7.4-10.4); PLATELET COUNT 405 /CUMM (130-400); RED BLOOD CELL CT 3.35 /CUMM (4.70-6.10); WHITE BLOOD CELL COUNT 14.1 /CUMM (4.8-10.8)
--- NOTE | 2016-11-26 11:41 | PN- Infect Dx ---
Subjective Subjective: Afebrile without complaints Objective Last 24 Hrs of Vital Signs/I&O Vital Signs Date Time Temp Pulse Resp B/P B/P Pulse O2 O2 Flow FiO2 Mean Ox Delivery Rate 11/26 632 98.1 71 18 144/72 98 Room Air 11/25 2213 98.3 74 20 150/80 96 11/25 1630 98.4 77 20 140/68 97 Intake & Output 11/26 1600 11/26 0800 11/26 0000 Intake Total 120 800 Output Total 500 600 Balance -380 200 Intake, Oral 120 800 Output, Urine 500 600 Physical Exam Other Physical Findings: He appears comfortable in no acute distress Extremities right foot dressing intact Results Last 24 Hours of Lab Results: Laboratory Tests 11/26 604 Chemistry Sodium (137 - 145 mmol/L) 140 Potassium (3.5 - 5.1 mmol/L) 4.6 Chloride (98 - 107 mmol/L) 102 Carbon Dioxide (22 - 30 mmol/L) 28 Anion Gap (5 - 16) 10 BUN (9 - 20 mg/dL) 24 H Creatinine (0.7 - 1.2 mg/dL) 1.2 Estimated GFR (>60 ml/min) > 60 BUN/Creatinine Ratio (7 - 25 %) 20.0 Hematology CBC w Diff NO MAN DIFF REQ WBC (4.8 - 10.8 /CUMM) 14.1 H RBC (4.70 - 6.10 /CUMM) 3.35 L Hgb (14.0 - 18.0 G/DL) 9.5 L Hct (42 - 52 %) 28.7 L MCV (80.0 - 94.0 FL) 85.5 MCH (27.0 - 31.0 PG) 28.2 RDW (11.5 - 14.5 %) 14.0 Plt Count (130 - 400 /CUMM) 405 H MPV (7.4 - 10.4 FL) 7.5 Gran % (42.2 - 75.2 %) 78.5 H Lymphocytes % (20.5 - 51.1 %) 15.4 L Monocytes % (1.7 - 9.3 %) 5.5 Eosinophils % (0 - 5 %) 0.3 Basophils % (0.0 - 2.0 %) 0.3 Absolute Granulocytes (1.4 - 6.5 /CUMM) 11.1 H Absolute Lymphocytes (1.2 - 3.4 /CUMM) 2.2 Absolute Monocytes (0.10 - 0.60 /CUMM) 0.8 H Absolute Eosinophils (0.0 - 0.7 /CUMM) 0 Absolute Basophils (0.0 - 0.2 /CUMM) 0 PUBS MCHC (33.0 - 37.0 G/DL) 33.0 Last 24 Hours of Delroy Results: Right ankle bone culture November 25 negative after 1 day, with gram stain revealing rare white blood cells and no organisms Assessment/Plan Impression: Stable status post bone biopsy of the right medial malleolus yesterday for possible osteomyelitis, based on the positive bone scan, though his culture is so far negative. He remains otherwise stable off antibiotics with temperatures and white blood cell count remaining normal. Suggestion: 1. Follow-up bone culture and pathology 2. Continue to follow off antibiotics pending above
[2016-11-26 14:28] VITALS: BP 130/76
[2016-11-26] MEDS ORDERED: PERCOCET 5-3251 EACH PO ×3 (14:36→15:49)
--- NOTE | 2016-11-30 21:29 | Discharge Summary ---
Visit Information Visit Dates Admission Date: 11/17/16 Discharge Date: 11/26/16 Hospital Course Course Attending Physician: MIREYA BRAUN M.D Primary Care Physician: ROSALIA HE APRN [facility] Course: 66-year-old male with PMH of HTN, CKD, medial malleolar fracture with high fibula fracture not treated with ORIF, syndesmotic injury with unstable ankle all leading to end-stage ankle arthritis, had recent slip and fall injury on , was referred to the ED from outpatient clinic on 11/17/16 with a concern of osteomyelitis/septic arthritis/abscess of his right ankle joint. Patient was admitted and managed in general medical floor for the following issues: # Right ankle injury, status post slip and fall injury on 10/17/2016 Patient has had multiple trauma in his right ankle. He was not following up regularly with orthopedic service. However, he mentioned that his right ankle is slowly getting better and not worse. His clinical evaluation done by a provider at [facility] to rule out osteomyelitis/septic arthritis/abscess brought him to the emergency department. He underwent MRI which was not reported as possible osteomyelitis. He also underwent a fluroscopy guided right ankle aspiration on 11/19/2016 which ruled out septic arthritis. But the suspicion of osteomyelitis was still high, likely chronic, so he underwent right ankle 3- phase bone scan on 11/21/2016, which was suspicious about a possible osteomyelitis. Patient underwent right ankle biopsy and culture on 11/25/2016, pending culture and pathology reports. He has remained stable with afebrile and normal labs, except for leukocytosis towards the end of his stay which could be reactive. ID consultation was made early on and followed. Although the results of the biopsy and pathology was not available, patient was stable and was explained about the plan to place a PICC ( peripherally inserted central catheter) and IV antiobiotics for an extended period of time IF THE CULTURE IS POSITIVE/BIOPSY SHOWS OSTEOMYELITIS. If not, he could remain off antibiotics. He understood the paln and agreed to it. He was discharged home with health services. He requires follow-up with orthopedic services, podiatry services and his primary care physician. #History of hypertension on meds Patient's blood pressure was in the lower range when he initially presented to the emergency department, and was asymptomatic. Patient's lisinopril was held during admission because creatinine was 2.8, significantly higher than his baseline of 1.2. During this admission, patient's blood pressure remained within normal limit without requiring any additional antihypertensive medication , thus still on hold. Plan to restart his antihypertensive medication as an outpatient after following his serial blood pressures at home, by his PCP. #Acute kidney injury on chronic kidney disease Patient has a long-standing history of chronic kidney disease and was following Dr. Barreto per EMR. His creatinine has came down from 2.8 now at 1.2, after fluid resuscitation, thus confirming the diagnosis of prerenal failure. At the say of discharge, his Creatinine level was 1.2 which we considered baseline, as we do not have any lower value even the past. He always had higher Creatinine level in his past admission. #Diet: Heart healthy diet #DVT prophylaxis with subcutaneous heparin #CODE STATUS is DNR/DNI Allergies: Coded Allergies: No Known Allergies (10/18/16) Significant Procedures: * He underwent MRI which was not reported as possible osteomyelitis. * He also underwent a fluroscopy guided right ankle aspiration on 11/19/2016 which ruled out septic arthritis. * But the suspicion of osteomyelitis was still high, likely chronic, so he underwent right ankle 3-phase bone scan on 11/21/2016, which was suspicious about a possible osteomyelitis. * Patient underwent right ankle biopsy, excisional debridement and culture on by Dr Derek Hebert. Disposition Summary Disposition Principal Diagnosis: Right ankle injury, with concern for osteomyelitis. Additional Diagnosis: HTN, CKD, medial malleolar fracture with high fibula fracture not treated with ORIF, syndesmotic injury with unstable ankle all leading to end-stage ankle arthritis. Discharge Disposition: home health services Discharge Instructions General Discharge Information Code Status: Do Not Resucitate/Intubat Patient's Diet: Heart healthy Patient's Activity: As tolerated, with precautions on Right side. Follow-Up Instructions/Appts: Your blood pressure medication has been held because you were having a low to normal blood pressure while not on it. Please monitor your blood pressure regularly. Please f/u with your primary care physician to reassess the need to restart your blood pressure medications. Please follow up with the computer systems hardware analyst Dr. Derek Vincent on Thursday at 12.45pm [facility] [place] to follow up results of your bone biopsy as you may need longitudinal float operator antibiotics if it is positive for bone infection (osteomyelitis). Please return to emergency if symptoms worsen. Repeat CBC on thursday. Medications at Discharge Discharge Medications: Stop taking the following medications: Lisinopril/Hydrochlorothiazide (Lisinopril-Hctz 20-25 MG Tab) 20 MG-25 MG TABLET ORAL DAILY Qty = 90 Start taking the following new medications: Polyethylene Glycol 3350 (Miralax) 17 GRAM/DOSE POWDER 17 Gram ORAL DAILY as needed for CONSTIPATION Qty = 28 No Refills Comments: Last Taken: 11/26/16 Time: 0830 Sennosides/Docusate Sodium (Senna Plus Tablet) 8.6 MG-50 MG TABLET 1 Tablet ORAL TWICE DAILY as needed for CONSTIPATION Qty = 60 No Refills Comments: Last Taken: 11/26/16 Time: 0830 Oxycodone HCl/Acetaminophen (Percocet 5-325 MG Tablet) 5 MG-325 MG TABLET 1 Tablet ORAL THREE TIMES DAILY Qty = 15 No Refills Copies To: SHAMEKA HE APRN, DPM,DEREK Attending MD Review Statement Documenting Attending: MIREYA BRAUN M.D Other Findings: I have reviewed the discharge summary.
== END 2016-11-26 15:56 | disposition home health service (06) | DRG 478 ==
LOC: ERH 09:57 → ERHI 12:49 → 2NB 12:49 → ENRESERV 16:21 → ENTRNSPT 16:43 → 2NB 17:27 → CMPTRNSPT 11-18 07:08 → 2NB 11-18 07:40
PROVIDERS: Emergency Medicine; Preventive Medicine Public Health & General Preventive Medicine; ADMIT Internal Medicine
PROC: 0S9F3ZZ Drainage of Right Ankle Joint, Percutaneous Approach (ICD-10-PCS; 2016-11-19)
PROC: 0Q9 Lower Bones, Drainage (ICD-10-PCS; principal; 2016-11-25)
PROC: 0SBF0ZZ Excision of Right Ankle Joint, Open Approach (ICD-10-PCS; principal; 2016-11-25)
DX: M19.071 Primary osteoarthritis, right ankle and foot (principal); N17.9 Acute kidney failure, unspecified; E86.0 Dehydration; I12.9 Hypertensive chronic kidney disease with stage 1 through stage 4 chronic kidney disease, or unspecified chronic kidney disease; N18.9 Chronic kidney disease, unspecified; Z87.891 Personal history of nicotine dependence
CPT/HCPCS: 2NBP; 75618; 87070; 87075; 36415; 70030; 77002; 82436; 87040; 87071; 88307; 93005; 93010; 96360; 96361; A9561; J0131; J1100; J1644; J2001; J2405